=== PATIENT | female | born 1955 | race Caucasian/White ===

== ENCOUNTER → 2019-03-16 | Outpatient (CLI) | payer BC, MEDICARE ==
[~2019-03-16] MED LIST: ACET1TAB12 PO; HYDR-4068 PO; LISI10TA7 PO; META800T72 PO; ZOLP10TA2 PO
== END | disposition home or self-care (01) ==
LOC: SHCH 11:33
PROVIDERS: ATTEND Internal Medicine Cardiovascular Disease
DX: I87.2 Venous insufficiency (chronic) (peripheral) (principal); R60.9 Edema, unspecified
CPT/HCPCS: 93970

== ENCOUNTER → 2019-08-24 | Outpatient (CLI) | payer BC, MEDICARE | END | disposition home or self-care (01) | LOC: SHCH 08:14 | PROVIDERS: ATTEND Internal Medicine Cardiovascular Disease | DX: I82.812 Embolism and thrombosis of superficial veins of left lower extremity (principal) | CPT/HCPCS: 93971 ==

== ENCOUNTER → 2019-10-12 | Outpatient (CLI) | payer MEDICARE | END | disposition home or self-care (01) | LOC: SHCH 14:18 | PROVIDERS: ATTEND Internal Medicine Cardiovascular Disease | DX: Z09 Encounter for follow-up examination after completed treatment for conditions other than malignant neoplasm (principal); Z86.73 Personal history of transient ischemic attack (TIA), and cerebral infarction without residual deficits; Z95.1 Presence of aortocoronary bypass graft | CPT/HCPCS: 93971 ==

== ENCOUNTER → 2020-02-19 | Outpatient (CLI) | payer MEDICARE | END | disposition home or self-care (01) | LOC: SHCH 10:14 | PROVIDERS: ATTEND Internal Medicine Cardiovascular Disease | DX: I87.2 Venous insufficiency (chronic) (peripheral) (principal) | CPT/HCPCS: 93970 ==

== ENCOUNTER → 2021-01-26 | Outpatient (CLI) | payer MEDICARE ==
[~2021-01-26] MED LIST changes: +LISI10TA24 PO; -LISI10TA7 PO
== END | disposition home or self-care (01) ==
LOC: SHCH 08:52
PROVIDERS: ATTEND Internal Medicine Cardiovascular Disease
DX: I82.813 Embolism and thrombosis of superficial veins of lower extremities, bilateral (principal); I87.2 Venous insufficiency (chronic) (peripheral)
CPT/HCPCS: 93970

== ENCOUNTER → 2021-02-13 | Outpatient (CLI) | payer MEDICARE | END | disposition home or self-care (01) | LOC: SHCH 14:25 | PROVIDERS: ATTEND Internal Medicine Cardiovascular Disease | DX: I87.2 Venous insufficiency (chronic) (peripheral) (principal); Z09 Encounter for follow-up examination after completed treatment for conditions other than malignant neoplasm | CPT/HCPCS: 93971 ==

== ENCOUNTER → 2024-02-06 | Outpatient (CLI) | payer OTHER | END | disposition home or self-care (01) | LOC: LAB 12:42 | PROVIDERS: ATTEND Internal Medicine Cardiovascular Disease | DX: I11.9 Hypertensive heart disease without heart failure (principal); I73.9 Peripheral vascular disease, unspecified; R06.09 Other forms of dyspnea; R07.9 Chest pain, unspecified; I87.1 Compression of vein; I87.2 Venous insufficiency (chronic) (peripheral) | CPT/HCPCS: 93306; 93925; 93970 ==

== ENCOUNTER 2025-06-12 23:05 | Inpatient (IN) | payer OTHER ==
[~2025-06-12] VITALS: Ht 157.5 cm; Wt 99.3 kg
[~2025-06-12 23:05] MED LIST changes: +ZOLP-685 PO; -ZOLP10TA2 PO
[2025-06-12 23:40] LABS: IMMATURE GRANULOCYTE ABSOLUTE 0.11 K/uL (0-1); NUCLEATED RED BLOOD CELLS 0.1 % (0.0-0.19); PLATELET COUNT (AUTO) 161 K/uL (130-400); RED BLOOD CELL COUNT(AUTO) 4.52 MIL/uL (4.00-5.50); RED CELL DISTRIBUTION WIDTH 15.2 % (11.0-15.5); WHITE BLOOD COUNT (AUTO) 15.1 K/uL (4.8-10.8)
--- NOTE | 2025-06-12 23:51 | ERN ---
ED Note History of Present Illness Stated Complaint: GBW, FEVER, NVD Chief Complaint: Multiple Complaints Time Seen by MD: 23:17 Dictation: This is a 70-year-old female who presented to the emergency room via EMS with complaints of fever starting yesterday generalized body weakness nausea vomitings and diarrhea. She was diagnosed with COVID-19 infection 2 weeks ago. She stated that she was so weak she fell in the shower on her buttocks no loss of consciousness no bony deformities no abrasions Temperature 103.5 pulse 122 respirations 20 blood pressure 164/95 with a pulse oximetry of 100% on room air Chronic respiratory failure on home oxygen, pulmonary fibrosis, chronic back pain, history of mitral valve prolapse, COVID-19 infection Allergies: Coded Allergies: metoprolol (Unverified Allergy, Intermediate, 09/24/15) Home Meds Active Scripts Acetaminophen with Codeine (Tylenol with Codeine #3 Tablet) 1 Each Tablet, 1-2 TAB PO Q6H PRN for PAIN, #20 TAB Prov:GIOVANNI CARBAJAL MD 09/28/15 Reported Medications Metaxalone (Skelaxin) 800 Mg Tablet, 800 MG PO TID PRN for MUSCLE SPASMS, TAB 09/25/15 Hydrocodone/Acetaminophen (Hydrocodon-Acetaminophn 10-325) 1 Each Tablet, 1 TAB PO QID PRN for PAIN, TAB 09/25/15 Zolpidem Tartrate (Ambien) 10 Mg Tablet, 10 MG PO HS PRN for INSOMNIA, TAB 09/25/15 Lisinopril (Lisinopril) 10 Mg Tablet, 10 MG PO DAILY, TAB 09/25/15 Past Medical History Past Medical History: COPD, Hypertension, Lung Disease Additional Past Medical Hx: PULMONARY FIBROSIS Surgical History: Cholecystectomy Surgical History Other: MULTIPLE BACK SX Family History: Negative Social History: Drugs (Patient takes cannabis gummies for chronic back pain), ETOH (Social ingestion of alcohol) History: Not Applicable RN Note Reviewed/Agreed w/PFSH: Yes Review of System Dictation Constitutional: Positive for fever,chills, Eyes: Negative for injury, pain,redness, and discharge ENT: Negative for injury,pain or swelling Cardiovascular: Negative for chest pain, palpitations, and edema Respiratory: Negative for shortness of breath, cough, and wheezing, Abdomen/GI: Negative for abdominal pain, positive for nausea, vomiting, diarrhea , Back: Negative for injury and pain : Negative for injury, bleeding and discharge MS/Extremity: Negative for injury and deformity Skin: Negative for rash, and discoloration Neuro: Negative for headache, weakness, numbness, tingling, and seizure Psych: Negative for suicide ideation, homicidal ideation, and hallucinations Initial Vital Sign VS Vital Signs Date Time Temp Pulse Resp B/P (MAP) Pulse Ox O2 Delivery O2 Flow Rate FiO2 06/12/25 23:08 103.5 122 20 164/95 100 Nonrebreathing Mask 06/13/25 00:01 3 32 Physical Exam Dictation General: awake, alert, NAD extremely obese Head/Face: Normocephalic, atraumatic Eyes: PERRL, EOMI, vision at baseline ENT: oral cavity clear, TMs clear, no signs of infection Neck: Trachea midline, supple, no nuchal rigidity Cardiovascular: RRR, normal S1/S2, No MRGs, no JVD Respiratory: CTAB, no respiratory distress, No rales or wheezes Abdomen: Soft, non-tender, non-distended, normal bowel sounds, no guarding or rebound. Skin: Warm, dry, normal turgor, no rash MS/Extremity: Pulses equal, no cyanosis, neurovascular intact, FROM Neuro: COAx4, GCS 15, strength 5/5, CN 2-12 intact, normal cerebellar exam, normal gait, Psych: Normal behavior, mood, and affect normal Extremities-trace edema without any palpable cords, Homans sign is negative Results (Laboratory/Radiology) Laboratory/Radiology Laboratory Tests Test 06/12/25 23:37 White Blood Count 15.1 K/uL (4.8-10.8) H Red Blood Count 4.52 MIL/uL (4.00-5.50) Hemoglobin 11.9 g/dL (12.0-16.0) L Hematocrit 38.2 % (36-48) Mean Corpuscular Volume 84.5 fL (79-99) Mean Corpuscular Hemoglobin 26.3 pg (27.0-33.0) L Mean Corpuscular Hemoglobin Concent 31.2 g/dL (32.0-36.0) L Red Cell Distribution Width 15.2 % (11.0-15.5) Platelet Count 161 K/uL (130-400) Mean Platelet Volume 9.4 fL (7.5-10.5) Immature Granulocyte % (Auto) 0.7 % (0-1) Neutrophils (%) (Auto) 93.5 % (40.0-77.0) H Lymphocytes (%) (Auto) 3.4 % (21.0-51.0) L Monocytes (%) (Auto) 2.1 % (3.0-13.0) L Eosinophils (%) (Auto) 0.1 % (0.0-8.0) Basophils (%) (Auto) 0.2 % (0.0-5.0) Neutrophils # (Auto) 14.1 K/uL (1.8-7.7) H Lymphocytes # (Auto) 0.5 K/uL (1.0-4.8) L Monocytes # (Auto) 0.3 K/uL (0.1-1.0) Eosinophils # (Auto) 0.01 K/uL (0.00-0.70) Basophils # (Auto) 0.03 K/uL (0.00-0.20) Absolute Immature Granulocyte (auto 0.11 K/uL (0-1) Nucleated Red Blood Cells 0.1 % (0.0-0.19) White Cell Morphology Comment See comments Sodium Level 142 mmol/L (136-145) Potassium Level 2.1 mmol/L (3.5-5.1) *L Chloride Level 103 mmol/L (101-111) Carbon Dioxide Level 22 mmol/L (21-32) Blood Urea Nitrogen 8 mg/dL (7-18) Creatinine 1.1 mg/dL (0.5-1.0) H Glomerular Filtration Rate Calc 54 mL/min (>90) Random Glucose 177 mg/dL (70-105) H Lactic Acid Level 4.8 mmol/L (0.8-2.5) H Total Calcium 8.7 mg/dL (8.5-10.1) Total Creatine Kinase 78 U/L (21-232) Troponin I High Sensitivity 442 ng/L (4-50) *H Labs Reviewed?: Yes EKG Comment: Twelve lead EKG done on 06/12/2025 at 11:32 p.m. showed a heart rate of 110, WA interval 144, QRS 89, QT/QTC 293/396 Impression normal sinus rhythm with no acute ST elevations noted. Nonspecific STT wave changes are seen EKG rhythm strip shows normal sinus rhythm with nonspecific STT wave changes Interpreted by ER MD Dr. Shanks ED Course ED Course Orders Procedure Category Date Status Time Cbc With Differential LAB 06/12/25 Complete 23:17 Blood Cult CHIDI 06/12/25 In Process 23:17 Urinalysis Profile LAB 06/12/25 Logged 23:17 Creatine Kinase, Total LAB 06/12/25 Complete 23:17 Troponin I High LAB 06/12/25 Complete Sensitivity 23:17 Lactic Acid LAB 06/12/25 Complete 23:17 Basic Metabolic Panel LAB 06/12/25 Complete 23:17 Chest 1vw RAD 06/12/25 Resulted 23:17 0.9%Nacl 1000ml (Ns PHA 06/12/25 In Process 1000ml) 23:30 Acetaminophen 500mg PHA 06/12/25 Complete Tab (Tylenol 500mg T 23:30 12 Lead Ekg Tracing- EKG 06/13/25 Logged Technical 00:28 Potassium Chloride PHA 06/13/25 Complete 20meq/10ml (Kcl 20meq 00:30 Potassium Bicarb/Cit PHA 06/13/25 Complete Ac 25meq (K-Lyte Ta 00:30 Potassium Chloride PHA 06/13/25 In Process 10meq/100ml ([place] 01:00 Azithromycin 500mg+Ns PHA 06/13/25 Logged 250ml (Azithromyci 01:00 Ceftriaxone 2gm Vial PHA 06/13/25 Logged (Rocephin 2gm Inj) 01:00 Ipratropium/Albuterol PHA 06/13/25 Logged Neb (Duoneb) 01:00 Edm Admit Bridge Order ADM 06/13/25 Verified 00:50 Current Medications Medications (Trade) Dose Ordered Sig/Abby Route PRN Reason Start Time Stop Time Status Last Admin Dose Admin Acetaminophen (TYLenol 500MG TAB) 1,000 mg ONCE ONCE PO 06/12/25 23:30 06/12/25 23:32 DC 06/13/25 00:09 Albuterol (DUOneb) 1 UDVIAL ONCE ONCE IH 06/13/25 01:00 06/13/25 01:01 UNV Azithromycin 250 ml @ 250 mls/hr Q24H IVPB 06/13/25 01:00 06/23/25 00:59 UNV Ceftriaxone Sodium (Rocephin 2gm Inj) 2 gm ONCE ONCE IVPB 06/13/25 01:00 06/13/25 01:01 UNV Potassium Bicarbonate (K-Lyte Tablet Eff 25 Meq Tablet.eff) 50 meq ONCE ONCE PO 06/13/25 00:30 06/13/25 00:31 DC Potassium Chloride 10 meq/ Sodium Chloride 50 ml @ 50 mls/hr PROTOCOL IV 06/13/25 00:30 06/13/25 00:32 DC Potassium Chloride 100 ml @ 100 mls/hr ONCE ONCE IV 06/13/25 01:00 06/13/25 01:59 Sodium Chloride 2,250 ml @ 750 mls/hr ONCE ONCE IV 06/12/25 23:30 06/13/25 02:29 06/13/25 00:09 Vital Signs Date Time Temp Pulse Resp B/P (MAP) Pulse Ox O2 Delivery O2 Flow Rate FiO2 06/13/25 00:09 103.3 06/13/25 00:01 103.3 105 25 126/63 98 Nasal Cannula* 3 32 06/12/25 23:08 103.5 122 20 164/95 100 Nonrebreathing Mask We will perform diagnostic labs, advanced imaging and administer medications according to the patient's complaint. Once the results are available, will review and personally interpreted the labs to rule out any acute life- threatening emergency the trach require immediate intervention and treatment. I will then re-evaluate the patient after treatment and diagnostic exams have return to determine whether the patient requires any further testing, can safely be discharged home or need further admission to hospital for additional treatment and evaluation. Labs reviewed CBC showed a white count of 15.1 hemoglobin 11.9 platelets 161. Lactic acid was 4.8 BNP 7 and rest of the labs are pending at this time 12:30 a.m. BNP 7 showed a sodium of 142 potassium 2.1 BUN and creatinine are 8 and 1.1. Chest x-ray shows bilateral interstitial lung disease underlying pneumonia can not be ruled out I recommended admission to the hospital for severe sepsis with likely sources of pneumonitis or UTI or perhaps gastroenteritis and patient and spouse are agreeable 12:50 a.m. patient accepted by [facility] provider for hospitalist group for admission and further management Medical Decision Making MDM MDM: Differential diagnosis: Severe sepsis, pneumonia, UTI, lactic acidosis, cholecystitis, diverticulitis Rationale: Tests considered and ordered secondary to shared decision making include: labs, ECG and radiology Previous outside records reviewed: Old ER visits. Risk of complication and/or morbidity or mortality of patient management: None Medications-Per medication reconciliation Need for hospitalization: Patient does meet criteria for hospitalization. Need for emergency major/minor surgery: No There are no social concerns with this patient. Prescription drug management Prescriptions will include symptomatic care Patient's prior external medical records from other ER visits were reviewed by me as indicated. Prior testing and results from previous visits were reviewed. Prior tests were taken into account with medical decision making and resource utilization, independent historian/historians were used to obtain complete medical history. I independently interpreted the test that were performed, results were reviewed by me and considered findings on radiology if ordered. Medical management and examination interpretation discussions were had by me with other qualified healthcare professionals as indicated for the patient's care. Problem List Problem List: (1) Severe sepsis (2) Lactic acidosis (3) Leukocytosis (4) Hypokalemia (5) Pneumonitis (6) Interstitial lung disease (7) Acute and chronic respiratory failure (8) Gastroenteritis (9) COVID-19 virus infection DX & DISP Disposition: Inpatient Decision to Admit Time: 23:50 Departure Impression: Primary Impression: Severe sepsis Additional Impressions: Lactic acidosis, Leukocytosis Condition: Stable Additional Instructions: Patient was informed of all the diagnostic labs and procedures conducted in the emergency room today and demonstrated understanding of the results. I personally reviewed and interpreted all the diagnostic exams performed in the ER today. The patient will be admitted to the hospital for further treatment and evaluation. Disposition-admit to facility Condition-stable/guarded Course-uncertain at this time Pain status-decreased Assessment-exam unchanged Admission Certification- I certify that the patients status is appropriate and is based on my best clinical judgment and the patient's condition as documented in the medical records Referrals: SU BERNAL MD (PCP) TEOFILO SHANKS MD Jun 12, 2025 23:51
[2025-06-13] VITALS (14 sets, daily range): BP systolic 137–147; BP diastolic 64–78; PULSE 76–86; RESP 18–22; TEMP 97.8–103.3; O2SAT 93–96
[2025-06-13] MEDS: [UNRECOGNIZED DRUG - OTHER] IV ONE (00:09)
[2025-06-13 00:15] LABS: CREATINE KINASE, TOTAL 78.0 U/L (21-232); CREATININE 1.1 mg/dL (0.5-1.0); GLOMERULAR FILTR. RATE CALC 54.0 mL/min (>90); GLUCOSE,RANDOM 177.0 mg/dL (70-105); SODIUM SERUM 142.0 mmol/L (136-145); UREA NITROGEN, BLOOD 8.0 mg/dL (7-18)
--- NOTE | 2025-06-13 00:20 | HMCIMG ---
EXAM: CR Chest, 1 view CLINICAL HISTORY: Sepsis. COMPARISON: None provided. FINDINGS: Mild bibasilar airspace disease, likely atelectasis or infiltrates. Mild COPD. No large pleural effusion or pneumothorax. The cardiomediastinal silhouette is within normal limits. No acute osseous abnormality. IMPRESSION: Mild bibasilar airspace disease, likely atelectasis or infiltrates. Mild COPD. /[place]
[2025-06-13] MEDS: AZITHROMYCIN 500MG+NS 250ML 250 ML IVPB SCH (02:06)
[2025-06-13 02:11] LABS: APPEARANCE,URINE CLOUDY (CLEAR); GLUCOSE, URINE (UA) 30 mg/dL (NEGATIVE); LEUKOCYTE ESTERASE ,URINE 500 Leu/uL (NEGATIVE); NITRATE,URINE NEGATIVE (NEGATIVE); OCCULT BLOOD,URINE MODERATE (NEGATIVE)
--- NOTE | 2025-06-13 02:17 | HP ---
[facility] HISTORY AND PHYSICAL Date of Service: Jun 13, 2025 Time of Service: 02:17 PCP: Damian Alves HISTORY OF PRESENT ILLNESS: This is a 70-year-old female with past medical history of chronic back pain, mitral valve prolapse hypertension, Chronic obstructive pulmonary disease and pulmonary fibrosis who was brought by EMS to the ED for complaints of generalized body weakness, nausea, vomiting ,diarrhea and fall .As per ER report patient was found by her at the restroom ,following a fall and she landed on her buttocks and patient denies hitting her head nor passing out and called the ambulance.As per patient 's report she fainted and did not know what happened when she woke up the ambulance was already taking her out of the house she said.Patient reports she passed out and when she woke up she recognized her butdid not remember what happened .Patient initially complained of headache as per primary nurse.Patient states she had covid 2 weeks ago and she uses oxygen at home 3L/NC. Vital signs upon ER arrival temperature 103.5, heart rate 122, blood pressure 164/95, saturation 98% on 3 L nasal cannula.Patient reports she has a small lesion in her head that has been there due to psoriasis she said. Seen and examined patient in the ER awake , alert, coherent , follows commands and moves all extremities. Patient denies chest pain, palpitation, shortness of breaths and dizziness. Latest vital signs temperature a 100.2, heart rate 86, respiration 23, blood pressure 115/54, saturation 95% on 3 L. patient also reports she is taking THC gummies for her chronic back pain. Labs: WBC 15 with negative left shift of neutrophils 93, hemoglobin 11, hematocrit 38, platelet count 161. Potassium 2.1, creatinine 1.1, GFR 54 glucose 177, lactic acid 4.8, troponin 442. Urinalysis consistent with urinary tract infection. ECG result revealed sinus tachycardia heart rate 110 with probable left ventricular hypertrophy with secondary repolarization abnormalities. Chest x-ray result revealed mild bibasilar airspace disease, likely atelectasis or infiltrates. Mild Chronic obstructive pulmonary disease. While in the ER patient received IV fluid resuscitation of NS 30 mL/kilogram over 3 hours, Tylenol 1000 mg p.o., potassium replacement, albuterol neb treatment, Rocephin 2 g IV and azithromycin IV. We will admit patient for further medical management. REVIEW OF SYSTEMS CONSTITUTIONAL: Fever chills Denies night sweats. No unintentional weight loss reported. NEUROLOGICAL: Complain of generalized body weakness Denies headache, amaurosis fugax, sensory deficit, vertigo/spinning sensation, gait abnormalities, or tremors. ENT: No hearing loss, otalgia, otorrhea, rhinitis, rhinorrhea, hoarseness, or sore throat. CARDIOVASCULAR: Denies any exertional angina, dyspnea on exertion, orthopnea, paroxysmal nocturnal dyspnea, palpitations, life-threatening arrhythmias, claudication. PULMONARY: Denies any shortness of breath, cough, phlegm/sputum, hemoptysis, pleuritic chest pain. SLEEP: Denies morning headaches, daytime somnolence or napping. Denies difficulty falling asleep, staying asleep, waking from sleep. Denies knowledge of snoring. GASTROINTESTINAL: Nausea vomiting and diarrhea Denies any type of dysphagia to either liquids or solids. Denies pyrosis, early satiety, abdominal pain, constipation, or changes in stool consistency or caliber. Denies coffee-ground emesis, hematemesis, hematochezia, or melanotic stools. GENITOURINARY: Denies frequency, urgency, nocturia, hematuria or incontinence (Storage/Irritative symptoms.) Low urinary stream, straining to void, urinary intermittency or hesitancy, splitting of the voiding stream, terminal dribbling. ENDOCRINOLOGIC: Denies polyuria, polydipsia, polyphagia or heat/cold intolerances. HEMATOLOGIC: Denies thrombophilia/previous clots, or coagulopathy/bleeding disorders. ONCOLOGIC: Denies personal history of malignancy. DERMATOLOGIC: Denies rashes or pruritus. PSYCHIATRIC: Denies any suicidal or homicidal ideation. Denies hallucinations. PAST MEDICAL HISTORY: [ chronic back pain, mitral valve prolapse hypertension, Chronic obstructive pulmonary disease and pulmonary fibrosis ] PAST SURGICAL HISTORY: [Back surgery x8, left hip surgery x4 and hysterectomy ] PAST SOCIAL HISTORY: [ Patient lives . Patient admits taking HC gummy is for chronic back pain Patient denies alcohol tobacco and cocaine use] FAMILY HISTORY: [Asthma, Alzheimer's and cancer ] Coded Allergies: metoprolol (Unverified Allergy, Intermediate, 09/24/15) PHYSICAL EXAM GENERAL APPEARANCE: The patient is awake, alert, and oriented, in no acute cardiopulmonary distress. NEUROLOGICAL: Cranial nerves II-XII grossly intact. Motor is 5/5 in bilateral upper and lower extremities proximal to distal. No sensory deficits. HEENT: Face is symmetric. Pupils are equal and reactive. Extraocular movements are intact. NECK: Supple. No JVD. No thyromegaly. No submental, submandibular, pre- /postauricular, occipital or supraclavicular lymphadenopathy. CHEST: Normal chest expansion. No Telemetry. LUNGS: Absence of any rales, rhonchi or any wheezing. CARDIOVASCULAR: Regular. S1 and S2 normal. No appreciable rubs, murmurs or gallops. ABDOMEN: Soft, nontender, and nondistended. There is no rebound, voluntary guarding, or rigidity. : Deferred. No [place]. EXTREMITIES: Non-edematous and not cyanotic. No clubbing. Good capillary refill. SKIN: No skin breakdown. Vital Sign (Last 24 Hours) 06/13/25 06/13/25 06/13/25 00:01 00:09 01:06 Temp 103.3 Pulse 82 Resp 22 B/P (MAP) 126/63 Pulse Ox 98 O2 Delivery Nasal Cannula O2 Flow Rate 3.0 FiO2 32 LABS: Laboratory: Test 06/12/25 23:37 Range/Units White Blood Count 15.1 H 4.8-10.8 K/uL Red Blood Count 4.52 4.00-5.50 MIL/uL Hemoglobin 11.9 L 12.0-16.0 g/dL Hematocrit 38.2 36-48 % Mean Corpuscular Volume 84.5 79-99 fL Mean Corpuscular Hemoglobin 26.3 L 27.0-33.0 pg Mean Corpuscular Hemoglobin Concent 31.2 L 32.0-36.0 g/dL Red Cell Distribution Width 15.2 11.0-15.5 % Platelet Count 161 130-400 K/uL Mean Platelet Volume 9.4 7.5-10.5 fL Immature Granulocyte % (Auto) 0.7 0-1 % Neutrophils (%) (Auto) 93.5 H 40.0-77.0 % Lymphocytes (%) (Auto) 3.4 L 21.0-51.0 % Monocytes (%) (Auto) 2.1 L 3.0-13.0 % Eosinophils (%) (Auto) 0.1 0.0-8.0 % Basophils (%) (Auto) 0.2 0.0-5.0 % Neutrophils # (Auto) 14.1 H 1.8-7.7 K/uL Lymphocytes # (Auto) 0.5 L 1.0-4.8 K/uL Monocytes # (Auto) 0.3 0.1-1.0 K/uL Eosinophils # (Auto) 0.01 0.00-0.70 K/uL Basophils # (Auto) 0.03 0.00-0.20 K/uL Absolute Immature Granulocyte (auto 0.11 0-1 K/uL Nucleated Red Blood Cells 0.1 0.0-0.19 % White Cell Morphology Comment See comments Sodium Level 142 136-145 mmol/L Potassium Level 2.1 *L 3.5-5.1 mmol/L Chloride Level 103 101-111 mmol/L Carbon Dioxide Level 22 21-32 mmol/L Blood Urea Nitrogen 8 7-18 mg/dL Creatinine 1.1 H 0.5-1.0 mg/dL Glomerular Filtration Rate Calc 54 >90 mL/min Random Glucose 177 H 70-105 mg/dL Lactic Acid Level 4.8 H 0.8-2.5 mmol/L Total Calcium 8.7 8.5-10.1 mg/dL Total Creatine Kinase 78 21-232 U/L Troponin I High Sensitivity 442 *H 4-50 ng/L Current Medications Medications (Trade) Dose Ordered Sig/Abby Route PRN Reason Start Time Stop Time Status Last Admin Dose Admin Azithromycin 250 ml @ 250 mls/hr Q24H IVPB 06/13/25 01:00 06/23/25 00:59 06/13/25 02:06 250 MLS/HR Potassium Chloride 10 meq/ Sodium Chloride 50 ml @ 50 mls/hr PROTOCOL IV 06/13/25 00:30 06/13/25 00:32 DC DIAGNOSTICS / RADIOLOGY: [ ] ASSESSMENT: Severe sepsis POA Acute urinary tract infection POA Acute gastroenteritis POA Status post fall at home POA Syncope POA Hypokalemia POA Acute kidney injury POA Elevated troponin in the setting of sepsis POA Chronic back pain POA Chronic anemia POA Headache POA Hypertension POA Hyperglycemia POA Mild Chronic obstructive pulmonary disease POA Recent COVID infection POA Pulmonary fibrosis POA Acute on chronic hypoxemic respiratory failure on home O2 POA PLAN: We will admit patient in PCCU We will keep nothing by mouth Bedside swallow eval and if able to swallow with no problem advanced diet as tolerated to heart healthy diet We will start on Rocephin 1 g IV q.12 and Flagyl IV Q 8 hours We will start NS @ 100 ml / hr while on NPO status We will start on Protonix 40 mg IV daily for GI prophylaxis We will replace electrolytes as needed per protocol We will add prn medication for fever,pain,cough , nausea and vomiting We will reconcile home meds once medlist available We will check fecal occult blood x1, stool GI panel ova and parasite We will seek Infectious Disease consultation We will seek Cardiology consultation We will request case management service Neuro check q.4 hours per nursing Fall precautions We will request labs in am Further orders to follow depending on above results Case discussed with attending physician and came up with above treatment and plan of care. ADVANCED CARE PLANNING 1. Which of the following were discussed? Hospice Care - No Therapeutic options - Yes Advance Directives - No Other discussions - 2. Discussed with who? Patient 3. Voluntary nature of this service was explained to the patient? Yes 4. Amount of time spent - _25 5. Reviewed by Physician? (if this service was performed by NPP) Yes Patient seen and examined by me. Agree with note by FRONT END DEVELOPER SEE ADDITIONAL ORDERS PER CHART DISCUSSED WITH NURSING STAFF KEVIN ARTP Jun 13, 2025 02:17
--- NOTE | 2025-06-13 02:27 | NUR ---
DON DON AT BEDSIDE AT THIS TIME
[2025-06-13 02:29] LABS: ADD UA MICROSCOPIC YES
[2025-06-13 02:30] LABS: NON-SQUAMOUS EPITHELIAL CELL 1 /HPF (0-2); SQUAMOUS EPITHELIAL CELL,UR MANY /HPF (0-2); UNCLASSIFIED CRYSTAL 8 /HPF (None Seen)
[2025-06-13] MEDS ORDERED: NITROGLYCERIN 0.4 MG SL TAB SL PRN (03:00)
[2025-06-13] MEDS: 0.9%NACL 1000ML 1,000 ML IV SCH (04:03)
[2025-06-13 05:41] LABS: IMMATURE GRANULOCYTE ABSOLUTE 0.16 K/uL (0-1); NUCLEATED RED BLOOD CELLS 0.0 % (0.0-0.19); PLATELET COUNT (AUTO) 115 K/uL (130-400); RED BLOOD CELL COUNT(AUTO) 3.97 MIL/uL (4.00-5.50); RED CELL DISTRIBUTION WIDTH 15.3 % (11.0-15.5); WHITE BLOOD COUNT (AUTO) 15.7 K/uL (4.8-10.8)
--- NOTE | 2025-06-13 06:46 | NUR ---
SPOKE TO BRANDON AT THIS ABOUT TROPONIN LEVEL. NO ORDERS GIVEN AT THIS TIME.
[2025-06-13 06:50] LABS: ASPARTATE AMINOTRANSFERASE 216.0 U/L (10-37); CREATININE 1.0 mg/dL (0.5-1.0); GLOMERULAR FILTR. RATE CALC 60.0 mL/min (>90); GLUCOSE,RANDOM 99.0 mg/dL (70-105); LDL DIRECT 106.0 mg/dL (0-99); SODIUM SERUM 144.0 mmol/L (136-145); TOTAL PROTEIN, SERUM 5.8 g/dL (6.0-8.3); UREA NITROGEN, BLOOD 7.0 mg/dL (7-18)
--- NOTE | 2025-06-13 07:12 | NUR ---
REPORT GIVEN TO HANY NAGEL AT THIS TIME
[2025-06-13] MEDS ORDERED: MAGNESIUM 2GM PREMIX 50ML 50 ML IV PRN (09:00)
[2025-06-13 09:39] LABS: INR 1.28 (0.85-1.15)
--- NOTE | 2025-06-13 09:53 | NUR ---
Called Mrs. Wilda NAGEL for report. Notify her about pending consults. She verbalized understanding. SBAR in chart.
[2025-06-13] MEDS: ZOSYN 3.375GM +NS 50ML IV SCH (10:05)
[2025-06-13] MEDS: MAGNESIUM 2GM PREMIX 50ML 50 ML IV PRN (10:08)
--- NOTE | 2025-06-13 10:23 | NUR ---
MAGNESIUM COVERED PER IV PROTOCOL
[2025-06-13] MEDS ORDERED: IOHEXOL-350 75 ML VIAL IV ONE (14:08)
[2025-06-13] MEDS ORDERED: DOXYCYCLINE 100MG+NS 250ML 250 ML IV SCH (14:30)
--- NOTE | 2025-06-13 14:47 | EKG ---
[facility] Test Date: 2025-06-12 Test Time: 23:32:25 Pat Name: SHILPI SNELL Department[facility] Room: 226 1 Gender: F Integrity Director: [id number] : 1955 Requested By: TEOFILO SHANKS Order Number: [id number] Reading MD: Yazmin Lambert Measurements Intervals [place] Rate: 110 P: 24 SC: 144 QRS: -12 QRSD: 89 T: 151 QT: 293 QTc: 396 Interpretive Statements Sinus tachycardia Probable LVH with secondary repol abnrm Compared to ECG 09/25/2015 14:20:49 Sinus bradycardia no longer present Electronically Signed On 06-14-2025 15:28:37 CDT by Yazmin Lambert Please click the below link to view image of tracing.
--- NOTE | 2025-06-13 15:17 | PN ---
[facility] PROGRESS NOTE Date of Service: Jun 13, 2025 Time of Service: 14:28 SUBJECTIVE: This is a 70-year-old female with past medical history of chronic back pain, mitral valve prolapse, hypertension, Chronic obstructive pulmonary disease ,pulmonary fibrosis , h/o chronic cholecystitis with cholelithiasis, status post ERCP with removal of common bile duct stones (2014) who was brought by EMS to the ED with complaints of generalized body weakness, nausea, vomiting ,diarrhea and fall . The patient was found by her on the restroom floor following a fall, accordingly landing on her buttocks. She initially denied hitting her head or losing consciousness however upon further questioning she acknowledged having fainted but was unsure of exact sequence of events. She recalls regaining awareness while enroute to hospital in the ambulance. she complained of headache which resolved. Of note, she had a recent COVID-19 infection approximately 2 weeks back. Patient also uses supplemental oxygen at home via nasal cannula at 3 liter/minute. Vital signs upon ER arrival temperature 103.5, heart rate 122, blood pressure 164/95, saturation 98% on 3 L nasal cannula.Patient reports she has a small lesion in her head that has been there due to psoriasis she said. At the time of presentation she was alert, coherent , follows commands and moving all extremities. Patient denies chest pain, palpitation, shortness of breaths and dizziness. Latest vital signs temperature a 100.2, heart rate 86, respiration 23, blood pressure 115/54, saturation 95% on 3 L. patient also reports she is taking THC gummies for her chronic back pain. Labs: WBC 15 with negative left shift of neutrophils 93, hemoglobin 11, hematocrit 38, platelet count 161. Potassium 2.1, creatinine 1.1, GFR 54 gl ucose 177, lactic acid 4.8, troponin 442. Urinalysis consistent with urinary tract infection. ECG result revealed sinus tachycardia heart rate 110 with probable left ventricular hypertrophy with secondary repolarization abnormalities. Chest x-ray result revealed mild bibasilar airspace disease, likely atelectasis or infiltrates. Mild Chronic obstructive pulmonary disease. While in the ER patient received IV fluid resuscitation of NS 30 mL/kilogram over 3 hours, Tylenol 1000 mg p.o., potassium replacement, albuterol neb treatment, Rocephin 2 g IV and azithromycin IV. We will admit patient for further medical management. 06/13/2025: Patient is seen and evaluated at the bedside. She has severe sepsis secondary to urinary tract infection. Labs show improving lactic acid, improving WBCs, low magnesium, low platelets, abnormal liver function test, elevated troponin peaked at 680 . Her bilirubin is elevated at 7.3 And she report that she has been experiencing coffee colored watery stools for past2 days. She is also found to have a systolic murmur. ID, gastroenterology, pulmonology, Cardiology consults requested. As per the patient she has hand tremors now and complaints of back pain. We resumed her home Sho and Ambien. She is started on IV Zosyn and IV doxycycline. We will also request stool culture, C diff, echo, CT abdomen and pelvis. She is in no acute distress. REVIEW OF SYSTEMS CONSTITUTIONAL: Fever chills Denies night sweats. No unintentional weight loss reported. NEUROLOGICAL: Complain of generalized body weakness Denies headache, amaurosis fugax, sensory deficit, vertigo/spinning sensation, gait abnormalities, or tremors. ENT: No hearing loss, otalgia, otorrhea, rhinitis, rhinorrhea, hoarseness, or sore throat. CARDIOVASCULAR: Denies any exertional angina, dyspnea on exertion, orthopnea, paroxysmal nocturnal dyspnea, palpitations, life-threatening arrhythmias, claudication. PULMONARY: Denies any shortness of breath, cough, phlegm/sputum, hemoptysis, pleuritic chest pain. SLEEP: Denies morning headaches, daytime somnolence or napping. Denies difficulty falling asleep, staying asleep, waking from sleep. Denies knowledge of snoring. GASTROINTESTINAL: Nausea vomiting and diarrhea Denies any type of dysphagia to either liquids or solids. Denies pyrosis, early satiety, abdominal pain, constipation, or changes in stool consistency or caliber. Denies coffee-ground emesis, hematemesis, hematochezia, or melanotic stools. GENITOURINARY: Denies frequency, urgency, nocturia, hematuria or incontinence (Storage/Irritative symptoms.) Low urinary stream, straining to void, urinary intermittency or hesitancy, splitting of the voiding stream, terminal dribbling. ENDOCRINOLOGIC: Denies polyuria, polydipsia, polyphagia or heat/cold intolerances. Back pain + PHYSICAL EXAM GENERAL APPEARANCE: Morbidly obese female The patient is awake, alert, and oriented, mild distress NEUROLOGICAL: Cranial nerves II-XII grossly intact. Motor is 5/5 in bilateral upper and lower extremities proximal to distal. No sensory deficits. HEENT: Face is symmetric. Pupils are equal and reactive. Extraocular movements are intact. NECK: Supple. No JVD. No thyromegaly. No submental, submandibular, pre- /postauricular, occipital or supraclavicular lymphadenopathy. CHEST: Normal chest expansion. No Telemetry. LUNGS: Absence of any rales, rhonchi or any wheezing. CARDIOVASCULAR: Regular. S1 and S2 normal. Systolic murmur appreciable ABDOMEN: Soft, nontender, and nondistended. There is no rebound, voluntary guarding, or rigidity. : Deferred. No [place]. EXTREMITIES: Non-edematous and not cyanotic. No clubbing. Good capillary refill. SKIN: Ecchymotic patches seen Vital Signs (last 8hr) Date Time Temp Pulse Resp B/P (MAP) Pulse Ox O2 Delivery O2 Flow Rate FiO2 06/13/25 11:53 98.4 76 18 139/64 93 Nasal Cannula 2.0 06/13/25 10:48 99.0 82 18 141/70 95 Nasal Cannula 2.0 06/13/25 09:46 76 18 06/13/25 09:46 76 18 N/Cannula Low lpm 3.0 32 06/13/25 07:15 98.4 70 19 120/60 98 Room Air* 0 21 06/13/25 06:54 82 18 06/13/25 06:53 82 18 N/Cannula Low lpm 3.0 32 LABS: Laboratory: Test 06/13/25 12:41 06/13/25 09:12 06/13/25 06:11 06/13/25 05:12 Range/Units Lactic Acid Level 3.0 H 0.8-2.5 mmol/L Procalcitonin 162.23 H 0.05-0.5 ng/mL Free Thyroxine (T4) Direct 1.15 0.76-1.46 ng/dL Free Triiodothyronine (T3) pg/mL 1.34 L 2.18-3.98 pg/mL Prothrombin Time 13.2 H 9.6-11.6 SEC Prothromb Time International Ratio 1.28 H 0.85-1.15 Activated Partial Thromboplast Time 32.2 26.3-35.5 SEC Troponin I High Sensitivity 474 *H 4-50 ng/L SARS-CoV-2 Antigen (Rapid) PRESUMPTIVE NEGATIVE NEGATIVE White Blood Count 15.7 H 4.8-10.8 K/uL Red Blood Count 3.97 L 4.00-5.50 MIL/uL Hemoglobin 10.5 L 12.0-16.0 g/dL Hematocrit 33.8 L 36-48 % Mean Corpuscular Volume 85.1 79-99 fL Mean Corpuscular Hemoglobin 26.4 L 27.0-33.0 pg Mean Corpuscular Hemoglobin Concent 31.1 L 32.0-36.0 g/dL Red Cell Distribution Width 15.3 11.0-15.5 % Platelet Count 115 #L 130-400 K/uL Mean Platelet Volume 10.5 7.5-10.5 fL Immature Granulocyte % (Auto) 1.0 0-1 % Neutrophils (%) (Auto) 88.5 H 40.0-77.0 % Lymphocytes (%) (Auto) 4.0 L 21.0-51.0 % Monocytes (%) (Auto) 6.4 3.0-13.0 % Eosinophils (%) (Auto) 0.0 0.0-8.0 % Basophils (%) (Auto) 0.1 0.0-5.0 % Neutrophils # (Auto) 13.9 H 1.8-7.7 K/uL Lymphocytes # (Auto) 0.6 L 1.0-4.8 K/uL Monocytes # (Auto) 1.0 0.1-1.0 K/uL Eosinophils # (Auto) 0.00 0.00-0.70 K/uL Basophils # (Auto) 0.02 0.00-0.20 K/uL Absolute Immature Granulocyte (auto 0.16 0-1 K/uL Nucleated Red Blood Cells 0.0 0.0-0.19 % Sodium Level 144 136-145 mmol/L Potassium Level 3.7 3.5-5.1 mmol/L Chloride Level 109 101-111 mmol/L Carbon Dioxide Level 25 21-32 mmol/L Blood Urea Nitrogen 7 7-18 mg/dL Creatinine 1.0 0.5-1.0 mg/dL Glomerular Filtration Rate Calc 60 >90 mL/min Random Glucose 99 70-105 mg/dL Hemoglobin A1c 5.5 4.0-6.0 % Estimated Average Glucose (eAG) 111 70-126 mg/dL Total Calcium 8.1 L 8.5-10.1 mg/dL Magnesium Level 1.60 L 1.80-2.40 mg/dL Total Bilirubin 7.3 H 0.2-1.0 mg/dL Aspartate Amino Transf (AST/SGOT) 216 H 10-37 U/L Alanine Aminotransferase (ALT/SGPT) 196 H 12-78 U/L Alkaline Phosphatase 342 H 50-136 U/L B-Type Natriuretic Peptide 580 H 0-100 pg/mL Total Protein 5.8 L 6.0-8.3 g/dL Albumin 2.5 L 3.5-5.0 g/dL Triglycerides Level 82 30-200 mg/dL Cholesterol Level 162 <200 mg/dL LDL Cholesterol 106 H 0-99 mg/dL HDL Cholesterol 50 35-85 mg/dL Thyroid Stimulating Hormone (TSH) 0.33 L 0.36-3.74 uIU/mL Test 06/13/25 01:51 06/12/25 23:37 Range/Units Urine Color YELLOW YELLOW Urine Appearance CLOUDY H CLEAR Urine pH 6.0 5.0-8.0 Urine Specific [place] 1.008 1.001-1.031 Urine Protein 30 H NEGATIVE mg/dL Urine Glucose (UA) 30 H NEGATIVE mg/dL Urine Ketones NEGATIVE NEGATIVE mg/dL Urine Occult Blood MODERATE H NEGATIVE Urine Nitrate NEGATIVE NEGATIVE Urine Bilirubin NEGATIVE NEGATIVE mg/dL Urine Urobilinogen 0.2 0.2-1.0 mg/dL Urine Leukocyte Esterase 500 H NEGATIVE Amadou/uL Urine RBC 2-5 H 0-1 /HPF Urine WBC 26-50 H 0-1 /HPF Urine Squamous Epithelial Cells MANY 0-2 /HPF Urine Non-Squamous Epithelial Cells 1 0-2 /HPF Urine Other Crystals (Auto) 8 None Seen /HPF Urine Bacteria MOD None Seen /HPF White Cell Morphology Comment See comments Total Creatine Kinase 78 21-232 U/L Current Medications Medications (Trade) Dose Ordered Sig/Abby Route PRN Reason Start Time Stop Time Status Last Admin Dose Admin Acetaminophen (TYLenol 325MG TAB) 650 mg Q4H PRN PO MILD PAIN (1-3) 06/13/25 03:00 07/13/25 02:59 Acetaminophen (TYLenol 325MG TAB) 650 mg Q6H PRN PO TEMPERATURE GREATER THAN 101.5 06/13/25 03:00 07/13/25 02:59 06/13/25 11:37 650 MG Acetaminophen/ Hydrocodone Bitart (NORco 10) 1 tab Q4H PRN PO MODERATE PAIN (4-6) 06/13/25 14:30 06/13/25 14:24 DC Acetaminophen/ Hydrocodone Bitart (NORco 10) 1 tab Q6H PRN PO MODERATE PAIN (4-6) 06/13/25 14:30 06/20/25 14:29 Albuterol (DUOneb) 1 udvial [id number] IH 06/13/25 06:00 07/13/25 05:59 06/13/25 09:46 1 UDVIAL Amlodipine Besylate (NorvASC 5MG TAB) 5 mg DAILY PO 06/13/25 14:30 07/13/25 14:29 Azithromycin 250 ml @ 250 mls/hr Q24H IVPB 06/13/25 01:00 06/13/25 08:41 DC 06/13/25 02:06 250 MLS/HR Ceftriaxone Sodium (ROCEphine 1G INJ) 1 gm Q12H IV 06/14/25 01:00 06/13/25 08:41 DC Doxycycline Hyclate 250 ml @ 125 mls/hr Q12H IV 06/13/25 14:30 06/23/25 14:29 Magnesium Sulfate 50 ml @ 0 mls/hr PROTOCOL PRN IV OTHER [SEE ORDER COMMENTS] 06/13/25 03:00 07/13/25 02:59 06/13/25 10:08 25 MLS/HR Magnesium Sulfate 50 ml @ 0 mls/hr PROTOCOL PRN IV hypomagnesemia 06/13/25 09:00 06/13/25 08:45 DC Metronidazole/ Sodium Chloride 100 ml @ 100 mls/hr Q8H IV 06/13/25 03:00 06/13/25 08:41 DC 06/13/25 04:01 100 MLS/HR Nitroglycerin (Nitrostat) 0.4 mg PROTOCOL PRN SL CHEST PAIN 06/13/25 03:00 07/13/25 02:59 Ondansetron HCl (zoFRAN 4MG INJ) 4 mg Q6H PRN IV NAUSEA/VOMITING 06/13/25 03:00 07/13/25 02:59 Pantoprazole Sodium (PROTonix 40MG INJ) 40 mg DAILY IVP 06/13/25 09:00 07/13/25 08:59 06/13/25 10:05 40 MG Piperacillin Sod/ Tazobactam Sod (Zosyn 3.375gm+NS 50ml) 3.375 gm Q8H IV 06/13/25 09:00 06/23/25 08:59 06/13/25 10:05 3.375 GM Potassium Chloride 10 meq/ Sodium Chloride 50 ml @ 50 mls/hr PROTOCOL IV 06/13/25 00:30 06/13/25 00:32 DC Potassium Chloride 100 ml @ 100 mls/hr AD PRN IV POTASSIUM PROTOCOL 06/13/25 03:00 07/13/25 02:59 Potassium Chloride (K-Dur/Klor-Con 20meq) 20 meq AD PRN PO POTASSIUM PROTOCOL 06/13/25 03:00 07/13/25 02:59 Potassium Chloride (KCl 10% Elixir 20meq/15ml) 20 meq AD PRN PO POTASSIUM PROTOCOL 06/13/25 03:00 07/13/25 02:59 Sodium Chloride 1,000 ml @ 100 mls/hr Q10H IV 06/13/25 03:00 07/13/25 02:59 06/13/25 04:03 100 MLS/HR Zolpidem Tartrate (AmbIEN) 10 mg HS PRN PO INSOMNIA 06/13/25 14:30 07/13/25 14:29 DIAGNOSTICS / RADIOLOGY: [ ] ASSESSMENT: Severe sepsis POA Acute urinary tract infection POA Acute gastroenteritis POA Syncope POA ? in the setting of severe sepsis Status post fall at home POA Hyperbilirubinemia, Thrombocytopenia ,lactic acidosis , elevated transaminases - sepsis related liver dysfunction Hypokalemia POA Acute kidney injury POA Elevated troponin in the setting of sepsis POA Euthyroid sick syndrome in the setting of sepsis Pulmonary fibrosis POA Acute on chronic hypoxemic respiratory failure on home O2 POA Chronic back pain POA Chronic anemia POA Headache POA Hypertension POA Hyperglycemia POA Chronic obstructive pulmonary disease POA Recent COVID infection POA PLAN: patient admitted in [facility] Severe sepsis POA: source : Acute urinary tract infection POA Syncope POA ? in the setting of severe sepsis Status post fall at home POA Hyperbilirubinemia, lactic acidosis , elevated transaminases - sepsis related liver dysfunction Blood culture growing gram negative rods - pending final report Repeat blood culture requested started on IV Zosyn and IV Doxycycline Procalcitonin elevated at 162.[address] Abdomen , GI , cardiology and pulmonary consults Acute gastroenteritis POA Pending stool culture, c diff, stool occult blood test pending GI consult Hypokalemia POA continue replacing potassium Euthyroid sick syndrome in the setting of sepsis TSH 0.33, T3 1.34, T4 1.15 repeat thyroid levels in a month as outpatient Pulmonary fibrosis POA Acute on chronic hypoxemic respiratory failure on home O2 POA Patient on NC oxygen supplementation We will start on Protonix 40 mg IV daily for GI prophylaxis We will replace electrolytes as needed per protocol We will add prn medication for fever,pain,cough , nausea and vomiting We will reconcile home meds once medlist available We will check fecal occult blood x1, stool GI panel ova and parasite We will request case management service Neuro check q.4 hours per nursing Fall precautions ATTESTATION BY PHYSICIAN I have seen and examined the patient. I reviewed the documentation, medical decision making, and treatment plan as noted by the resident provider above. I a gree with the findings and plan of care. MARTHA CANCINO MD, MD Jun 13, 2025 15:17
[2025-06-13] MEDS: amLODIPine 5 MG TAB PO SCH (17:51)
[2025-06-13 19:35] LABS: AMPHET/METH SCREEN,URINE NEGATIVE (NEGATIVE); BARBITURATE SCREEN, URINE NEGATIVE (NEGATIVE); CANNABINOID SCREEN,URINE POSITIVE (NEGATIVE); COCAINE SCREEN,URINE NEGATIVE (NEGATIVE)
[2025-06-13] MEDS: DOXYCYCLINE 100MG+NS 250ML 250 ML IV SCH (21:26)
[2025-06-14] VITALS (17 sets, daily range): BP systolic 103–138; BP diastolic 51–73; PULSE 62–86; RESP 18–20; TEMP 97.8–98.3; O2SAT 91–98
[2025-06-14 03:57] LABS: IMMATURE GRANULOCYTE ABSOLUTE 0.25 K/uL (0-1); NUCLEATED RED BLOOD CELLS 0.0 % (0.0-0.19); PLATELET COUNT (AUTO) 104 K/uL (130-400); RED BLOOD CELL COUNT(AUTO) 3.55 MIL/uL (4.00-5.50); RED CELL DISTRIBUTION WIDTH 15.9 % (11.0-15.5); WHITE BLOOD COUNT (AUTO) 15.4 K/uL (4.8-10.8)
--- NOTE | 2025-06-14 03:58 | CONS ---
INFECTIOUS DISEASE CONSULTATION DATE OF SERVICE: 06/13/2025 REQUESTING PHYSICIAN: Felisa Orosco NP REASON FOR CONSULTATION: Gram-negative bacteremia and sepsis. HISTORY OF PRESENT ILLNESS: A 70-year-old female with obesity, hypertension, COPD, presented to the hospital with generalized body weakness and fall. The patient also has some nausea, vomiting and diarrhea. The patient has UTI and was found to have sepsis and subsequently admitted. T-max was 103.5, the patient's pulse was 122 and WBC of 15,000. Urinalysis positive. Blood culture growing Gram-negative hilda. The patient has been started on Zosyn. PAST MEDICAL HISTORY: * Chronic back pain. * Hypertension. * COPD. * Mitral valve prolapse. * Pulmonary fibrosis. * Obesity. PAST SURGICAL HISTORY: * Multiple back surgeries. * Left hip surgery. * Hysterectomy. ALLERGIES: No known drug allergies. CURRENT MEDICATIONS: Reviewed. SOCIAL HISTORY: No alcohol. No tobacco or illicit drug use. Lives with . FAMILY HISTORY: Noncontributory. REVIEW OF SYSTEMS: CONSTITUTIONAL: Positive for fever and chills. No weight loss or night sweats. EYES: No eye pain. No photophobia or diplopia. HENT: No sore throat. No rhinorrhea or earache. NECK: No neck pain or neck swelling. RESPIRATORY: No cough. No hemoptysis or pleuritic pain. CARDIOVASCULAR: No chest pain. No palpitation or orthopnea. GASTROINTESTINAL: Positive for nausea, vomiting, abdominal pain, diarrhea. GENITOURINARY: No dysuria, urgency, or urinary frequency. CENTRAL NERVOUS SYSTEM: No headache, dizziness, or slurred speech. PSYCHIATRY: No depression, no suicidal ideation. MUSCULOSKELETAL: Denies joint pain or joint swelling. PHYSICAL EXAMINATION: GENERAL: Elderly female, awake. VITAL SIGNS: Temperature 99.0, pulse 82, respiration 18, BP 141/70. EYES: No icterus. Pupils equal and reactive. HENT: No oral thrush seen. Moist oral mucosa. NECK: Supple. No JVD or thyromegaly. LUNGS: Good air entry. No rales, no rhonchi. CARDIOVASCULAR: S1 and S2 regular. No murmur heard. ABDOMEN: Obese, soft, nontender. Bowel sound is present. CENTRAL NERVOUS SYSTEM: Awake, alert, oriented x 3. No focal deficits. SKIN: No rashes, no itchiness. LYMPHATICS: No peripheral lymphadenopathy. BACK: No deformity, no pressure ulcer. LABORATORY DATA: Troponin 474. Sodium 144, potassium 3.7, BUN 7, creatinine 1.0. WBC 15.7, hemoglobin 10.5, platelet 116. Urinalysis, wbc is 15, leukocyte esterase 500. Blood culture growing Gram-negative hilda. Urine culture is pending. ASSESSMENT: A 70-year-old female with positive fever, chills, weakness. Current problems include: * Gram-negative sepsis. * Urinary tract infection. * Hypertension. * Obesity. * Anemia. * Leukocytosis. PLAN: * Continue Zosyn. * Follow up culture. * Continue pain management. * Continue antiemetic. * Monitor electrolytes and correct as needed. * Continue DVT prophylaxis. * . Thank you for allowing me to participate in the care of this patient. TID: [id number] RECEIPT: [id number] [facility]
[2025-06-14 04:25] LABS: % IRON SATURATION 7.3 % (22-44); IRON, SERUM 16.0 mcg/dL (50-170)
[2025-06-14 04:46] LABS: ASPARTATE AMINOTRANSFERASE 99.0 U/L (10-37); CREATININE 0.8 mg/dL (0.5-1.0); GLOMERULAR FILTR. RATE CALC 79.0 mL/min (>90); GLUCOSE,RANDOM 84.0 mg/dL (70-105); SODIUM SERUM 141.0 mmol/L (136-145); TOTAL PROTEIN, SERUM 5.3 g/dL (6.0-8.3); UREA NITROGEN, BLOOD 9.0 mg/dL (7-18)
[2025-06-14] MEDS: PoTASSium chl 10% ELIXIR 20MEQ 20 MEQ/15 ML UDCUP PO PRN (05:22)
--- NOTE | 2025-06-14 06:29 | HMCIMG ---
EXAMINATION: ULTRASOUND OF THE ABDOMEN (LIMITED) WITH COLOR DOPPLER. CLINICAL HISTORY: Coffee colored watery stools. COMPARISON: CT abdomen and pelvis with contrast from the same day. TECHNIQUE: Real-time grayscale ultrasound images of the abdomen. In addition, color Doppler is medically necessary to perform in order to evaluate vascularity and blood flow. FINDINGS: Liver: Bulky in caliber, the right hepatic lobe measures 19.0 cm in the craniocaudal dimension. There is increased echogenicity of the hepatic parenchyma. There is no focal hepatic abnormality. There is normal spectral Doppler of the main portal vein. The left intrahepatic biliary radicals are dilated and measures 0.5 cm. Gallbladder: Post cholecystectomy status. Common bile duct is dilated measuring 1.0 cm. Spleen is normal in caliber and measures 11.9 x 3.9 x 4.2 cm in craniocaudal, AP and transverse dimensions respectively. No focal lesions. Pancreas: Head and body appear normal in caliber and echotexture. No calcification or dilated pancreatic duct. Tail is obscured by overlying bowel gas. The left kidney is smaller in caliber and the right kidney is normal in caliber, the right kidney measures 9.7 x 4.1 x 3.6 cm and the left kidney measures 8.8 x 3.5 x 2.4 cm in craniocaudal, AP, and transverse dimensions respectively. There is normal renal cortical thickness, and cortical echogenicity. There is no renal calculus or hydronephrosis. The aorta and inferior vena cava is obscured by overlying bowel gas. IMPRESSION: Hepatomegaly with hepatic steatosis. Dilated left intrahepatic biliary radicals. Post cholecystectomy status. Dilated common bile duct. Recommend MRCP. Relatively small left kidney. Bilateral renal cysts in the CT study from the same day are not visualized. /Shanel
--- NOTE | 2025-06-14 07:03 | CONS ---
GASTROENTEROLOGY CONSULTATION NOTE Date of Consultation: Jun 14, 2025 Time of Consultation: 07:03 History of Present Illness: [ THIS IS A 70-YEAR-OLD female with past medical history of mitral valve prolapse hypertension, chronic obstructive pulmonary disease, pulmonary fibrosis, and chronic back pain who presented to the ER via EMS with complaints of generalized body weakness, nausea, vomiting, diarrhea, and a fall. Per ER report patient has some recollection of the events but then she reports that she does not remember what happened and remembers waking up when EMS was there on admission patient was found to have temperature of 103.5, WBC 15.1 HGB, 11.9,HCT 38.2, and platelets of 161. LFTs show elevated bilirubin of 7.3 on admission , AST of 216, ALT of 196, with albumin of 2.5. PT and INR are elevated. Abdominal ultrasound reveals a common bile duct of 1.0 cm postcholecystectomy status, hepatomegaly with hepatic steatosis, dilated left intrahepatic biliary radicles. We were consulted for melena, hyperbilirubinemia, and sepsis. ] Review of Systems: CONSTITUTIONAL: No malaise or change in sensation of wellbeing. ENMT: No rhinorrhea, otorrhea, sinus pain, ear ache. CARDIOVASCULAR: No angina, palpitations, orthopnea or paroxysmal dyspnea. RESPIRATORY: No SOB. GASTROINTESTINAL: No abdominal pain, nausea, vomiting, diarrhea, hematemesis, melena or change in the patient's habitual bowel movements consistency/number. GENITOURINARY: No dysuria, hematuria or change in bladder continence. MUSCULOSKELETAL: No new muscle pain or decrease in muscular strength. No new joint swelling, redness or tenderness. SKIN: No new rash. Past Medical History: PAST MEDICAL HISTORY: [ chronic back pain, mitral valve prolapse hypertension, Chronic obstructive pulmonary disease and pulmonary fibrosi PAST SURGICAL HISTORY: [Back surgery x8, left hip surgery x4 and hysterectomy ] PAST SOCIAL HISTORY: [ Patient lives . Patient admits taking HC gummy is for chronic back pain Patient denies alcohol tobacco and cocaine use] FAMILY HISTORY: [Asthma, Alzheimer's and cancer ] Coded Allergies: metoprolol (Unverified Allergy, Intermediate, 09/24/15) Coded Allergies: metoprolol (Unverified Allergy, Intermediate, 09/24/15) Physical Exam: GEN: Awake, alert, oriented in person, time and place, and in no acute distress. HEENT: No sinus tenderness. Tympanic membranes were not examined. No rhinorrhea. Oral pharyngeal mucosa is pink, moist and within normal limits. Neck is supple with no cervical lymphadenopathy, thyromegaly or JVD. CHEST: Inspection, palpation and percussion of the chest were unremarkable. Lung auscultation revealed normal breath sounds bilaterally. CARDIAC: PMI is within normal limits. Heart sounds are regular. Normal S1, S2. No gallop or murmur. ABD: Soft, non-tender and not distended. No peritoneal signs on palpation. No organomegaly. Normal bowel sounds. EXT: No cyanosis or clubbing. No edema. SKIN: Intact. No rashes. JOINTS: No evidence of synovitis or acute arthritis. NEURO: Alert and oriented to name, place and person. Cranial nerve examination is unremarkable. No focal motor deficits. Normal speech. Gait is normal. Strength is normal. Vital Sign (Last 24 Hours) 06/13/25 06/14/25 06/14/25 06/14/25 23:17 04:00 04:06 06:48 Temp 98.2 Pulse 73 Resp 18 B/P (MAP) 128/59 Pulse Ox 91 O2 Delivery N/Cannula Low lpm O2 Flow Rate 3.0 FiO2 32 Intake & Output (last 24hrs) 06/13/25 06/13/25 06/14/25 15:00 23:00 07:00 Intake Total 175 ml Output Total 1200 ml Balance -1025 ml Laboratory: [ ] Laboratory: Test 06/14/25 03:15 06/13/25 14:50 06/13/25 12:41 06/13/25 09:12 Range/Units White Blood Count 15.4 H 4.8-10.8 K/uL Red Blood Count 3.55 L 4.00-5.50 MIL/uL Hemoglobin 9.5 L 12.0-16.0 g/dL Hematocrit 30.0 L 36-48 % Mean Corpuscular Volume 84.5 79-99 fL Mean Corpuscular Hemoglobin 26.8 L 27.0-33.0 pg Mean Corpuscular Hemoglobin Concent 31.7 L 32.0-36.0 g/dL Red Cell Distribution Width 15.9 H 11.0-15.5 % Platelet Count 104 L 130-400 K/uL Mean Platelet Volume 10.6 H 7.5-10.5 fL Immature Granulocyte % (Auto) 1.6 H 0-1 % Neutrophils (%) (Auto) 84.2 H 40.0-77.0 % Lymphocytes (%) (Auto) 8.3 L 21.0-51.0 % Monocytes (%) (Auto) 5.4 3.0-13.0 % Eosinophils (%) (Auto) 0.2 0.0-8.0 % Basophils (%) (Auto) 0.3 0.0-5.0 % Neutrophils # (Auto) 13.0 H 1.8-7.7 K/uL Lymphocytes # (Auto) 1.3 1.0-4.8 K/uL Monocytes # (Auto) 0.8 0.1-1.0 K/uL Eosinophils # (Auto) 0.03 0.00-0.70 K/uL Basophils # (Auto) 0.04 0.00-0.20 K/uL Absolute Immature Granulocyte (auto 0.25 0-1 K/uL Nucleated Red Blood Cells 0.0 0.0-0.19 % Reticulocyte Count (auto) 1.65970 0.42-2.23 % Immature Reticulocyte Fraction 16.10 H 0.18-0.48 % Sodium Level 141 136-145 mmol/L Potassium Level 2.8 *L 3.5-5.1 mmol/L Chloride Level 107 101-111 mmol/L Carbon Dioxide Level 29 21-32 mmol/L Blood Urea Nitrogen 9 7-18 mg/dL Creatinine 0.8 0.5-1.0 mg/dL Glomerular Filtration Rate Calc 79 >90 mL/min Random Glucose 84 70-105 mg/dL Lactic Acid Level 1.3 0.8-2.5 mmol/L Total Calcium 7.7 L 8.5-10.1 mg/dL Magnesium Level 2.30 1.80-2.40 mg/dL Iron Level 16 L 50-170 mcg/dL Total Iron Binding Capacity 217 L 250-450 mcg/dL Percent Iron Saturation 7.3 L 22-44 % Ferritin 180 H 15-150 ng/mL Total Bilirubin 4.0 #H 0.2-1.0 mg/dL Aspartate Amino Transf (AST/SGOT) 99 H 10-37 U/L Alanine Aminotransferase (ALT/SGPT) 135 #H 12-78 U/L Alkaline Phosphatase 273 H 50-136 U/L Total Protein 5.3 L 6.0-8.3 g/dL Albumin 2.3 L 3.5-5.0 g/dL Vitamin B12 Level 345 193-986 pg/mL Ammonia < 10 L 11-32 umol/L Troponin I High Sensitivity 320 *H 4-50 ng/L Procalcitonin 162.23 H 0.05-0.5 ng/mL Free Thyroxine (T4) Direct 1.15 0.76-1.46 ng/dL Free Triiodothyronine (T3) pg/mL 1.34 L 2.18-3.98 pg/mL Prothrombin Time 13.2 H 9.6-11.6 SEC Prothromb Time International Ratio 1.28 H 0.85-1.15 Activated Partial Thromboplast Time 32.2 26.3-35.5 SEC Test 06/13/25 06:11 06/13/25 05:12 06/13/25 01:51 06/12/25 23:37 Range/Units SARS-CoV-2 Antigen (Rapid) PRESUMPTIVE NEGATIVE NEGATIVE Hemoglobin A1c 5.5 4.0-6.0 % Estimated Average Glucose (eAG) 111 70-126 mg/dL B-Type Natriuretic Peptide 580 H 0-100 pg/mL Triglycerides Level 82 30-200 mg/dL Cholesterol Level 162 <200 mg/dL LDL Cholesterol 106 H 0-99 mg/dL HDL Cholesterol 50 35-85 mg/dL Thyroid Stimulating Hormone (TSH) 0.33 L 0.36-3.74 uIU/mL Urine Color YELLOW YELLOW Urine Appearance CLOUDY H CLEAR Urine pH 6.0 5.0-8.0 Urine Specific [place] 1.008 1.001-1.031 Urine Protein 30 H NEGATIVE mg/dL Urine Glucose (UA) 30 H NEGATIVE mg/dL Urine Ketones NEGATIVE NEGATIVE mg/dL Urine Occult Blood MODERATE H NEGATIVE Urine Nitrate NEGATIVE NEGATIVE Urine Bilirubin NEGATIVE NEGATIVE mg/dL Urine Urobilinogen 0.2 0.2-1.0 mg/dL Urine Leukocyte Esterase 500 H NEGATIVE Amadou/uL Urine RBC 2-5 H 0-1 /HPF Urine WBC 26-50 H 0-1 /HPF Urine Squamous Epithelial Cells MANY 0-2 /HPF Urine Non-Squamous Epithelial Cells 1 0-2 /HPF Urine Other Crystals (Auto) 8 None Seen /HPF Urine Bacteria MOD None Seen /HPF Urine Opiates Screen POSITIVE H NEGATIVE Urine Barbiturates Screen NEGATIVE NEGATIVE Urine Phencyclidine Screen NEGATIVE NEGATIVE Urine Amphetamines Screen NEGATIVE NEGATIVE Urine Benzodiazepines Screen NEGATIVE NEGATIVE Urine Cocaine Screen NEGATIVE NEGATIVE Urine Marijuana (THC) Screen POSITIVE H NEGATIVE White Cell Morphology Comment See comments Total Creatine Kinase 78 21-232 U/L Current Medications Medications (Trade) Dose Ordered Sig/Abby Route PRN Reason Start Time Stop Time Status Last Admin Dose Admin Acetaminophen (TYLenol 325MG TAB) 650 mg Q4H PRN PO MILD PAIN (1-3) 06/13/25 03:00 07/13/25 02:59 Acetaminophen (TYLenol 325MG TAB) 650 mg Q6H PRN PO TEMPERATURE GREATER THAN 101.5 06/13/25 03:00 07/13/25 02:59 06/13/25 11:37 650 MG Acetaminophen/ Hydrocodone Bitart (NORco 10) 1 tab Q4H PRN PO MODERATE PAIN (4-6) 06/13/25 14:30 06/13/25 14:24 DC Acetaminophen/ Hydrocodone Bitart (NORco 10) 1 tab Q6H PRN PO MODERATE PAIN (4-6) 06/13/25 14:30 06/20/25 14:29 06/14/25 03:46 1 TAB Albuterol (DUOneb) 1 udvial [id number] IH 06/13/25 06:00 07/13/25 05:59 06/14/25 06:44 1 UDVIAL Amlodipine Besylate (NorvASC 5MG TAB) 5 mg DAILY PO 06/13/25 14:30 07/13/25 14:29 06/13/25 17:51 5 MG Azithromycin 250 ml @ 250 mls/hr Q24H IVPB 06/13/25 01:00 06/13/25 08:41 DC 06/13/25 02:06 250 MLS/HR Ceftriaxone Sodium (ROCEphine 1G INJ) 1 gm Q12H IV 06/14/25 01:00 06/13/25 08:41 DC Doxycycline Hyclate 250 ml @ 125 mls/hr Q12H IV 06/13/25 14:30 06/13/25 17:49 DC Doxycycline Hyclate 250 ml @ 125 mls/hr Q12H IV 06/13/25 20:00 06/23/25 19:59 06/13/25 21:26 125 MLS/HR Magnesium Sulfate 50 ml @ 0 mls/hr PROTOCOL PRN IV OTHER [SEE ORDER COMMENTS] 06/13/25 03:00 07/13/25 02:59 06/13/25 10:08 25 MLS/HR Magnesium Sulfate 50 ml @ 0 mls/hr PROTOCOL PRN IV hypomagnesemia 06/13/25 09:00 06/13/25 08:45 DC Metronidazole/ Sodium Chloride 100 ml @ 100 mls/hr Q8H IV 06/13/25 03:00 06/13/25 08:41 DC 06/13/25 04:01 100 MLS/HR Nitroglycerin (Nitrostat) 0.4 mg PROTOCOL PRN SL CHEST PAIN 06/13/25 03:00 07/13/25 02:59 Ondansetron HCl (zoFRAN 4MG INJ) 4 mg Q6H PRN IV NAUSEA/VOMITING 06/13/25 03:00 07/13/25 02:59 Pantoprazole Sodium (PROTonix 40MG INJ) 40 mg DAILY IVP 06/13/25 09:00 07/13/25 08:59 06/13/25 10:05 40 MG Piperacillin Sod/ Tazobactam Sod (Zosyn 3.375gm+NS 50ml) 3.375 gm Q8H IV 06/13/25 09:00 06/23/25 08:59 06/14/25 00:37 3.375 GM Potassium Chloride 10 meq/ Sodium Chloride 50 ml @ 50 mls/hr PROTOCOL IV 06/13/25 00:30 06/13/25 00:32 DC Potassium Chloride 100 ml @ 100 mls/hr AD PRN IV POTASSIUM PROTOCOL 06/13/25 03:00 07/13/25 02:59 Potassium Chloride (K-Dur/Klor-Con 20meq) 20 meq AD PRN PO POTASSIUM PROTOCOL 06/13/25 03:00 07/13/25 02:59 Potassium Chloride (KCl 10% Elixir 20meq/15ml) 20 meq AD PRN PO POTASSIUM PROTOCOL 06/13/25 03:00 07/13/25 02:59 06/14/25 05:23 20 MEQ Sodium Chloride 1,000 ml @ 100 mls/hr Q10H IV 06/13/25 03:00 07/13/25 02:59 06/14/25 00:38 100 MLS/HR Zolpidem Tartrate (AmbIEN) 10 mg HS PRN PO INSOMNIA 06/13/25 14:30 07/13/25 14:29 06/13/25 21:40 10 MG Diagnostics / Radiology: [COPY/PASTE HERE IF NO REPORTS PLEASE DELETE SECTION] Assessment: [Hyperbilirubinema Anemia Melena Elevated Transaminase CBD dilation Hypertension COPD ] Plan: Case Discussed with Dr. Garcia [1. Recommend MRI abdomen and MRCP recommended w/wo contrast. 2. Plan for EGD with EUS in am 3. Keep NPO 4. Trend HGB 5. Trend LFTs 6. Please call with questions, concerns, and change in clinical status Thank you for allowing us to be part of this patient's care.] JEMAL [employer] Jun 14, 2025 07:03
--- NOTE | 2025-06-14 07:17 | HMCIMG ---
EXAM: Non-contrast CT examination of the chest CLINICAL HISTORY: Bilateral lower lobe infiltrates. Sepsis. TECHNIQUE: Thin collimated axial CT images of the chest were obtained with sagittal and coronal reformatted images also submitted. CT scan is done according to ALARA (As Low as Reasonably Achievable). CONTRAST USED: None. COMPARISON: Chest radiograph dated 06/12/2025. FINDINGS: Symmetrical dependent atelectasis in the bilateral posterior basal lungs. No focal consolidation or pneumonia is evident. No pleural effusion or pneumothorax. No pericardial effusion. Mild to moderate cardiomegaly. Calcific atherosclerotic disease in the thoracic aorta and coronary arteries. Aortic root to ascending thoracic aortic aneurysm measures up to 4.5 x 4.3 cm in diameter. The pulmonary artery tract measures up to 3.5 cm in diameter. No mediastinal, axillary, or supraclavicular lymphadenopathy. Questionable diffuse atrophy of the thyroid gland. Mild left diaphragmatic eventration. There is a 3.1 cm cortical cyst at the right renal upper pole. Status postcholecystectomy. Small hiatus hernia. 2.1 cm hypodense cyst in the left hepatic lobe. Mildly enlarged spleen measures up to 12.8 cm in the long axis. No acute or suspicious osseous abnormality. S-shaped scoliosis. Degenerative osseous changes. IMPRESSION: Symmetrical dependent atelectasis in the bilateral posterior basal lungs. No focal consolidation, pneumonia, pleural effusion, pneumothorax. Aortic root to ascending thoracic aortic aneurysm measures up to 4.5 cm in maximum diameter. Incidental upper abdominal findings as described above. No gross changes within the limits of cross-modality comparison. /Shanel
--- NOTE | 2025-06-14 08:09 | HMCIMG ---
EXAM: CT Abdomen and Pelvis with IV contrast CLINICAL HISTORY: Acute gastroenteritis. TECHNIQUE: Thin collimated axial CT images of the abdomen and pelvis were obtained, with sagittal and coronal reformatted images also submitted. A CT scan is done according to ALARA (As Low As Reasonably Achievable). COMPARISON: None. FINDINGS: Unremarkable visualized lung parenchyma. There is no focal abnormality appreciated within the pancreas, spleen, or adrenals. Status post cholecystectomy. Dilated common bile duct measuring 1.2 cm. Mild central and peripheral dilatation of the biliary radicles. Mild hepatosplenomegaly. 2 cm nonenhancing cyst in the left lobe of the liver. There is a 3 cm cortical exophytic cyst in the upper pole of the right kidney. There is no obvious bowel wall thickening. Bowel loops are normal in caliber without evidence of obstruction or ileus. Small hiatus hernia. Small umbilical hernia containing a loop of small bowel. There is no abnormality within the urinary bladder. Status post hysterectomy. No lymphadenopathy. No free fluid. No pneumoperitoneum. There is patchy atherosclerotic calcification of the aorta and its major branches. There is a stent in the left common iliac vein. There is no acute osseous abnormality. Thoracolumbar spondylosis. Total left hip joint replacement. Intact fixation hardware in the lower lumbar spine. IMPRESSIONS: 1. No acute process in the abdomen and pelvis. 2. Status post cholecystectomy. Dilated common bile duct measuring 1.2 cm. Mild central and peripheral dilatation of the biliary radicles. 3. Mild hepatosplenomegaly. Simple hepatic cyst. 4. Bosniak classification 1 right renal cyst. 5. Small hiatus hernia. 6. Small umbilical hernia containing a loop of small bowel. /Marne
--- NOTE | 2025-06-14 10:09 | NUR ---
ATTEMPTED TO BRING THE PATIENT DOWN FOR MRCP W/WO CON. PT EXAM IS CURRENTLY ON HOLD DUE UNKNOWN PAIN PUMP AND PT NOT NPO.
[2025-06-14] MEDS ORDERED: GUMMY PO ×2 (10:13)
[2025-06-14] MEDS ORDERED: THC PO ×2 (10:13)
--- NOTE | 2025-06-14 10:16 | CONS ---
[facility] CARDIOLOGY CONSULTATION REPORT Cardiology consultation note dictated for Yazmin Lambert MD Date Patient Seen: Jun 14, 2025 Requesting Physician: MAGGY Flores Reason for Consultation: Elevated troponin History of Present Illness: This is a 70-year-old female with a past medical history of hypertension, self- reported mitral valve prolapse, 2D echo on 02/05/2025 with an EF of 65-70%, normal LV segmental wall motion, moderate to severe left atrial lodgement, venous insufficiency with Clarivein procedure of the left leg in 08/2019 and right leg in 10/2019, venous stent to the left common iliac into the left external iliac in 05/2021, 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 Manuel Gambino, on immunosuppressant CellCept, occipital neuralgia, migraines, fibromyalgia, chronic pain syndrome, COPD, pulmonary fibrosis, ARDS on chronic home O2 at 2-3 L via nasal cannula secondary to COVID, history of left lower extremity DVT in 2021 secondary to COVID, chronic back pain, history of skin cancer with resection, and THC gummies who presented to the ED with complaints of fever, generalized body weakness, nausea, vomiting, and diarrhea of 1 day in duration and is status post fall. Temperature on arrival 103.5 F, WBCs elevated at 15.1, and lactic acid in increased at 4.8. Urinalysis was positive with culture pending. Blood cultures drawn on 06/12/2025 demonstrated 2/2 sets with gram-negative rods. Potassium of 2.[address] of the chest on 06/14/2025 demonstrated an ascending thoracic aortic aneurysm measuring 4.5 cm. Abdominal ultrasound on 06/14/2025 demonstrated hepatomegaly with hepatic steatosis and a dilated common bile duct. CT of the abdomen on 06/13/2025 demonstrating no acute process but mild hepatosplenomegaly, simple hepatic cyst, right renal cysts, small hiatal hernia, and small umbilical hernia containing a small loop of small bowel. MRCP is pending. Stool studies are pending. Cardiology has been consulted for elevated troponin. The patient states she b theresa to have nausea, vomiting, and diarrhea since Saturday 06/09. The patient recalls having explosive diarrhea on 06/12 and waking up on the floor with EMS standing over her. She states she had loss of consciousness and her thinks she hit her head on the shower door. We will obtain a CT of the head to evaluate for bleeding. Troponin of 442, 680, 474, and 320. The patient currently denies chest pain, chest pressure, palpitations, dizziness, or shortness of breath. She denies a history of angina or ME. EKG demonstrated sinus tachycardia with a heart rate of 110bpm with ST depressions in V2-6. Past Medical History: As per HPI and summarized below Past Surgical History: Cholecystectomy Hip surgery Back surgery x7 Foot surgery Hysterectomy Family History: The patient's daughter in 2019 of the long QT syndrome at 41 years of age. Social History: The patient lives with her . Habits: The patient denies alcohol or tobacco use but does admit to using THC gummies f or pain control. Home Meds: THC 15mg gummy daily Tylenol No. 3 1-2 tabs every 6 hours p.r.n. pain Acetaminophen with hydrocodone 10-325 mg,1 tab q.i.d. p.r.n. pain Lisinopril 10 mg daily Skelaxin 800 mg t.i.d. p.r.n. Ambien 10 mg q.h.s. CellCept 500 mg tabs Current Meds: Medications Dose Ordered Sig/Abby Start Time Stop Time Status Last Admin Acetaminophen 650 mg Q6H PRN 06/13/25 03:00 07/13/25 02:59 06/13/25 11:37 Acetaminophen 650 mg Q4H PRN 06/13/25 03:00 07/13/25 02:59 Ondansetron HCl 4 mg Q6H PRN 06/13/25 03:00 07/13/25 02:59 Nitroglycerin 0.4 mg PROTOCOL PRN 06/13/25 03:00 07/13/25 02:59 Albuterol 1 udvial [id number] 06/13/25 06:00 07/13/25 05:59 06/14/25 06:44 Sodium Chloride 1,000 ml @ 100 mls/hr Q10H 06/13/25 03:00 07/13/25 02:59 06/14/25 00:38 Pantoprazole Sodium 40 mg DAILY 06/13/25 09:00 07/13/25 08:59 06/14/25 09:43 Magnesium Sulfate 50 ml @ 0 mls/hr PROTOCOL PRN 06/13/25 03:00 07/13/25 02:59 06/13/25 10:08 Potassium Chloride 100 ml @ 100 mls/hr AD PRN 06/13/25 03:00 07/13/25 02:59 Potassium Chloride 20 meq AD PRN 06/13/25 03:00 07/13/25 02:59 06/14/25 05:23 Potassium Chloride 20 meq AD PRN 06/13/25 03:00 07/13/25 02:59 Piperacillin Sod/ Tazobactam Sod 3.375 gm Q8H 06/13/25 09:00 06/23/25 08:59 06/14/25 00:37 Zolpidem Tartrate 10 mg HS PRN 06/13/25 14:30 07/13/25 14:29 06/13/25 21:40 Acetaminophen/ Hydrocodone Bitart 1 tab Q6H PRN 06/13/25 14:30 06/20/25 14:29 06/14/25 03:46 Amlodipine Besylate 5 mg DAILY 06/13/25 14:30 07/13/25 14:29 06/14/25 09:43 Doxycycline Hyclate 250 ml @ 125 mls/hr Q12H 06/13/25 20:00 06/23/25 19:59 06/14/25 09:44 Review of Systems: CONST: No fever, fatigue, or weight changes. EYES: No recent vision problems. ENT: No congestion, ear pain, or sore throat. C/V: No chest pain, palpitations, or edema. RESP: No cough, congestion, wheezing or shortness of breath. GI: No abdominal pain, nausea, vomiting, constipation, or diarrhea. : No incontinence or dysuria. SKIN: No rash. NEURO: No headache, focal numbness or weakness, dizziness, or seizures. PSYCH: No depression or anxiety. HEME: No abnormal bruising or bleeding. LYMPH: No swollen glands. Physical Examination: GENERAL: No acute distress. HEAD: Normal with no signs of head trauma. EYES: PERRLA, EOMI, conjunctiva and sclera normal. ENT: Hearing grossly intact, normal oropharynx. NECK: Supple without JVD. There is no tenderness, lymphadenopathy, or masses. No thyromegaly. Normal carotid upstrokes without bruits. LUNGS: Clear breath sounds bilaterally. No wheezes, or rhonchi. HEART: Normal rate and rhythm. Normal S1 and S2 without murmurs, gallop or rub. VASC: Peripheral pulses +2 bilaterally. ABD: Bowel sounds normal, soft, nontender, no masses, no organomegaly. No audible bruits. : Not examined LYMPH: No lymphadenopathy noted. EXT: No clubbing, cyanosis or edema. SKIN: No rashes or lesions noted. NEURO: Awake, alert, and oriented x3. No focal sensory or strength deficits noted. Vital Signs (last 8hr) Date Time Temp Pulse Resp B/P (MAP) Pulse Ox O2 Delivery O2 Flow Rate FiO2 06/14/25 08:33 97.9 75 18 106/51 93 Room Air 06/14/25 06:48 73 18 N/Cannula Low lpm 3.0 06/14/25 06:47 73 18 06/14/25 04:06 86 18 128/59 91 Nasal Cannula 2.0 06/14/25 04:03 80 18 104/59 92 Nasal Cannula 2.0 06/14/25 04:00 98.2 76 18 107/55 93 Room Air Laboratory: Hematology Labs: Test 06/14/25 03:15 06/12/25 23:37 Range/Units White Blood Count 15.4 H 4.8-10.8 K/uL Red Blood Count 3.55 L 4.00-5.50 MIL/uL Hemoglobin 9.5 L 12.0-16.0 g/dL Hematocrit 30.0 L 36-48 % Mean Corpuscular Volume 84.5 79-99 fL Mean Corpuscular Hemoglobin 26.8 L 27.0-33.0 pg Mean Corpuscular Hemoglobin Concent 31.7 L 32.0-36.0 g/dL Red Cell Distribution Width 15.9 H 11.0-15.5 % Platelet Count 104 L 130-400 K/uL Mean Platelet Volume 10.6 H 7.5-10.5 fL Immature Granulocyte % (Auto) 1.6 H 0-1 % Neutrophils (%) (Auto) 84.2 H 40.0-77.0 % Lymphocytes (%) (Auto) 8.3 L 21.0-51.0 % Monocytes (%) (Auto) 5.4 3.0-13.0 % Eosinophils (%) (Auto) 0.2 0.0-8.0 % Basophils (%) (Auto) 0.3 0.0-5.0 % Neutrophils # (Auto) 13.0 H 1.8-7.7 K/uL Lymphocytes # (Auto) 1.3 1.0-4.8 K/uL Monocytes # (Auto) 0.8 0.1-1.0 K/uL Eosinophils # (Auto) 0.03 0.00-0.70 K/uL Basophils # (Auto) 0.04 0.00-0.20 K/uL Absolute Immature Granulocyte (auto 0.25 0-1 K/uL Nucleated Red Blood Cells 0.0 0.0-0.19 % Reticulocyte Count (auto) 1.42903 0.42-2.23 % Immature Reticulocyte Fraction 16.10 H 0.18-0.48 % White Cell Morphology Comment See comments Chemistry Labs: Test 06/14/25 03:15 06/13/25 14:50 06/13/25 12:41 06/13/25 05:12 Range/Units Sodium Level 141 136-145 mmol/L Potassium Level 2.8 *L 3.5-5.1 mmol/L Chloride Level 107 101-111 mmol/L Carbon Dioxide Level 29 21-32 mmol/L Blood Urea Nitrogen 9 7-18 mg/dL Creatinine 0.8 0.5-1.0 mg/dL Glomerular Filtration Rate Calc 79 >90 mL/min Random Glucose 84 70-105 mg/dL Lactic Acid Level 1.3 0.8-2.5 mmol/L Total Calcium 7.7 L 8.5-10.1 mg/dL Magnesium Level 2.30 1.80-2.40 mg/dL Iron Level 16 L 50-170 mcg/dL Total Iron Binding Capacity 217 L 250-450 mcg/dL Percent Iron Saturation 7.3 L 22-44 % Ferritin 180 H 15-150 ng/mL Total Bilirubin 4.0 #H 0.2-1.0 mg/dL Aspartate Amino Transf (AST/SGOT) 99 H 10-37 U/L Alanine Aminotransferase (ALT/SGPT) 135 #H 12-78 U/L Alkaline Phosphatase 273 H 50-136 U/L Total Protein 5.3 L 6.0-8.3 g/dL Albumin 2.3 L 3.5-5.0 g/dL Vitamin B12 Level 345 193-986 pg/mL Ammonia < 10 L 11-32 umol/L Troponin I High Sensitivity 320 *H 4-50 ng/L Procalcitonin 162.23 H 0.05-0.5 ng/mL Free Thyroxine (T4) Direct 1.15 0.76-1.46 ng/dL Free Triiodothyronine (T3) pg/mL 1.34 L 2.18-3.98 pg/mL Hemoglobin A1c 5.5 4.0-6.0 % Estimated Average Glucose (eAG) 111 70-126 mg/dL B-Type Natriuretic Peptide 580 H 0-100 pg/mL Triglycerides Level 82 30-200 mg/dL Cholesterol Level 162 <200 mg/dL LDL Cholesterol 106 H 0-99 mg/dL HDL Cholesterol 50 35-85 mg/dL Thyroid Stimulating Hormone (TSH) 0.33 L 0.36-3.74 uIU/mL Test 06/12/25 23:37 Range/Units Total Creatine Kinase 78 21-232 U/L Coagulation Labs: Test 06/13/25 09:12 Range/Units Prothrombin Time 13.2 H 9.6-11.6 SEC Prothromb Time International Ratio 1.28 H 0.85-1.15 Activated Partial Thromboplast Time 32.2 26.3-35.5 SEC Diagnostics / Radiology: Impression and Plan: N/V/D/Fever Hypokalemia Blood cultures drawn on 06/12/2025 demonstrated 2/2 sets with gram-negative rods UTI Syncope NSTEMI, Type II ME CT of the chest on 06/14/2025 demonstrated an ascending thoracic aortic aneurysm measuring 4.5 cm. 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 Manuel Gambino, on immunosuppressant CellCept Occipital neuralgia, migraines, fibromyalgia, chronic back pain, chronic pain syndrome COPD, pulmonary fibrosis, ARDS on chronic home O2 at 2-3 L via nasal cannula secondary to COVID History of left lower extremity DVT in 2021 secondary to COVID History of skin cancer with resection Use of THC gummies Allergy to Metoprolol NSTEMI, Type II ME Troponin of 442, 680, 474, and 320 EKG demonstrated sinus tachycardia with a heart rate of 110bpm with ST depressions in V2-6. -Start Aspirin 81mg daily. -Hold off on Statin due to elevated LFTs -Plan for Lexiscan stress test in 72 hours -Further recommendations pending echocardiogram results Syncope -Obtained to CT of the head to evaluate for bleed Ascending thoracic aortic aneurysm CT of the chest on 06/14/2025 demonstrated an ascending thoracic aortic aneurysm measuring 4.5 cm. -Recommend strict blood pressure control to <140/80mmHg. -Allergy to Metoprolol (rash) therefore hold on beta blockers -Repeat CTA chest in [address] [facility] Jun 14, 2025 10:16 YAZMIN LAMBERT DO Jun 14, 2025 15:57
--- NOTE | 2025-06-14 11:12 | PN ---
[facility] PROGRESS NOTE Date of Service: Jun 14, 2025 Time of Service: 11:11 SUBJECTIVE: This is a 70-year-old female with past medical history of chronic back pain, mitral valve prolapse, hypertension, Chronic obstructive pulmonary disease ,pulmonary fibrosis , h/o chronic cholecystitis with cholelithiasis, status post ERCP with removal of common bile duct stones (2014) who was brought by EMS to the ED with complaints of generalized body weakness, nausea, vomiting ,diarrhea and fall . The patient was found by her on the restroom floor following a fall, accordingly landing on her buttocks. She initially denied hitting her head or losing consciousness however upon further questioning she acknowledged having fainted but was unsure of exact sequence of events. She recalls regaining awareness while enroute to hospital in the ambulance. she complained of headache which resolved. Of note, she had a recent COVID-19 infection approximately 2 weeks back. Patient also uses supplemental oxygen at home via nasal cannula at 3 liter/minute. Vital signs upon ER arrival temperature 103.5, heart rate 122, blood pressure 164/95, saturation 98% on 3 L nasal cannula.Patient reports she has a small lesion in her head that has been there due to psoriasis she said. At the time of presentation she was alert, coherent , follows commands and moving all extremities. Patient denies chest pain, palpitation, shortness of breaths and dizziness. Latest vital signs temperature a 100.2, heart rate 86, respiration 23, blood pressure 115/54, saturation 95% on 3 L. patient also reports she is taking THC gummies for her chronic back pain. Labs: WBC 15 with negative left shift of neutrophils 93, hemoglobin 11, hematocrit 38, platelet count 161. Potassium 2.1, creatinine 1.1, GFR 54 gl ucose 177, lactic acid 4.8, troponin 442. Urinalysis consistent with urinary tract infection. ECG result revealed sinus tachycardia heart rate 110 with probable left ventricular hypertrophy with secondary repolarization abnormalities. Chest x-ray result revealed mild bibasilar airspace disease, likely atelectasis or infiltrates. Mild Chronic obstructive pulmonary disease. While in the ER patient received IV fluid resuscitation of NS 30 mL/kilogram over 3 hours, Tylenol 1000 mg p.o., potassium replacement, albuterol neb treatment, Rocephin 2 g IV and azithromycin IV. We will admit patient for further medical management. 06/13/2025: Patient is seen and evaluated at the bedside. She has severe sepsis secondary to urinary tract infection. Labs show improving lactic acid, improving WBCs, low magnesium, low platelets, abnormal liver function test, elevated troponin peaked at 680 . Her bilirubin is elevated at 7.3 And she report that she has been experiencing coffee colored watery stools for past2 days. She is also found to have a systolic murmur. ID, gastroenterology, pulmonology, Cardiology consults requested. As per the patient she has hand tremors now and complaints of back pain. We resumed her home [place] and Ambien. She is started on IV Zosyn and IV doxycycline. We will also request stool culture, C diff, echo, CT abdomen and pelvis. She is in no acute distress. 06/14/2025: Patient is seen and evaluated at the bedside. She has severe sepsis secondary to urinary tract infection. Labs show improving lactic acid, WBC, abnormal liver functions, low platelets, low potassium, normal magnesium, iron - 16, TIBC- 217, %sat-7.3, ferritin-180. So we replaced potassium and started iron sucrose. She also has a history of autoimmune disease for which she is My cophenolate Mofetil. ID saw the patient and they recommended to continue zosyn, pain management, antiemetic, monitor electrolytes and correct as needed, Continue DVT prophylaxis. Surgery saw the patient and they recommend MRI abdomen and MRCP recommended w/wo contrast, EGD with EUS in am. MRCP not feasible for this patient because of pain pump and prothesis. Urine culture showed gram negative rods. She is in no acute distress. As there is a history of fall, we ordered a CT scan of head. CT Abdomen and pelvis showed status post cholecystectomy, Dilated common bile duct measuring 1.2 cm. Mild central and peripheral dilatation of the biliary radicles,Mild hepatosplenomegaly. Simple hepatic cyst,Bosniak classification 1 right renal cyst,Small hiatus hernia, Small umbilical hernia containing a loop of small bowel. As there is history of MVP we ordered a echocardiogram and it showed LVEF is 55-60%, The left ventricular diastolic function is normal,The right ventricle is mildly dilated, The left atrium is severely dilated. REVIEW OF SYSTEMS CONSTITUTIONAL: No fever. Denies night sweats. No unintentional weight loss reported. NEUROLOGICAL: Denies headache, amaurosis fugax, sensory deficit, vertigo/spinning sensation, gait abnormalities, or tremors. ENT: No hearing loss, otalgia, otorrhea, rhinitis, rhinorrhea, hoarseness, or sore throat. CARDIOVASCULAR: Denies any exertional angina, dyspnea on exertion, orthopnea, paroxysmal nocturnal dyspnea, palpitations, life-threatening arrhythmias, claudication. PULMONARY: Denies any shortness of breath, cough, phlegm/sputum, hemoptysis, pleuritic chest pain. SLEEP: Denies morning headaches, daytime somnolence or napping. Denies difficulty falling asleep, staying asleep, waking from sleep. Denies knowledge of snoring. GASTROINTESTINAL: No nausea, vomiting, abdominal pain. Denies any type of dysphagia to either liquids or solids. Denies pyrosis, early satiety, abdominal pain, constipation, or changes in stool consistency or caliber. Denies coffee-ground emesis, hematemesis, hematochezia, or melanotic stools. GENITOURINARY: Denies frequency, urgency, nocturia, hematuria or incontinence (Storage/Irritative symptoms.) Low urinary stream, straining to void, urinary intermittency or hesitancy, splitting of the voiding stream, terminal dribbling. ENDOCRINOLOGIC: Denies polyuria, polydipsia, polyphagia or heat/cold intolerances. Back pain + PHYSICAL EXAM GENERAL APPEARANCE: Morbidly obese female The patient is awake, alert, and oriented, mild distress NEUROLOGICAL: Cranial nerves II-XII grossly intact. Motor is 5/5 in bilateral upper and lower extremities proximal to distal. No sensory deficits. HEENT: Face is symmetric. Pupils are equal and reactive. Extraocular movements are intact. NECK: Supple. No JVD. No thyromegaly. No submental, submandibular, pre- /postauricular, occipital or supraclavicular lymphadenopathy. CHEST: Normal chest expansion. No Telemetry. LUNGS: Absence of any rales, rhonchi or any wheezing. CARDIOVASCULAR: Regular. S1 and S2 normal. Systolic murmur appreciable ABDOMEN: Soft, nontender, and nondistended. There is no rebound, voluntary guarding, or rigidity. : Deferred. No [place]. EXTREMITIES: Non-edematous and not cyanotic. No clubbing. Good capillary refill. SKIN: Ecchymotic patches seen Vital Signs (last 8hr) Date Time Temp Pulse Resp B/P (MAP) Pulse Ox O2 Delivery O2 Flow Rate FiO2 06/14/25 11:01 79 18 06/14/25 08:33 97.9 75 18 106/51 93 Room Air 06/14/25 06:48 73 18 N/Cannula Low lpm 3.0 06/14/25 06:47 73 18 06/14/25 04:06 86 18 128/59 91 Nasal Cannula 2.0 06/14/25 04:03 80 18 104/59 92 Nasal Cannula 2.0 06/14/25 04:00 98.2 76 18 107/55 93 Room Air LABS: Laboratory: Test 06/14/25 03:15 06/13/25 14:50 06/13/25 12:41 06/13/25 09:12 Range/Units White Blood Count 15.4 H 4.8-10.8 K/uL Red Blood Count 3.55 L 4.00-5.50 MIL/uL Hemoglobin 9.5 L 12.0-16.0 g/dL Hematocrit 30.0 L 36-48 % Mean Corpuscular Volume 84.5 79-99 fL Mean Corpuscular Hemoglobin 26.8 L 27.0-33.0 pg Mean Corpuscular Hemoglobin Concent 31.7 L 32.0-36.0 g/dL Red Cell Distribution Width 15.9 H 11.0-15.5 % Platelet Count 104 L 130-400 K/uL Mean Platelet Volume 10.6 H 7.5-10.5 fL Immature Granulocyte % (Auto) 1.6 H 0-1 % Neutrophils (%) (Auto) 84.2 H 40.0-77.0 % Lymphocytes (%) (Auto) 8.3 L 21.0-51.0 % Monocytes (%) (Auto) 5.4 3.0-13.0 % Eosinophils (%) (Auto) 0.2 0.0-8.0 % Basophils (%) (Auto) 0.3 0.0-5.0 % Neutrophils # (Auto) 13.0 H 1.8-7.7 K/uL Lymphocytes # (Auto) 1.3 1.0-4.8 K/uL Monocytes # (Auto) 0.8 0.1-1.0 K/uL Eosinophils # (Auto) 0.03 0.00-0.70 K/uL Basophils # (Auto) 0.04 0.00-0.20 K/uL Absolute Immature Granulocyte (auto 0.25 0-1 K/uL Nucleated Red Blood Cells 0.0 0.0-0.19 % Reticulocyte Count (auto) 1.89202 0.42-2.23 % Immature Reticulocyte Fraction 16.10 H 0.18-0.48 % Sodium Level 141 136-145 mmol/L Potassium Level 2.8 *L 3.5-5.1 mmol/L Chloride Level 107 101-111 mmol/L Carbon Dioxide Level 29 21-32 mmol/L Blood Urea Nitrogen 9 7-18 mg/dL Creatinine 0.8 0.5-1.0 mg/dL Glomerular Filtration Rate Calc 79 >90 mL/min Random Glucose 84 70-105 mg/dL Lactic Acid Level 1.3 0.8-2.5 mmol/L Total Calcium 7.7 L 8.5-10.1 mg/dL Magnesium Level 2.30 1.80-2.40 mg/dL Iron Level 16 L 50-170 mcg/dL Total Iron Binding Capacity 217 L 250-450 mcg/dL Percent Iron Saturation 7.3 L 22-44 % Ferritin 180 H 15-150 ng/mL Total Bilirubin 4.0 #H 0.2-1.0 mg/dL Aspartate Amino Transf (AST/SGOT) 99 H 10-37 U/L Alanine Aminotransferase (ALT/SGPT) 135 #H 12-78 U/L Alkaline Phosphatase 273 H 50-136 U/L Total Protein 5.3 L 6.0-8.3 g/dL Albumin 2.3 L 3.5-5.0 g/dL Vitamin B12 Level 345 193-986 pg/mL Ammonia < 10 L 11-32 umol/L Troponin I High Sensitivity 320 *H 4-50 ng/L Procalcitonin 162.23 H 0.05-0.5 ng/mL Free Thyroxine (T4) Direct 1.15 0.76-1.46 ng/dL Free Triiodothyronine (T3) pg/mL 1.34 L 2.18-3.98 pg/mL Prothrombin Time 13.2 H 9.6-11.6 SEC Prothromb Time International Ratio 1.28 H 0.85-1.15 Activated Partial Thromboplast Time 32.2 26.3-35.5 SEC Test 06/13/25 06:11 06/13/25 05:12 06/13/25 01:51 06/12/25 23:37 Range/Units SARS-CoV-2 Antigen (Rapid) PRESUMPTIVE NEGATIVE NEGATIVE Hemoglobin A1c 5.5 4.0-6.0 % Estimated Average Glucose (eAG) 111 70-126 mg/dL B-Type Natriuretic Peptide 580 H 0-100 pg/mL Triglycerides Level 82 30-200 mg/dL Cholesterol Level 162 <200 mg/dL LDL Cholesterol 106 H 0-99 mg/dL HDL Cholesterol 50 35-85 mg/dL Thyroid Stimulating Hormone (TSH) 0.33 L 0.36-3.74 uIU/mL Urine Color YELLOW YELLOW Urine Appearance CLOUDY H CLEAR Urine pH 6.0 5.0-8.0 Urine Specific [place] 1.008 1.001-1.031 Urine Protein 30 H NEGATIVE mg/dL Urine Glucose (UA) 30 H NEGATIVE mg/dL Urine Ketones NEGATIVE NEGATIVE mg/dL Urine Occult Blood MODERATE H NEGATIVE Urine Nitrate NEGATIVE NEGATIVE Urine Bilirubin NEGATIVE NEGATIVE mg/dL Urine Urobilinogen 0.2 0.2-1.0 mg/dL Urine Leukocyte Esterase 500 H NEGATIVE Amadou/uL Urine RBC 2-5 H 0-1 /HPF Urine WBC 26-50 H 0-1 /HPF Urine Squamous Epithelial Cells MANY 0-2 /HPF Urine Non-Squamous Epithelial Cells 1 0-2 /HPF Urine Other Crystals (Auto) 8 None Seen /HPF Urine Bacteria MOD None Seen /HPF Urine Opiates Screen POSITIVE H NEGATIVE Urine Barbiturates Screen NEGATIVE NEGATIVE Urine Phencyclidine Screen NEGATIVE NEGATIVE Urine Amphetamines Screen NEGATIVE NEGATIVE Urine Benzodiazepines Screen NEGATIVE NEGATIVE Urine Cocaine Screen NEGATIVE NEGATIVE Urine Marijuana (THC) Screen POSITIVE H NEGATIVE White Cell Morphology Comment See comments Total Creatine Kinase 78 21-232 U/L Current Medications Medications (Trade) Dose Ordered Sig/Abby Route PRN Reason Start Time Stop Time Status Last Admin Dose Admin Acetaminophen (TYLenol 325MG TAB) 650 mg Q4H PRN PO MILD PAIN (1-3) 06/13/25 03:00 07/13/25 02:59 Acetaminophen (TYLenol 325MG TAB) 650 mg Q6H PRN PO TEMPERATURE GREATER THAN 101.5 06/13/25 03:00 07/13/25 02:59 06/13/25 11:37 650 MG Acetaminophen/ Hydrocodone Bitart (NORco 10) 1 tab Q4H PRN PO MODERATE PAIN (4-6) 06/13/25 14:30 06/13/25 14:24 DC Acetaminophen/ Hydrocodone Bitart (NORco 10) 1 tab Q6H PRN PO MODERATE PAIN (4-6) 06/13/25 14:30 06/20/25 14:29 06/14/25 03:46 1 TAB Albuterol (DUOneb) 1 udvial [id number] IH 06/13/25 06:00 07/13/25 05:59 06/14/25 10:59 1 UDVIAL Amlodipine Besylate (NorvASC 5MG TAB) 5 mg DAILY PO 06/13/25 14:30 07/13/25 14:29 06/14/25 09:43 5 MG Azithromycin 250 ml @ 250 mls/hr Q24H IVPB 06/13/25 01:00 06/13/25 08:41 DC 06/13/25 02:06 250 MLS/HR Ceftriaxone Sodium (ROCEphine 1G INJ) 1 gm Q12H IV 06/14/25 01:00 06/13/25 08:41 DC Doxycycline Hyclate 250 ml @ 125 mls/hr Q12H IV 06/13/25 14:30 06/13/25 17:49 DC Doxycycline Hyclate 250 ml @ 125 mls/hr Q12H IV 06/13/25 20:00 06/23/25 19:59 06/14/25 09:44 125 MLS/HR Home Med (Home Medication) 10 each DAILY14 PO 06/14/25 14:00 06/14/25 10:33 DC Home Med (Home Medication) Thc 30MG Gummy: DOSE= 15 MG DAILY PO 06/15/25 09:00 07/15/25 08:59 Home Med (Home Medication) Thc Gummy 10MG DAILY14 PO 06/14/25 14:00 07/14/25 13:59 Magnesium Sulfate 50 ml @ 0 mls/hr PROTOCOL PRN IV OTHER [SEE ORDER COMMENTS] 06/13/25 03:00 07/13/25 02:59 06/13/25 10:08 25 MLS/HR Magnesium Sulfate 50 ml @ 0 mls/hr PROTOCOL PRN IV hypomagnesemia 06/13/25 09:00 06/13/25 08:45 DC Metronidazole/ Sodium Chloride 100 ml @ 100 mls/hr Q8H IV 06/13/25 03:00 06/13/25 08:41 DC 06/13/25 04:01 100 MLS/HR Nitroglycerin (Nitrostat) 0.4 mg PROTOCOL PRN SL CHEST PAIN 06/13/25 03:00 07/13/25 02:59 Ondansetron HCl (zoFRAN 4MG INJ) 4 mg Q6H PRN IV NAUSEA/VOMITING 06/13/25 03:00 07/13/25 02:59 Pantoprazole Sodium (PROTonix 40MG INJ) 40 mg DAILY IVP 06/13/25 09:00 07/13/25 08:59 06/14/25 09:43 40 MG Piperacillin Sod/ Tazobactam Sod (Zosyn 3.375gm+NS 50ml) 3.375 gm Q8H IV 06/13/25 09:00 06/23/25 08:59 06/14/25 10:43 3.375 GM Potassium Chloride 10 meq/ Sodium Chloride 50 ml @ 50 mls/hr PROTOCOL IV 06/13/25 00:30 06/13/25 00:32 DC Potassium Chloride 100 ml @ 100 mls/hr AD PRN IV POTASSIUM PROTOCOL 06/13/25 03:00 07/13/25 02:59 Potassium Chloride (K-Dur/Klor-Con 20meq) 20 meq AD PRN PO POTASSIUM PROTOCOL 06/13/25 03:00 07/13/25 02:59 Potassium Chloride (KCl 10% Elixir 20meq/15ml) 20 meq AD PRN PO POTASSIUM PROTOCOL 06/13/25 03:00 07/13/25 02:59 06/14/25 05:23 20 MEQ Sodium Chloride 1,000 ml @ 100 mls/hr Q10H IV 06/13/25 03:00 07/13/25 02:59 06/14/25 00:38 100 MLS/HR Zolpidem Tartrate (AmbIEN) 10 mg HS PRN PO INSOMNIA 06/13/25 14:30 07/13/25 14:29 06/13/25 21:40 10 MG DIAGNOSTICS / RADIOLOGY: [ ] ASSESSMENT: Severe sepsis POA Acute urinary tract infection POA Acute gastroenteritis POA Syncope POA ? in the setting of severe sepsis Status post fall at home POA Thrombocytopenia ,lactic acidosis - sepsis related liver dysfunction Biliary duct obstruction, POA Hypokalemia POA Acute kidney injury POA Elevated troponin, type 2 TN in the setting of sepsis POA Euthyroid sick syndrome in the setting of sepsis Pulmonary fibrosis POA Acute on chronic hypoxemic respiratory failure on home O2 POA Iron deficiency anemia Thoracic Ascending Aortic aneurysm,POA Chronic back pain POA Chronic anemia POA Headache POA Hypertension POA Hyperglycemia POA Chronic obstructive pulmonary disease POA Recent COVID infection POA PLAN: patient admitted in [facility] Severe sepsis POA: source : Acute urinary tract infection POA Syncope POA ? in the setting of severe sepsis Status post fall at home POA lactic acidosis , - sepsis related liver dysfunction Blood culture growing gram negative rods - pending final report Repeat blood culture requested started on IV Zosyn day 2 and IV Doxycycline day 2. Procalcitonin elevated at 162.[address] Abdomen , GI , cardiology and pulmonary consults Biliary obstruction, POA Gastroenterology saw the patient and advised EGD Acute gastroenteritis POA Pending stool culture, c diff, stool occult blood test GI saw the patient and they recommended MRCP but she is not NPO for MRCP they put it on hold. Also GI recommended EGD with EUS in am. Hypokalemia POA continue replacing potassium Euthyroid sick syndrome in the setting of sepsis TSH 0.33, T3 1.34, T4 1.15 repeat thyroid levels in a month as outpatient Pulmonary fibrosis POA Acute on chronic hypoxemic respiratory failure on home O2 POA Patient on NC oxygen supplementation Iron deficiency anemia Started on IV iron sucrose because her iron is 16, transferrin saturation is 7.3. Continue clear liquid diet. We will start on Protonix 40 mg IV daily for GI prophylaxis We will replace electrolytes as needed per protocol We will add prn medication for fever,pain,cough , nausea and vomiting We will check fecal occult blood x1, stool GI panel ova and parasite We will request case management service Neuro check q.4 hours per nursing Fall precautions DVT prophylaxis with SCD. ATTESTATION BY PHYSICIAN I have seen and examined the patient. I reviewed the documentation, medical decision making, and treatment plan as noted by the resident provider above. I agree with the findings and plan of care. Arslan Bah MD, AKSHAY MD Jun 14, 2025 11:12
[2025-06-14] MEDS ORDERED: MYCO500T PO (11:20)
--- NOTE | 2025-06-14 12:42 | CONS ---
[facility] CONSULTATION NOTE Date Patient Seen: Jun 14, 2025 Time of Visit: 12:36 Supervising Physician: [Dr Jean-Paul Paula ] Reason for Consultation: [ Pulmonary consultation ] Primary Care Physician: [ ] Outpatient Specialists: [ ] Inpatient Consults: [ ] ASSESSMENT: Severe sepsis POA Acute urinary tract infection POA Acute gastroenteritis POA Status post fall at home POA Syncope POA Hypokalemia POA Acute kidney injury POA Elevated troponin in the setting of sepsis POA Chronic back pain POA Chronic anemia POA Headache POA Hypertension POA Hyperglycemia POA Mild Chronic obstructive pulmonary disease POA Recent COVID infection POA Pulmonary fibrosis POA Acute on chronic hypoxemic respiratory failure on home O2 POA HPI: 70-year-old female with past medical history of chronic back pain, mitral valve prolapse hypertension, Chronic obstructive pulmonary disease and pulmonary fibrosis who was brought by EMS to the ED for complaints of generalized body weakness, nausea, vomiting ,diarrhea and fall .As per ER report patient was found by her at the restroom ,following a fall and she landed on her buttocks and patient denies hitting her head nor passing out and called the ambulance.As per patient 's report she fainted and did not know what happened when she woke up the ambulance was already taking her out of the house she said.Patient reports she passed out and when she woke up she recognized her butdid not remember what happened .Patient initially complained of headache as per primary nurse. Patient states she had covid 2 weeks ago and she uses oxygen at home 3L/NC. Vital signs upon ER arrival temperature 103.5, heart rate 122, blood pressure 164/95, saturation 98% on 3 L nasal cannula. patient also reports she is taking THC gummies for her chronic back pain. Labs: WBC 15 Potassium 2.1, lactic acid 4.8, troponin 442. Urinalysis consistent with urinary tract infection. ECG result revealed sinus tachycardia heart rate 110. Chest x-ray result revealed mild bibasilar airspace disease, likely atelectasis or infiltrates. Mild Chronic obstructive pulmonary disease. PLAN: CT head pending Cards consult - pending ECHO Tele Abx, follow cultures, Doxy, Zosyn FOllow GI recs, MRCP held due to pain stimulator for back Follow Hgb, no bleeding and Hgb stable Electrolyte replacement PAST MEDICAL HX: see above PAST SURGICAL HX: noncontributory SOCIAL HISTORY: No tobacco, ETOH, or illicit drug use Coded Allergies: metoprolol (Unverified Allergy, Intermediate, 09/24/15) REVIEW OF SYSTEMS: 12 point ROS reviewed with patient. Pertinent positives mentioned above. Otherwise negative. PHYSICAL EXAM: GENERAL: alert, weak, awake oriented x 3 HEENT: EOMI, Sclera non icteric, moist mucosa NECK: Supple, no JVD, trachea midline LUNGS: Clear breath sounds bilaterally. No wheezes HEART: Regular rate and rhythm. Normal S1 and S2, without murmurs ABD: Abdomen soft, nontender. Bowel sounds present EXT: No clubbing cyanosis or edema NEURO: Alert and oriented to person, follows commands Vital Signs (last 8hr) Date Time Temp Pulse Resp B/P (MAP) Pulse Ox O2 Delivery O2 Flow Rate FiO2 06/14/25 12:27 98.2 75 18 135/73 93 Room Air 06/14/25 11:01 79 18 06/14/25 08:33 97.9 75 18 106/51 93 Room Air 06/14/25 06:48 73 18 N/Cannula Low lpm 3.0 06/14/25 06:47 73 18 LABS: Hematology Labs: Test 06/14/25 03:15 06/12/25 23:37 Range/Units White Blood Count 15.4 H 4.8-10.8 K/uL Red Blood Count 3.55 L 4.00-5.50 MIL/uL Hemoglobin 9.5 L 12.0-16.0 g/dL Hematocrit 30.0 L 36-48 % Mean Corpuscular Volume 84.5 79-99 fL Mean Corpuscular Hemoglobin 26.8 L 27.0-33.0 pg Mean Corpuscular Hemoglobin Concent 31.7 L 32.0-36.0 g/dL Red Cell Distribution Width 15.9 H 11.0-15.5 % Platelet Count 104 L 130-400 K/uL Mean Platelet Volume 10.6 H 7.5-10.5 fL Immature Granulocyte % (Auto) 1.6 H 0-1 % Neutrophils (%) (Auto) 84.2 H 40.0-77.0 % Lymphocytes (%) (Auto) 8.3 L 21.0-51.0 % Monocytes (%) (Auto) 5.4 3.0-13.0 % Eosinophils (%) (Auto) 0.2 0.0-8.0 % Basophils (%) (Auto) 0.3 0.0-5.0 % Neutrophils # (Auto) 13.0 H 1.8-7.7 K/uL Lymphocytes # (Auto) 1.3 1.0-4.8 K/uL Monocytes # (Auto) 0.8 0.1-1.0 K/uL Eosinophils # (Auto) 0.03 0.00-0.70 K/uL Basophils # (Auto) 0.04 0.00-0.20 K/uL Absolute Immature Granulocyte (auto 0.25 0-1 K/uL Nucleated Red Blood Cells 0.0 0.0-0.19 % Reticulocyte Count (auto) 1.63300 0.42-2.23 % Immature Reticulocyte Fraction 16.10 H 0.18-0.48 % White Cell Morphology Comment See comments Chemistry Labs: Test 06/14/25 03:15 06/13/25 14:50 06/13/25 12:41 06/13/25 05:12 Range/Units Sodium Level 141 136-145 mmol/L Potassium Level 2.8 *L 3.5-5.1 mmol/L Chloride Level 107 101-111 mmol/L Carbon Dioxide Level 29 21-32 mmol/L Blood Urea Nitrogen 9 7-18 mg/dL Creatinine 0.8 0.5-1.0 mg/dL Glomerular Filtration Rate Calc 79 >90 mL/min Random Glucose 84 70-105 mg/dL Lactic Acid Level 1.3 0.8-2.5 mmol/L Total Calcium 7.7 L 8.5-10.1 mg/dL Magnesium Level 2.30 1.80-2.40 mg/dL Iron Level 16 L 50-170 mcg/dL Total Iron Binding Capacity 217 L 250-450 mcg/dL Percent Iron Saturation 7.3 L 22-44 % Ferritin 180 H 15-150 ng/mL Total Bilirubin 4.0 #H 0.2-1.0 mg/dL Aspartate Amino Transf (AST/SGOT) 99 H 10-37 U/L Alanine Aminotransferase (ALT/SGPT) 135 #H 12-78 U/L Alkaline Phosphatase 273 H 50-136 U/L Total Protein 5.3 L 6.0-8.3 g/dL Albumin 2.3 L 3.5-5.0 g/dL Vitamin B12 Level 345 193-986 pg/mL Ammonia < 10 L 11-32 umol/L Troponin I High Sensitivity 320 *H 4-50 ng/L Procalcitonin 162.23 H 0.05-0.5 ng/mL Free Thyroxine (T4) Direct 1.15 0.76-1.46 ng/dL Free Triiodothyronine (T3) pg/mL 1.34 L 2.18-3.98 pg/mL Hemoglobin A1c 5.5 4.0-6.0 % Estimated Average Glucose (eAG) 111 70-126 mg/dL B-Type Natriuretic Peptide 580 H 0-100 pg/mL Triglycerides Level 82 30-200 mg/dL Cholesterol Level 162 <200 mg/dL LDL Cholesterol 106 H 0-99 mg/dL HDL Cholesterol 50 35-85 mg/dL Thyroid Stimulating Hormone (TSH) 0.33 L 0.36-3.74 uIU/mL Test 06/12/25 23:37 Range/Units Total Creatine Kinase 78 21-232 U/L Coagulation Labs: Test 06/13/25 09:12 Range/Units Prothrombin Time 13.2 H 9.6-11.6 SEC Prothromb Time International Ratio 1.28 H 0.85-1.15 Activated Partial Thromboplast Time 32.2 26.3-35.5 SEC DIAGNOSTICS / RADIOLOGY RESULTS: [ ] PLAN NEURO: Minimize central acting medications as possible. Maintain fall precautions, adequate lighting during the day PULMONARY: Supplemental 02 as needed. Maintain aspiration precautions at all times CARDIOVASCULAR: Follow hemodynamics. Vital signs per facility protocol GI & NUTRITION: Continue with nutritional support. Continue stool softeners and laxatives as needed. KIDNEYS & ELECTROLYTES: Strict monitoring of intake, output and overall fluid balance. Avoid nephrotoxic medications to the extent possible. Medications to be dosed according to renal function. Monitor electrolytes and replace as needed ENDOCRINE: Maintain blood glucose between 100-180 at all times. Hypoglycemia protocol in place INFECTIOUS DISEASE: Trend temperature, WBC and procalcitonin level Follow cultures, deescalate antibiotics as soon as possible. Panculture if new onset fever ONCOLOGY/HEMATOLOGY/COAGULATION: Monitor for s/s of bleeding Monitor hemoglobin, coagulation studies as needed SKIN: Pressure ulcer prevention per facility protocol Specialty mattress ORTHO/REHAB: Continue PT/OT Prophylaxis: Continue GI and DVT prophylaxis Code Status: Full Resuscitation Disposition: TBD Other: Total patient care time exceeds 35 minutes excluding all procedures. CARMEN LEWIS Jun 14, 2025 12:42
[2025-06-14] MEDS: THC GUMMY PO SCH (13:40)
[2025-06-14] MEDS ORDERED: HOME MEDICATION 1 EACH PO SCH (14:00)
--- NOTE | 2025-06-14 14:17 | CONS ---
GASTROENTEROLOGY CONSULTATION NOTE Date of Consultation: Jun 14, 2025 Time of Consultation: 14:16 History of Present Illness: THIS IS A 70-YEAR-OLD female with past medical history of mitral valve prolapse hypertension, chronic obstructive pulmonary disease, pulmonary fibrosis, and chronic back pain who presented to the ER via EMS with complaints of generalized body weakness, nausea, vomiting, diarrhea, and a fall. Per ER report patient has some recollection of the events but then she reports that she does not remember what happened and remembers waking up when EMS was there on admission patient was found to have temperature of 103.5, WBC 15.1 HGB, 11.9,HCT 38.2, an d platelets of 161. LFTs show elevated bilirubin of 7.3 on admission , AST of 216, ALT of 196, with albumin of 2.5. PT and INR are elevated. Abdominal ultrasound reveals a common bile duct of 1.0 cm postcholecystectomy status, hepatomegaly with hepatic steatosis, dilated left intrahepatic biliary radicles. We were consulted for melena, hyperbilirubinemia, and sepsis. Review of Systems: CONSTITUTIONAL: No malaise or change in sensation of wellbeing. ENMT: No rhinorrhea, otorrhea, sinus pain, ear ache. CARDIOVASCULAR: No angina, palpitations, orthopnea or paroxysmal dyspnea. RESPIRATORY: No SOB. GASTROINTESTINAL: No abdominal pain, nausea, vomiting, diarrhea, hematemesis, melena or change in the patient's habitual bowel movements consistency/number. GENITOURINARY: No dysuria, hematuria or change in bladder continence. MUSCULOSKELETAL: No new muscle pain or decrease in muscular strength. No new joint swelling, redness or tenderness. SKIN: No new rash. Past Medical History: [ ] Past Surgical History: [ ] Past Social History: [ ] Family History: [ ] Coded Allergies: metoprolol (Unverified Allergy, Intermediate, 09/24/15) Physical Exam: GEN: Awake, alert, oriented in person, time and place, and in no acute distress. HEENT: No sinus tenderness. Tympanic membranes were not examined. No rhinorrhea. Oral pharyngeal mucosa is pink, moist and within normal limits. Neck is supple with no cervical lymphadenopathy, thyromegaly or JVD. CHEST: Inspection, palpation and percussion of the chest were unremarkable. Lung auscultation revealed normal breath sounds bilaterally. CARDIAC: PMI is within normal limits. Heart sounds are regular. Normal S1, S2. No gallop or murmur. ABD: Soft, non-tender and not distended. No peritoneal signs on palpation. No organomegaly. Normal bowel sounds. EXT: No cyanosis or clubbing. No edema. SKIN: Intact. No rashes. JOINTS: No evidence of synovitis or acute arthritis. NEURO: Alert and oriented to name, place and person. Cranial nerve examination is unremarkable. No focal motor deficits. Normal speech. Gait is normal. Strength is normal. Vital Sign (Last 24 Hours) 06/14/25 06/14/25 08:00 12:27 Temp 98.2 Pulse 75 Resp 18 B/P (MAP) 135/73 Pulse Ox 93 O2 Delivery Room Air O2 Flow Rate 3 FiO2 32 Intake & Output (last 24hrs) 06/13/25 06/13/25 06/14/25 15:00 23:00 07:00 Intake Total 175 ml 1800.0 ml Output Total 1200 ml Balance -1025 ml 1800.0 ml Laboratory: [ ] Laboratory: Test 06/14/25 03:15 06/13/25 14:50 06/13/25 12:41 06/13/25 09:12 Range/Units White Blood Count 15.4 H 4.8-10.8 K/uL Red Blood Count 3.55 L 4.00-5.50 MIL/uL Hemoglobin 9.5 L 12.0-16.0 g/dL Hematocrit 30.0 L 36-48 % Mean Corpuscular Volume 84.5 79-99 fL Mean Corpuscular Hemoglobin 26.8 L 27.0-33.0 pg Mean Corpuscular Hemoglobin Concent 31.7 L 32.0-36.0 g/dL Red Cell Distribution Width 15.9 H 11.0-15.5 % Platelet Count 104 L 130-400 K/uL Mean Platelet Volume 10.6 H 7.5-10.5 fL Immature Granulocyte % (Auto) 1.6 H 0-1 % Neutrophils (%) (Auto) 84.2 H 40.0-77.0 % Lymphocytes (%) (Auto) 8.3 L 21.0-51.0 % Monocytes (%) (Auto) 5.4 3.0-13.0 % Eosinophils (%) (Auto) 0.2 0.0-8.0 % Basophils (%) (Auto) 0.3 0.0-5.0 % Neutrophils # (Auto) 13.0 H 1.8-7.7 K/uL Lymphocytes # (Auto) 1.3 1.0-4.8 K/uL Monocytes # (Auto) 0.8 0.1-1.0 K/uL Eosinophils # (Auto) 0.03 0.00-0.70 K/uL Basophils # (Auto) 0.04 0.00-0.20 K/uL Absolute Immature Granulocyte (auto 0.25 0-1 K/uL Nucleated Red Blood Cells 0.0 0.0-0.19 % Reticulocyte Count (auto) 1.26031 0.42-2.23 % Immature Reticulocyte Fraction 16.10 H 0.18-0.48 % Sodium Level 141 136-145 mmol/L Potassium Level 2.8 *L 3.5-5.1 mmol/L Chloride Level 107 101-111 mmol/L Carbon Dioxide Level 29 21-32 mmol/L Blood Urea Nitrogen 9 7-18 mg/dL Creatinine 0.8 0.5-1.0 mg/dL Glomerular Filtration Rate Calc 79 >90 mL/min Random Glucose 84 70-105 mg/dL Lactic Acid Level 1.3 0.8-2.5 mmol/L Total Calcium 7.7 L 8.5-10.1 mg/dL Magnesium Level 2.30 1.80-2.40 mg/dL Iron Level 16 L 50-170 mcg/dL Total Iron Binding Capacity 217 L 250-450 mcg/dL Percent Iron Saturation 7.3 L 22-44 % Ferritin 180 H 15-150 ng/mL Total Bilirubin 4.0 #H 0.2-1.0 mg/dL Aspartate Amino Transf (AST/SGOT) 99 H 10-37 U/L Alanine Aminotransferase (ALT/SGPT) 135 #H 12-78 U/L Alkaline Phosphatase 273 H 50-136 U/L Total Protein 5.3 L 6.0-8.3 g/dL Albumin 2.3 L 3.5-5.0 g/dL Vitamin B12 Level 345 193-986 pg/mL Ammonia < 10 L 11-32 umol/L Troponin I High Sensitivity 320 *H 4-50 ng/L Procalcitonin 162.23 H 0.05-0.5 ng/mL Free Thyroxine (T4) Direct 1.15 0.76-1.46 ng/dL Free Triiodothyronine (T3) pg/mL 1.34 L 2.18-3.98 pg/mL Prothrombin Time 13.2 H 9.6-11.6 SEC Prothromb Time International Ratio 1.28 H 0.85-1.15 Activated Partial Thromboplast Time 32.2 26.3-35.5 SEC Test 06/13/25 06:11 06/13/25 05:12 06/13/25 01:51 06/12/25 23:37 Range/Units SARS-CoV-2 Antigen (Rapid) PRESUMPTIVE NEGATIVE NEGATIVE Hemoglobin A1c 5.5 4.0-6.0 % Estimated Average Glucose (eAG) 111 70-126 mg/dL B-Type Natriuretic Peptide 580 H 0-100 pg/mL Triglycerides Level 82 30-200 mg/dL Cholesterol Level 162 <200 mg/dL LDL Cholesterol 106 H 0-99 mg/dL HDL Cholesterol 50 35-85 mg/dL Thyroid Stimulating Hormone (TSH) 0.33 L 0.36-3.74 uIU/mL Urine Color YELLOW YELLOW Urine Appearance CLOUDY H CLEAR Urine pH 6.0 5.0-8.0 Urine Specific [place] 1.008 1.001-1.031 Urine Protein 30 H NEGATIVE mg/dL Urine Glucose (UA) 30 H NEGATIVE mg/dL Urine Ketones NEGATIVE NEGATIVE mg/dL Urine Occult Blood MODERATE H NEGATIVE Urine Nitrate NEGATIVE NEGATIVE Urine Bilirubin NEGATIVE NEGATIVE mg/dL Urine Urobilinogen 0.2 0.2-1.0 mg/dL Urine Leukocyte Esterase 500 H NEGATIVE Amadou/uL Urine RBC 2-5 H 0-1 /HPF Urine WBC 26-50 H 0-1 /HPF Urine Squamous Epithelial Cells MANY 0-2 /HPF Urine Non-Squamous Epithelial Cells 1 0-2 /HPF Urine Other Crystals (Auto) 8 None Seen /HPF Urine Bacteria MOD None Seen /HPF Urine Opiates Screen POSITIVE H NEGATIVE Urine Barbiturates Screen NEGATIVE NEGATIVE Urine Phencyclidine Screen NEGATIVE NEGATIVE Urine Amphetamines Screen NEGATIVE NEGATIVE Urine Benzodiazepines Screen NEGATIVE NEGATIVE Urine Cocaine Screen NEGATIVE NEGATIVE Urine Marijuana (THC) Screen POSITIVE H NEGATIVE White Cell Morphology Comment See comments Total Creatine Kinase 78 21-232 U/L Current Medications Medications (Trade) Dose Ordered Sig/Abby Route PRN Reason Start Time Stop Time Status Last Admin Dose Admin Acetaminophen (TYLenol 325MG TAB) 650 mg Q4H PRN PO MILD PAIN (1-3) 06/13/25 03:00 07/13/25 02:59 Acetaminophen (TYLenol 325MG TAB) 650 mg Q6H PRN PO TEMPERATURE GREATER THAN 101.5 06/13/25 03:00 07/13/25 02:59 06/13/25 11:37 650 MG Acetaminophen/ Hydrocodone Bitart (NORco 10) 1 tab Q4H PRN PO MODERATE PAIN (4-6) 06/13/25 14:30 06/13/25 14:24 DC Acetaminophen/ Hydrocodone Bitart (NORco 10) 1 tab Q6H PRN PO MODERATE PAIN (4-6) 06/13/25 14:30 06/20/25 14:29 06/14/25 12:19 1 TAB Albuterol (DUOneb) 1 udvial [id number] IH 06/13/25 06:00 07/13/25 05:59 06/14/25 10:59 1 UDVIAL Amlodipine Besylate (NorvASC 5MG TAB) 5 mg DAILY PO 06/13/25 14:30 07/13/25 14:29 06/14/25 09:43 5 MG Azithromycin 250 ml @ 250 mls/hr Q24H IVPB 06/13/25 01:00 06/13/25 08:41 DC 06/13/25 02:06 250 MLS/HR Ceftriaxone Sodium (ROCEphine 1G INJ) 1 gm Q12H IV 06/14/25 01:00 06/13/25 08:41 DC Doxycycline Hyclate 250 ml @ 125 mls/hr Q12H IV 06/13/25 14:30 06/13/25 17:49 DC Doxycycline Hyclate 250 ml @ 125 mls/hr Q12H IV 06/13/25 20:00 06/23/25 19:59 06/14/25 09:44 125 MLS/HR Home Med (Home Medication) 10 each DAILY14 PO 06/14/25 14:00 06/14/25 10:33 DC Home Med (Home Medication) Thc 30MG Gummy: DOSE= 15 MG DAILY PO 06/15/25 09:00 07/15/25 08:59 Home Med (Home Medication) Thc Gummy 10MG DAILY14 PO 06/14/25 14:00 07/14/25 13:59 06/14/25 13:40 1 EACH Magnesium Sulfate 50 ml @ 0 mls/hr PROTOCOL PRN IV OTHER [SEE ORDER COMMENTS] 06/13/25 03:00 07/13/25 02:59 06/13/25 10:08 25 MLS/HR Magnesium Sulfate 50 ml @ 0 mls/hr PROTOCOL PRN IV hypomagnesemia 06/13/25 09:00 06/13/25 08:45 DC Metronidazole/ Sodium Chloride 100 ml @ 100 mls/hr Q8H IV 06/13/25 03:00 06/13/25 08:41 DC 06/13/25 04:01 100 MLS/HR Nitroglycerin (Nitrostat) 0.4 mg PROTOCOL PRN SL CHEST PAIN 06/13/25 03:00 07/13/25 02:59 Ondansetron HCl (zoFRAN 4MG INJ) 4 mg Q6H PRN IV NAUSEA/VOMITING 06/13/25 03:00 07/13/25 02:59 Pantoprazole Sodium (PROTonix 40MG INJ) 40 mg DAILY IVP 06/13/25 09:00 07/13/25 08:59 06/14/25 09:43 40 MG Piperacillin Sod/ Tazobactam Sod (Zosyn 3.375gm+NS 50ml) 3.375 gm Q8H IV 06/13/25 09:00 06/23/25 08:59 06/14/25 10:43 3.375 GM Potassium Chloride 10 meq/ Sodium Chloride 50 ml @ 50 mls/hr PROTOCOL IV 06/13/25 00:30 06/13/25 00:32 DC Potassium Chloride 100 ml @ 100 mls/hr AD PRN IV POTASSIUM PROTOCOL 06/13/25 03:00 07/13/25 02:59 Potassium Chloride (K-Dur/Klor-Con 20meq) 20 meq AD PRN PO POTASSIUM PROTOCOL 06/13/25 03:00 07/13/25 02:59 Potassium Chloride (KCl 10% Elixir 20meq/15ml) 20 meq AD PRN PO POTASSIUM PROTOCOL 06/13/25 03:00 07/13/25 02:59 06/14/25 05:23 20 MEQ Sodium Chloride 1,000 ml @ 100 mls/hr Q10H IV 06/13/25 03:00 07/13/25 02:59 06/14/25 13:41 100 MLS/HR Zolpidem Tartrate (AmbIEN) 10 mg HS PRN PO INSOMNIA 06/13/25 14:30 07/13/25 14:29 06/13/25 21:40 10 MG Diagnostics / Radiology: [COPY/PASTE HERE IF NO REPORTS PLEASE DELETE SECTION] Assessment: [Hyperbilirubinema Anemia Melena Elevated Transaminase CBD dilation Hypertension COPD ] Plan: Case Discussed with Dr. Garcia EGD/EUS in am ANGELA CASTELAN [facility] Jun 14, 2025 14:17
--- NOTE | 2025-06-14 15:55 | NUR ---
[facility] Consult: Patient assessed by wound healing team. Patient with low jason score with no wounds noted, rash to abdominal fold/groin. Assessment and recommendations provided to primary nurse. Education provided. Addendum: 06/15/25 at 1531 by ZOHAIB BLUE RN RN/ Amended: Links added.
--- NOTE | 2025-06-14 16:00 | NUR ---
BEDSIDE SWALLOW EVAL COMPLETED. Recommend regular solids, thin liquids and pills whole with liquids as tolerated. -S/S of aspiration. Compensatory strategies: 1. sit upright during oral intake 2. small bites/sips 3. slow oral intake COACH WIRER reviewed results and recommendations with patient/family and nurse Keyonna. COACH WIRER educated patient on risks and consequences of aspiration. Speech therapy not warranted at this time. All questions answered. Addendum: 06/14/[address] CHUN GRUBER Amended: Links added.
--- NOTE | 2025-06-14 16:07 | PN ---
INFECTIOUS DISEASE PROGRESS NOTE Date of Service: Jun 14, 2025 SUBJECTIVE: This is a 70-year-old female patient who was seen at bedside in room 226. During visit today patient was getting a 2D echo done at bedside. The CT of the abdomen and pelvis showed a dilated common bile duct measuring 1.2 cm. We will obtain a MRCP as recommended. The preliminary blood cultures and the urine culture results is growing Gram-negative rods. We will continue on doxycycline and Zosyn and follow up on the final culture results. PHYSICAL EXAM EYES: Anicteric. Pupils equal and reactive. HENT: No oral thrush seen, moist Oral mucosa. NECK: Supple, no JVD or thyromegaly. LUNGS: Good air entry. No rales, no rhonchi. CARDIOVASCULAR: S1, S2 regular. No murmur heard. ABDOMEN: Soft, non tender, bowel sounds present, no organomegaly. CENTRAL NERVOUS SYSTEM: Awake, alert, oriented x 3. SKIN: No rashes, no swelling. LYMPHATICS: No peripheral lymphadenopathy. MUSCULOSKELETAL: No joint swelling, erythema or tenderness. EXTREMITIES: No cyanosis or clubbing. BACK: No deformity, no pressure ulcer. GENITOURINARY: No dysuria or hematuria. Vital Sign (Last 12 Hours) 06/14/25 06/14/25 06/14/25 06/14/25 04:00 04:03 04:06 06:47 Temp 98.2 Pulse 76 80 86 73 Resp 18 18 18 18 B/P (MAP) 107/55 104/59 128/59 Pulse Ox 93 92 91 O2 Delivery Room Air Nasal Cannula Nasal Cannula O2 Flow Rate 2.0 2.0 06/14/25 06/14/25 06/14/25 06/14/25 06:48 08:00 08:33 11:01 Temp 97.9 Pulse 73 75 79 Resp 18 18 18 B/P (MAP) 106/51 Pulse Ox 91 93 O2 Delivery N/Cannula Low lpm Nasal Cannula* Room Air O2 Flow Rate 3.0 3 FiO2 32 06/14/25 06/14/25 06/14/25 12:27 15:23 15:23 Temp 98.2 Pulse 75 71 71 Resp 18 18 18 B/P (MAP) 135/73 Pulse Ox 93 O2 Delivery Room Air N/Cannula Low lpm O2 Flow Rate 2.0 Intake & Output (last 24hrs) 06/13/25 06/13/25 06/14/25 15:00 23:00 07:00 Intake Total 175 ml 1800.0 ml Output Total 1200 ml Balance -1025 ml 1800.0 ml LABS: Laboratory: Test 06/14/25 03:15 06/13/25 14:50 06/13/25 12:41 06/13/25 09:12 Range/Units White Blood Count 15.4 H 4.8-10.8 K/uL Red Blood Count 3.55 L 4.00-5.50 MIL/uL Hemoglobin 9.5 L 12.0-16.0 g/dL Hematocrit 30.0 L 36-48 % Mean Corpuscular Volume 84.5 79-99 fL Mean Corpuscular Hemoglobin 26.8 L 27.0-33.0 pg Mean Corpuscular Hemoglobin Concent 31.7 L 32.0-36.0 g/dL Red Cell Distribution Width 15.9 H 11.0-15.5 % Platelet Count 104 L 130-400 K/uL Mean Platelet Volume 10.6 H 7.5-10.5 fL Immature Granulocyte % (Auto) 1.6 H 0-1 % Neutrophils (%) (Auto) 84.2 H 40.0-77.0 % Lymphocytes (%) (Auto) 8.3 L 21.0-51.0 % Monocytes (%) (Auto) 5.4 3.0-13.0 % Eosinophils (%) (Auto) 0.2 0.0-8.0 % Basophils (%) (Auto) 0.3 0.0-5.0 % Neutrophils # (Auto) 13.0 H 1.8-7.7 K/uL Lymphocytes # (Auto) 1.3 1.0-4.8 K/uL Monocytes # (Auto) 0.8 0.1-1.0 K/uL Eosinophils # (Auto) 0.03 0.00-0.70 K/uL Basophils # (Auto) 0.04 0.00-0.20 K/uL Absolute Immature Granulocyte (auto 0.25 0-1 K/uL Nucleated Red Blood Cells 0.0 0.0-0.19 % Reticulocyte Count (auto) 1.42790 0.42-2.23 % Immature Reticulocyte Fraction 16.10 H 0.18-0.48 % Sodium Level 141 136-145 mmol/L Potassium Level 2.8 *L 3.5-5.1 mmol/L Chloride Level 107 101-111 mmol/L Carbon Dioxide Level 29 21-32 mmol/L Blood Urea Nitrogen 9 7-18 mg/dL Creatinine 0.8 0.5-1.0 mg/dL Glomerular Filtration Rate Calc 79 >90 mL/min Random Glucose 84 70-105 mg/dL Lactic Acid Level 1.3 0.8-2.5 mmol/L Total Calcium 7.7 L 8.5-10.1 mg/dL Magnesium Level 2.30 1.80-2.40 mg/dL Iron Level 16 L 50-170 mcg/dL Total Iron Binding Capacity 217 L 250-450 mcg/dL Percent Iron Saturation 7.3 L 22-44 % Ferritin 180 H 15-150 ng/mL Total Bilirubin 4.0 #H 0.2-1.0 mg/dL Aspartate Amino Transf (AST/SGOT) 99 H 10-37 U/L Alanine Aminotransferase (ALT/SGPT) 135 #H 12-78 U/L Alkaline Phosphatase 273 H 50-136 U/L Total Protein 5.3 L 6.0-8.3 g/dL Albumin 2.3 L 3.5-5.0 g/dL Vitamin B12 Level 345 193-986 pg/mL Ammonia < 10 L 11-32 umol/L Troponin I High Sensitivity 320 *H 4-50 ng/L Procalcitonin 162.23 H 0.05-0.5 ng/mL Free Thyroxine (T4) Direct 1.15 0.76-1.46 ng/dL Free Triiodothyronine (T3) pg/mL 1.34 L 2.18-3.98 pg/mL Prothrombin Time 13.2 H 9.6-11.6 SEC Prothromb Time International Ratio 1.28 H 0.85-1.15 Activated Partial Thromboplast Time 32.2 26.3-35.5 SEC Test 06/13/25 06:11 06/13/25 05:12 06/13/25 01:51 06/12/25 23:37 Range/Units SARS-CoV-2 Antigen (Rapid) PRESUMPTIVE NEGATIVE NEGATIVE Hemoglobin A1c 5.5 4.0-6.0 % Estimated Average Glucose (eAG) 111 70-126 mg/dL B-Type Natriuretic Peptide 580 H 0-100 pg/mL Triglycerides Level 82 30-200 mg/dL Cholesterol Level 162 <200 mg/dL LDL Cholesterol 106 H 0-99 mg/dL HDL Cholesterol 50 35-85 mg/dL Thyroid Stimulating Hormone (TSH) 0.33 L 0.36-3.74 uIU/mL Urine Color YELLOW YELLOW Urine Appearance CLOUDY H CLEAR Urine pH 6.0 5.0-8.0 Urine Specific [place] 1.008 1.001-1.031 Urine Protein 30 H NEGATIVE mg/dL Urine Glucose (UA) 30 H NEGATIVE mg/dL Urine Ketones NEGATIVE NEGATIVE mg/dL Urine Occult Blood MODERATE H NEGATIVE Urine Nitrate NEGATIVE NEGATIVE Urine Bilirubin NEGATIVE NEGATIVE mg/dL Urine Urobilinogen 0.2 0.2-1.0 mg/dL Urine Leukocyte Esterase 500 H NEGATIVE Amadou/uL Urine RBC 2-5 H 0-1 /HPF Urine WBC 26-50 H 0-1 /HPF Urine Squamous Epithelial Cells MANY 0-2 /HPF Urine Non-Squamous Epithelial Cells 1 0-2 /HPF Urine Other Crystals (Auto) 8 None Seen /HPF Urine Bacteria MOD None Seen /HPF Urine Opiates Screen POSITIVE H NEGATIVE Urine Barbiturates Screen NEGATIVE NEGATIVE Urine Phencyclidine Screen NEGATIVE NEGATIVE Urine Amphetamines Screen NEGATIVE NEGATIVE Urine Benzodiazepines Screen NEGATIVE NEGATIVE Urine Cocaine Screen NEGATIVE NEGATIVE Urine Marijuana (THC) Screen POSITIVE H NEGATIVE White Cell Morphology Comment See comments Total Creatine Kinase 78 21-232 U/L DIAGNOSTICS / RADIOLOGY: PATIENT: SHILPI SNELL ACCT: [id number] LOC: [facility] U: [id number] AGE/SX: 70/F ROOM: [facility] RE06/13/[address] [facility] [address]: JUAN CARLOS GONZALEZ MD : 1955 BED: 1 DIS: STATUS: ADM IN TLOC: -- SPEC: [id number] SHAHLA: 06/12/25-8590 STATUS: RES REQ: [id number] RECD: 06/13/[address]: JUAN CARLOS GONZALEZ MD SOURCE: BLOOD ENTR: 06/13/25-[address]: TRINITY LIMA MD [facility]: BLOOD ENRIQUE SMITH MD,MELLY Randle MD SELF,REFERRAL ORDERED: AERO ID & SENS Procedure Result [place] Date-Time AEROBIC ID & SENSITIVITIES Preliminary 06/14/25-07 [facility] COLONY DESCRIPTION: DAY 1: GRAM NEGATIVE RODS IDENTIFICATION AND SENSITIVITY TO FOLLOW ANAEROBIC BOTTLE Test(s) performed by: [facility] [address] [place] [address] PATIENT: SHILPI SNELL ACCT: [id number] LOC: 2D U: [id number] AGE/SX: 70/F ROOM: 226 RE06/13/[address]: JUAN CARLOS GONZALEZ MD : 1955 BED: 1 DIS: STATUS: ADM IN TLOC: ------- ----- SPEC: [id number] SHAHLA: 06/13/25 STATUS: RES REQ: [id number] RECD: 06/13/[address] [facility] [address]: TEOFILO SHANKS MD SOURCE: [facility] ENTR: 06/13/25-[address]: MELLY [facility]WRIGHT [facility] SELF,REFERRAL ORDERED: AERO ID & SENS Procedure Result [place] Date-Time AEROBIC ID & SENSITIVITIES Preliminary 06/14/25-1047 [facility] COLONY DESCRIPTION: DAY 1: COLONY COUNT: >100,000 CFU/ML GRAM NEGATIVE RODS IDENTIFICATION AND SENSITIVITY TO FOLLOW Test(s) performed by: [facility] [address] [place] [address] ASSESSMENT: Gram-negative bacteremia. Urinary tract infection. Sepsis. Leukocytosis. Hypokalemia. Dilated common bile duct. Elevated liver enzymes. Obesity. Debility. PLAN: Continue doxycycline. Continue Zosyn IV. Continue GI prophylaxis. We will follow up on the final culture results. Continue pain management. Obtain MRCP. This case was reviewed and discussed with my supervising physician and the above assessment and plan was formulated and agreed upon. ATTESTATION BY PHYSICIAN I have seen and examined the patient. I reviewed the documentation, medical decision making, and treatment plan as noted by the mid-level provider above. I agree with the findings and plan of care. TRINITY LIMA MD, MIRTA L [facility] Jun 14, 2025 16:07
--- NOTE | 2025-06-14 16:24 | HMCSR ---
APPROVED REPORT EXAM: Two-dimensional and M-mode echocardiogram with Doppler and color Doppler. INDICATION ICD: h/o mvp, murmur+, severe sepsis 2D Dimensions RVDd4.6 cmLVEF(%)60.6 (>50%)LVED Vol(simp.)156.0 mL IVSd0.9 (0.7-1.1cm)FS(%)32 %LVES Vol(simp.)63.0 mL LVDd4.6 (3.8-5.6cm)LA (2D)4.0 (1.6-4.0cm)LVEF(%, simp.)59 % PWd1.2 (0.7-1.1cm)Ao Root(2D)3.2 (2.0-3.7cm)LA ESV INDEX (BP)66.31 mL/m2 LVDs3.1 (2.5-4.0cm)LVOT diam2.2 (1.8-2.4cm) IVC diam3.1 cm Deformation Strain Apical 4-22.1 % Apical 2-20.1 % Apical 3-20.1 % Global Strain-20.8 % M-Mode Dimensions EPSS0.8 cm LA (MM)4.5 (1.6-4.0cm) Ao Root(MM)3.5 (2.0-3.7cm) Aortic Valve AoV Vmax2.2 m/Judy Peak GR19.1 mmHgLVOT Vmax1.2 m/s AoV VTI0.5 mAo Mean GR10.1 mmHgLVOT VTI0.28 m MAGDALENA (VMAX)2.08 cm2AVA (VTI) 2.2 cm2 Mitral Valve MV E Vmax96.2 cm/sDECEL Abcq585 ms MV A Vmax86.9 cm/sP 1/2 T64 ms E/A ratio1.1MVA (PHT)3.4 cm2 TDI E/E' Ckntkl04.5E/E' Cmmhbgs55.5 Medial E' Peak V8.36 cm/sLateral E' Peak V7.68 cm/s Tricuspid Valve TR Vmax1.7 m/sRVSP10.9 mmHg TR Peak GR11.4 mmHg Left Ventricle The left ventricular size is normal. There is normal left ventricular wall thickness. LVEF is 55-60%. The left ventricular diastolic function is normal. Right Ventricle The right ventricle is mildly dilated. The right ventricular systolic function is normal. Atria The left atrium is severely dilated. The right atrium is severely dilated. Aortic Valve The aortic valve is normal in structure and function. No aortic regurgitation is present. There is no aortic valvular stenosis. Mitral Valve The mitral valve is normal in structure and function. There is no mitral valve regurgitation noted. T here is no mitral valve stenosis. Tricuspid Valve The tricuspid valve is normal in structure and function. There is trivial tricuspid valve regurgitati on noted. Pulmonic Valve The pulmonary valve is not well visualized. There is no pulmonic valvular regurgitation. Great Vessels The aortic root is normal in size. IVC is dilated and collapses >50% with inspiration. Pericardium No pericardial effusion. Other Information Quality : GoodRhythm : NSR Conclusion LVEF is 55-60%. The left ventricular diastolic function is normal. The right ventricle is mildly dilated. The left atrium is severely dilated.
[2025-06-14] MEDS: PoTASSium chloRIDE 20MEQ ER 20 MEQ ERTAB PO PRN (17:04)
[2025-06-15] VITALS (33 sets, daily range): BP systolic 138–169; BP diastolic 68–89; PULSE 65–88; RESP 15–20; TEMP 97.1–98.6; O2SAT 92–98
[2025-06-15] MEDS: 0.9%NACL 1000ML 1,000 ML IV SCH (00:02)
--- NOTE | 2025-06-15 02:31 | HMCIMG ---
EXAM: CT examination of the Brain without contrast. CLINICAL HISTORY: Trauma. TECHNIQUE: Thin collimated axial CT images of the brain were obtained with sagittal and coronal reformatted images also submitted. CT scan done according to ALARA (As Low as Reasonably Achievable). CONTRAST USED: None. COMPARISON: None provided. FINDINGS: Right temporo-occipital craniectomy. Mild generalized brain atrophy. No acute intracranial abnormality is present. Mild chronic small vessel ischemic disease. No acute cortical infarction, hemorrhage, mass or mass effect. No hydrocephalus or abnormal extra-axial fluid collections. The posterior fossa is unremarkable. The skull base and calvarium are intact. Hyperostosis frontalis interna. Bilateral post FESS status with mild bilateral ethmoid and maxillary sinusitis. Bilateral mastoid air cells are clear. IMPRESSION: 1. Right temporo-occipital craniectomy defect. 2. Mild generalized brain atrophy and mild chronic small vessel ischemic disease. 3. Mild bilateral ethmoid and maxillary sinusitis, post-FESS status. 4. No acute intracranial hemorrhage, mass, mass effect, or hydrocephalus. /[place]
[2025-06-15 03:58] LABS: IMMATURE GRANULOCYTE ABSOLUTE 0.13 K/uL (0-1); NUCLEATED RED BLOOD CELLS 0.0 % (0.0-0.19); PLATELET COUNT (AUTO) 106 K/uL (130-400); RED BLOOD CELL COUNT(AUTO) 3.40 MIL/uL (4.00-5.50); RED CELL DISTRIBUTION WIDTH 16.3 % (11.0-15.5); WHITE BLOOD COUNT (AUTO) 10.6 K/uL (4.8-10.8)
[2025-06-15 04:17] LABS: ASPARTATE AMINOTRANSFERASE 54.0 U/L (10-37); CREATININE 0.5 mg/dL (0.5-1.0); GLOMERULAR FILTR. RATE CALC 100.0 mL/min (>90); GLUCOSE,RANDOM 91.0 mg/dL (70-105); SODIUM SERUM 144.0 mmol/L (136-145); TOTAL PROTEIN, SERUM 5.5 g/dL (6.0-8.3); UREA NITROGEN, BLOOD 7.0 mg/dL (7-18)
--- NOTE | 2025-06-15 08:28 | NUR ---
DCP: HOME Sw met with pt's Steffen Tsang [phone] while p was done for test. reports prior to admission, pt was independent of self care, and ambulation. Pt has a walker and uses no in home care services, HH or HD. PCP is Vincent Alves and [facility]. will take pt home at me Addendum: 06/15/25 at 0831 by AGNIESZKA HERCULES Amended: Links added.
[2025-06-15] MEDS: [UNRECOGNIZED DRUG - OTHER] PO SCH (08:29)
--- NOTE | 2025-06-15 11:19 | NUR ---
ASKED PATIENT TO BRING HOME MEDICATIONS. SHE STATED SHE WILL LET HER KNOW TO BRING THEM.
[2025-06-15] MEDS ORDERED: LIDOCAINE PF 100MG/5ML (2%) SYRINGE 5ML ONE (12:13)
--- NOTE | 2025-06-15 17:02 | PN ---
[facility] PROGRESS NOTE Date Patient Seen: Jun 15, 2025 Time of Visit: 1241 Supervising Physician: Dr. Concepcion Inpatient Consults: BIS ASSESSMENT: Severe sepsis POA Acute urinary tract infection POA Acute gastroenteritis POA Status post fall at home POA Syncope POA Hypokalemia POA Acute kidney injury POA Elevated troponin in the setting of sepsis POA Chronic back pain POA Chronic anemia POA Headache POA Hypertension POA Hyperglycemia POA Mild Chronic obstructive pulmonary disease POA Recent COVID infection POA Pulmonary fibrosis POA Acute on chronic hypoxemic respiratory failure on home O2 POA INTERVAL HISTORY: 06/15 patient was seen and examined by bedside no family present. Patient at time of visit has no specific complaints. Patient is denies any chest pain or shortness of breadth. Currently on2 L nasal cannula appears to be tolerating well. Patient's hemoglobin has remained stable today 9.0. Patient is scheduled for EUS/EGD today we will continue to follow recommendations from GI. Patient to continue with current IV antibiotics. From a pulmonary standpoint patient has remained stable therefore pulmonology to sign off feel free to reconsult with any change in condition thank you for allowing us to participate in the care of this patient Plan summary Pulmonology to sign off feel free to reconsult with any change in condition thank you for allowing us to participate in the care of this patient Continue with current IV antibiotics Continue to follow recommendations from GI REVIEW OF SYSTEMS: 12 point ROS reviewed with patient. Pertinent positives mentioned above. Otherwise negative. PHYSICAL EXAM: GENERAL: alert, weak, awake oriented x 3 HEENT: EOMI, Sclera non icteric, moist mucosa NECK: Supple, no JVD, trachea midline LUNGS: Clear breath sounds bilaterally. No wheezes HEART: Regular rate and rhythm. Normal S1 and S2, without murmurs ABD: Abdomen soft, nontender. Bowel sounds present EXT: No clubbing cyanosis or edema NEURO: Alert and oriented to person, follows commands Vital Signs (last 8hr) Date Time Temp Pulse Resp B/P (MAP) Pulse Ox O2 Delivery O2 Flow Rate FiO2 06/15/25 14:56 67 18 06/15/25 14:55 66 18 N/Cannula Low lpm 3.0 32 06/15/25 13:15 97.2 76 17 154/76 92 Nasal Cannula 3.0 28 06/15/25 13:15 98.4 76 154/80 92 Nasal Cannula 3.0 06/15/25 13:10 97.2 75 18 160/74 92 Nasal Cannula 3.0 06/15/25 13:05 97.2 79 18 155/75 93 Nasal Cannula 3.0 06/15/25 13:00 97.2 75 18 157/76 94 Nasal Cannula 3.0 06/15/25 12:55 97.2 74 18 160/80 94 Nasal Cannula 3.0 06/15/25 12:50 97.2 75 18 157/73 93 Nasal Cannula 3.0 06/15/25 12:45 97.2 73 18 156/75 95 Nasal Cannula 3.0 06/15/25 12:40 97.2 75 15 146/72 95 Nasal Cannula 3.0 06/15/25 12:35 97.2 73 15 146/72 95 Nasal Cannula 3.0 06/15/25 12:30 97.2 73 15 148/69 95 Nasal Cannula 3.0 06/15/25 12:13 Mask 10.0 06/15/25 12:13 Mask 06/15/25 10:47 74 18 06/15/25 10:45 74 18 N/Cannula Low lpm 2.0 06/15/25 09:40 95 Nasal Cannula* 3 32 LABS: Hematology Labs: Test 06/15/25 03:47 06/14/25 03:15 Range/Units White Blood Count 10.6 4.8-10.8 K/uL Red Blood Count 3.40 L 4.00-5.50 MIL/uL Hemoglobin 9.0 L 12.0-16.0 g/dL Hematocrit 29.2 L 36-48 % Mean Corpuscular Volume 85.9 79-99 fL Mean Corpuscular Hemoglobin 26.5 L 27.0-33.0 pg Mean Corpuscular Hemoglobin Concent 30.8 L 32.0-36.0 g/dL Red Cell Distribution Width 16.3 H 11.0-15.5 % Platelet Count 106 L 130-400 K/uL Mean Platelet Volume 10.6 H 7.5-10.5 fL Immature Granulocyte % (Auto) 1.2 H 0-1 % Neutrophils (%) (Auto) 74.7 40.0-77.0 % Lymphocytes (%) (Auto) 17.6 L 21.0-51.0 % Monocytes (%) (Auto) 5.1 3.0-13.0 % Eosinophils (%) (Auto) 1.1 0.0-8.0 % Basophils (%) (Auto) 0.3 0.0-5.0 % Neutrophils # (Auto) 7.9 H 1.8-7.7 K/uL Lymphocytes # (Auto) 1.9 1.0-4.8 K/uL Monocytes # (Auto) 0.5 0.1-1.0 K/uL Eosinophils # (Auto) 0.12 0.00-0.70 K/uL Basophils # (Auto) 0.03 0.00-0.20 K/uL Absolute Immature Granulocyte (auto 0.13 0-1 K/uL Nucleated Red Blood Cells 0.0 0.0-0.19 % Red Blood Cell Morphology See comments Reticulocyte Count (auto) 1.22417 0.42-2.23 % Immature Reticulocyte Fraction 16.10 H 0.18-0.48 % Chemistry Labs: Test 06/15/25 03:47 06/14/25 03:15 Range/Units Sodium Level 144 136-145 mmol/L Potassium Level 3.3 L 3.5-5.1 mmol/L Chloride Level 108 101-111 mmol/L Carbon Dioxide Level 27 21-32 mmol/L Blood Urea Nitrogen 7 7-18 mg/dL Creatinine 0.5 0.5-1.0 mg/dL Glomerular Filtration Rate Calc 100 >90 mL/min Random Glucose 91 70-105 mg/dL Lactic Acid Level 0.8 0.8-2.5 mmol/L Total Calcium 7.5 L 8.5-10.1 mg/dL Total Bilirubin 2.1 H 0.2-1.0 mg/dL Aspartate Amino Transf (AST/SGOT) 54 H 10-37 U/L Alanine Aminotransferase (ALT/SGPT) 103 H 12-78 U/L Alkaline Phosphatase 250 H 50-136 U/L Total Protein 5.5 L 6.0-8.3 g/dL Albumin 2.4 L 3.5-5.0 g/dL Procalcitonin 64.76 H 0.05-0.5 ng/mL Magnesium Level 2.30 1.80-2.40 mg/dL Iron Level 16 L 50-170 mcg/dL Total Iron Binding Capacity 217 L 250-450 mcg/dL Percent Iron Saturation 7.3 L 22-44 % Ferritin 180 H 15-150 ng/mL Vitamin B12 Level 345 193-986 pg/mL DIAGNOSTICS / RADIOLOGY RESULTS: na PLAN NEURO: Minimize central acting medications as possible. Maintain fall precautions, adequate lighting during the day PULMONARY: Supplemental 02 as needed. Maintain aspiration precautions at all times CARDIOVASCULAR: Follow hemodynamics. Vital signs per facility protocol GI & NUTRITION: Continue with nutritional support. Continue stool softeners and laxatives as needed. KIDNEYS & ELECTROLYTES: Strict monitoring of intake, output and overall fluid balance. Avoid nephrotoxic medications to the extent possible. Medications to be dosed according to renal function. Monitor electrolytes and replace as needed ENDOCRINE: Maintain blood glucose between 100-180 at all times. Hypoglycemia protocol in place INFECTIOUS DISEASE: Trend temperature, WBC and procalcitonin level Follow cultures, deescalate antibiotics as soon as possible. Panculture if new onset fever ONCOLOGY/HEMATOLOGY/COAGULATION: Monitor for s/s of bleeding Monitor hemoglobin, coagulation studies as needed SKIN: Pressure ulcer prevention per facility protocol Specialty mattress ORTHO/REHAB: Continue PT/OT Prophylaxis: Continue GI and DVT prophylaxis Code Status: Full Resuscitation Disposition: Per primary team Other: Case discussed with supervising physician plan of care agreed upon CHINEDU TO [employer] E[employer]IC ATT[employer]ER Jun 15, 2025 17:02
--- NOTE | 2025-06-15 17:02 | PN ---
[facility] PROGRESS NOTE Date of Service: Jun 15, 2025 Time of Service: 16:34 SUBJECTIVE: This is a 70-year-old female with past medical history of chronic back pain, mitral valve prolapse, hypertension, Chronic obstructive pulmonary disease ,pulmonary fibrosis , h/o chronic cholecystitis with cholelithiasis, status post ERCP with removal of common bile duct stones (2014) who was brought by EMS to the ED with complaints of generalized body weakness, nausea, vomiting ,diarrhea and fall . The patient was found by her on the restroom floor following a fall, accordingly landing on her buttocks. She initially denied hitting her head or losing consciousness however upon further questioning she acknowledged having fainted but was unsure of exact sequence of events. She recalls regaining awareness while enroute to hospital in the ambulance. she complained of headache which resolved. Of note, she had a recent COVID-19 infection approximately 2 weeks back. Patient also uses supplemental oxygen at home via nasal cannula at 3 liter/minute. Vital signs upon ER arrival temperature 103.5, heart rate 122, blood pressure 164/95, saturation 98% on 3 L nasal cannula.Patient reports she has a small lesion in her head that has been there due to psoriasis she said. At the time of presentation she was alert, coherent , follows commands and moving all extremities. Patient denies chest pain, palpitation, shortness of breaths and dizziness. Latest vital signs temperature a 100.2, heart rate 86, respiration 23, blood pressure 115/54, saturation 95% on 3 L. patient also reports she is taking THC gummies for her chronic back pain. Labs: WBC 15 with negative left shift of neutrophils 93, hemoglobin 11, hematocrit 38, platelet count 161. Potassium 2.1, creatinine 1.1, GFR 54 gl ucose 177, lactic acid 4.8, troponin 442. Urinalysis consistent with urinary tract infection. ECG result revealed sinus tachycardia heart rate 110 with probable left ventricular hypertrophy with secondary repolarization abnormalities. Chest x-ray result revealed mild bibasilar airspace disease, likely atelectasis or infiltrates. Mild Chronic obstructive pulmonary disease. While in the ER patient received IV fluid resuscitation of NS 30 mL/kilogram over 3 hours, Tylenol 1000 mg p.o., potassium replacement, albuterol neb treatment, Rocephin 2 g IV and azithromycin IV. We will admit patient for further medical management. 06/13/2025: Patient is seen and evaluated at the bedside. She has severe sepsis secondary to urinary tract infection. Labs show improving lactic acid, improving WBCs, low magnesium, low platelets, abnormal liver function test, elevated troponin peaked at 680 . Her bilirubin is elevated at 7.3 And she report that she has been experiencing coffee colored watery stools for past2 days. She is also found to have a systolic murmur. ID, gastroenterology, pulmonology, Cardiology consults requested. As per the patient she has hand tremors now and complaints of back pain. We resumed her home [place] and Ambien. She is started on IV Zosyn and IV doxycycline. We will also request stool culture, C diff, echo, CT abdomen and pelvis. She is in no acute distress. 06/14/2025: Patient is seen and evaluated at the bedside. She has severe sepsis secondary to urinary tract infection. Labs show improving lactic acid, WBC, abnormal liver functions, low platelets, low potassium, normal magnesium, iron - 16, TIBC- 217, %sat-7.3, ferritin-180. So we replaced potassium and started iron sucrose. She also has a history of autoimmune disease for which she is My cophenolate Mofetil. ID saw the patient and they recommended to continue zosyn, pain management, antiemetic, monitor electrolytes and correct as needed, Continue DVT prophylaxis. Surgery saw the patient and they recommend MRI abdomen and MRCP recommended w/wo contrast, EGD with EUS in am. MRCP not feasible for this patient because of pain pump and prothesis. Urine culture showed gram negative rods. She is in no acute distress. As there is a history of fall, we ordered a CT scan of head. CT Abdomen and pelvis showed status post cholecystectomy, Dilated common bile duct measuring 1.2 cm. Mild central and peripheral dilatation of the biliary radicles,Mild hepatosplenomegaly. Simple hepatic cyst,Bosniak classification 1 right renal cyst,Small hiatus hernia, Small umbilical hernia containing a loop of small bowel. As there is history of MVP we ordered a echocardiogram and it showed LVEF is 55-60%, The left ventricular diastolic function is normal,The right ventricle is mildly dilated, The left atrium is severely dilated. 06/15/2025: Patient is seen and evaluated at the bedside. She has severe sepsis secondary to urinary tract infection. Labs show improving lactic acid, WBC, liver functions, potassium, low platelets, procalcitonin is 64.76, RBC is 3.4, Hb is 9, HCT is 29.2, plt is 106. Her neutrophil count is going down. EGD with EUS is done and there are stones in the common bile duct. ERCP is recommended and it will be done tomorrow. REVIEW OF SYSTEMS CONSTITUTIONAL: No fever. Denies night sweats. No unintentional weight loss r eported. NEUROLOGICAL: Denies headache, amaurosis fugax, sensory deficit, vertigo/spinning sensation, gait abnormalities, or tremors. ENT: No hearing loss, otalgia, otorrhea, rhinitis, rhinorrhea, hoarseness, or sore throat. CARDIOVASCULAR: Denies any exertional angina, dyspnea on exertion, orthopnea, paroxysmal nocturnal dyspnea, palpitations, life-threatening arrhythmias, claudication. PULMONARY: Denies any shortness of breath, cough, phlegm/sputum, hemoptysis, pleuritic chest pain. SLEEP: Denies morning headaches, daytime somnolence or napping. Denies difficulty falling asleep, staying asleep, waking from sleep. Denies knowledge of snoring. GASTROINTESTINAL: No nausea, vomiting, abdominal pain. Denies any type of dysphagia to either liquids or solids. Denies pyrosis, early satiety, abdominal pain, constipation, or changes in stool consistency or caliber. Denies coffee-ground emesis, hematemesis, hematochezia, or melanotic stools. GENITOURINARY: Denies frequency, urgency, nocturia, hematuria or incontinence (Storage/Irritative symptoms.) Low urinary stream, straining to void, urinary intermittency or hesitancy, splitting of the voiding stream, terminal dribbling. ENDOCRINOLOGIC: Denies polyuria, polydipsia, polyphagia or heat/cold intolerances. Back pain + PHYSICAL EXAM GENERAL APPEARANCE: Morbidly obese female The patient is awake, alert, and oriented, mild distress NEUROLOGICAL: Cranial nerves II-XII grossly intact. Motor is 5/5 in bilateral upper and lower extremities proximal to distal. No sensory deficits. HEENT: Face is symmetric. Pupils are equal and reactive. Extraocular movements are intact. NECK: Supple. No JVD. No thyromegaly. No submental, submandibular, pre- /postauricular, occipital or supraclavicular lymphadenopathy. CHEST: Normal chest expansion. No Telemetry. LUNGS: Absence of any rales, rhonchi or any wheezing. CARDIOVASCULAR: Regular. S1 and S2 normal. Systolic murmur appreciable ABDOMEN: Soft, nontender, and nondistended. There is no rebound, voluntary guarding, or rigidity. : Deferred. No Boateng. EXTREMITIES: Non-edematous and not cyanotic. No clubbing. Good capillary refill. SKIN: Ecchymotic patches seen Vital Signs (last 8hr) Date Time Temp Pulse Resp B/P (MAP) Pulse Ox O2 Delivery O2 Flow Rate FiO2 06/15/25 14:56 67 18 06/15/25 14:55 66 18 N/Cannula Low lpm 3.0 32 06/15/25 13:15 97.2 76 17 154/76 92 Nasal Cannula 3.0 06/15/25 13:15 98.4 76 154/80 92 Nasal Cannula 3.0 06/15/25 13:10 97.2 75 18 160/74 92 Nasal Cannula 3.0 06/15/25 13:05 97.2 79 18 155/75 93 Nasal Cannula 3.0 06/15/25 13:00 97.2 75 18 157/76 94 Nasal Cannula 3.0 06/15/25 12:55 97.2 74 18 160/80 94 Nasal Cannula 3.0 06/15/25 12:50 97.2 75 18 157/73 93 Nasal Cannula 3.0 06/15/25 12:45 97.2 73 18 156/75 95 Nasal Cannula 3.0 06/15/25 12:40 97.2 75 15 146/72 95 Nasal Cannula 3.0 06/15/25 12:35 97.2 73 15 146/72 95 Nasal Cannula 3.0 06/15/25 12:30 97.2 73 15 148/69 95 Nasal Cannula 3.0 06/15/25 12:13 Mask 10.0 06/15/25 12:13 Mask 06/15/25 10:47 74 18 06/15/25 10:45 74 18 N/Cannula Low lpm 2.0 06/15/25 09:40 95 Nasal Cannula* 3 32 LABS: Laboratory: Test 06/15/25 03:47 06/14/25 03:15 Range/Units White Blood Count 10.6 4.8-10.8 K/uL Red Blood Count 3.40 L 4.00-5.50 MIL/uL Hemoglobin 9.0 L 12.0-16.0 g/dL Hematocrit 29.2 L 36-48 % Mean Corpuscular Volume 85.9 79-99 fL Mean Corpuscular Hemoglobin 26.5 L 27.0-33.0 pg Mean Corpuscular Hemoglobin Concent 30.8 L 32.0-36.0 g/dL Red Cell Distribution Width 16.3 H 11.0-15.5 % Platelet Count 106 L 130-400 K/uL Mean Platelet Volume 10.6 H 7.5-10.5 fL Immature Granulocyte % (Auto) 1.2 H 0-1 % Neutrophils (%) (Auto) 74.7 40.0-77.0 % Lymphocytes (%) (Auto) 17.6 L 21.0-51.0 % Monocytes (%) (Auto) 5.1 3.0-13.0 % Eosinophils (%) (Auto) 1.1 0.0-8.0 % Basophils (%) (Auto) 0.3 0.0-5.0 % Neutrophils # (Auto) 7.9 H 1.8-7.7 K/uL Lymphocytes # (Auto) 1.9 1.0-4.8 K/uL Monocytes # (Auto) 0.5 0.1-1.0 K/uL Eosinophils # (Auto) 0.12 0.00-0.70 K/uL Basophils # (Auto) 0.03 0.00-0.20 K/uL Absolute Immature Granulocyte (auto 0.13 0-1 K/uL Nucleated Red Blood Cells 0.0 0.0-0.19 % Red Blood Cell Morphology See comments Sodium Level 144 136-145 mmol/L Potassium Level 3.3 L 3.5-5.1 mmol/L Chloride Level 108 101-111 mmol/L Carbon Dioxide Level 27 21-32 mmol/L Blood Urea Nitrogen 7 7-18 mg/dL Creatinine 0.5 0.5-1.0 mg/dL Glomerular Filtration Rate Calc 100 >90 mL/min Random Glucose 91 70-105 mg/dL Lactic Acid Level 0.8 0.8-2.5 mmol/L Total Calcium 7.5 L 8.5-10.1 mg/dL Total Bilirubin 2.1 H 0.2-1.0 mg/dL Aspartate Amino Transf (AST/SGOT) 54 H 10-37 U/L Alanine Aminotransferase (ALT/SGPT) 103 H 12-78 U/L Alkaline Phosphatase 250 H 50-136 U/L Total Protein 5.5 L 6.0-8.3 g/dL Albumin 2.4 L 3.5-5.0 g/dL Procalcitonin 64.76 H 0.05-0.5 ng/mL Reticulocyte Count (auto) 1.81639 0.42-2.23 % Immature Reticulocyte Fraction 16.10 H 0.18-0.48 % Magnesium Level 2.30 1.80-2.40 mg/dL Iron Level 16 L 50-170 mcg/dL Total Iron Binding Capacity 217 L 250-450 mcg/dL Percent Iron Saturation 7.3 L 22-44 % Ferritin 180 H 15-150 ng/mL Vitamin B12 Level 345 193-986 pg/mL Current Medications Medications (Trade) Dose Ordered Sig/Abby Route PRN Reason Start Time Stop Time Status Last Admin Dose Admin Acetaminophen (TYLenol 325MG TAB) 650 mg Q4H PRN PO MILD PAIN (1-3) 06/13/25 03:00 07/13/25 02:59 Acetaminophen (TYLenol 325MG TAB) 650 mg Q6H PRN PO TEMPERATURE GREATER THAN 101.5 06/13/25 03:00 07/13/25 02:59 06/13/25 11:37 650 MG Acetaminophen/ Hydrocodone Bitart (NORco 10) 1 tab Q4H PRN PO MODERATE PAIN (4-6) 06/13/25 14:30 06/13/25 14:24 DC Acetaminophen/ Hydrocodone Bitart (NORco 10) 1 tab Q6H PRN PO MODERATE PAIN (4-6) 06/13/25 14:30 06/20/25 14:29 06/15/25 03:44 1 TAB Albuterol (DUOneb) 1 udvial [id number] IH 06/13/25 06:00 07/13/25 05:59 06/15/25 14:56 1 UDVIAL Amlodipine Besylate (NorvASC 5MG TAB) 5 mg DAILY PO 06/13/25 14:30 07/13/25 14:29 06/15/25 08:28 5 MG Azithromycin 250 ml @ 250 mls/hr Q24H IVPB 06/13/25 01:00 06/13/25 08:41 DC 06/13/25 02:06 250 MLS/HR Ceftriaxone Sodium (ROCEphine 1G INJ) 1 gm Q12H IV 06/14/25 01:00 06/13/25 08:41 DC Doxycycline Hyclate 250 ml @ 125 mls/hr Q12H IV 06/13/25 14:30 06/13/25 17:49 DC Doxycycline Hyclate 250 ml @ 125 mls/hr Q12H IV 06/13/25 20:00 06/23/25 19:59 06/15/25 08:28 125 MLS/HR Home Med (Home Medication) 10 each DAILY14 PO 06/14/25 14:00 06/14/25 10:33 DC Home Med (Home Medication) Thc 30MG Gummy: DOSE= 15 MG DAILY PO 06/15/25 09:00 07/15/25 08:59 Home Med (Home Medication) Thc Gummy 10MG DAILY14 PO 06/14/25 14:00 07/14/25 13:59 06/14/25 13:40 1 EACH Magnesium Sulfate 50 ml @ 0 mls/hr PROTOCOL PRN IV OTHER [SEE ORDER COMMENTS] 06/13/25 03:00 07/13/25 02:59 06/13/25 10:08 25 MLS/HR Magnesium Sulfate 50 ml @ 0 mls/hr PROTOCOL PRN IV hypomagnesemia 06/13/25 09:00 06/13/25 08:45 DC Metronidazole/ Sodium Chloride 100 ml @ 100 mls/hr Q8H IV 06/13/25 03:00 06/13/25 08:41 DC 06/13/25 04:01 100 MLS/HR Nitroglycerin (Nitrostat) 0.4 mg PROTOCOL PRN SL CHEST PAIN 06/13/25 03:00 07/13/25 02:59 Nystatin (NystOP 15 GM POWDER) apply to abdominal fold ... TID TP 06/14/25 21:00 07/14/25 20:59 06/15/25 14:55 1 APPL Ondansetron HCl (zoFRAN 4MG INJ) 4 mg Q6H PRN IV NAUSEA/VOMITING 06/13/25 03:00 07/13/25 02:59 Pantoprazole Sodium (PROTonix 40MG INJ) 40 mg DAILY IVP 06/13/25 09:00 07/13/25 08:59 06/15/25 08:28 40 MG Piperacillin Sod/ Tazobactam Sod (Zosyn 3.375gm+NS 50ml) 3.375 gm Q8H IV 06/13/25 09:00 06/23/25 08:59 06/15/25 08:28 3.375 GM Potassium Chloride 10 meq/ Sodium Chloride 50 ml @ 50 mls/hr PROTOCOL IV 06/13/25 00:30 06/13/25 00:32 DC Potassium Chloride 100 ml @ 100 mls/hr AD PRN IV POTASSIUM PROTOCOL 06/13/25 03:00 07/13/25 02:59 Potassium Chloride (K-Dur/Klor-Con 20meq) 20 meq AD PRN PO POTASSIUM PROTOCOL 06/13/25 03:00 07/13/25 02:59 06/15/25 10:41 20 MEQ Potassium Chloride (KCl 10% Elixir 20meq/15ml) 20 meq AD PRN PO POTASSIUM PROTOCOL 06/13/25 03:00 07/13/25 02:59 06/14/25 05:23 20 MEQ Sodium Chloride 1,000 ml @ 100 mls/hr Q10H IV 06/13/25 03:00 06/14/25 23:42 DC 06/14/25 13:41 100 MLS/HR Sodium Chloride 1,000 ml @ 100 mls/hr Q10H IV 06/15/25 00:00 07/15/25 00:00 06/15/25 10:41 100 MLS/HR Zolpidem Tartrate (AmbIEN) 10 mg HS PRN PO INSOMNIA 06/13/25 14:30 07/13/25 14:29 06/14/25 23:05 10 MG DIAGNOSTICS / RADIOLOGY: [ ] ASSESSMENT: Severe sepsis POA Acute urinary tract infection POA Acute gastroenteritis POA Syncope POA ? in the setting of severe sepsis Status post fall at home POA Thrombocytopenia ,lactic acidosis - sepsis related liver dysfunction Biliary duct obstruction, POA Hypokalemia POA Acute kidney injury POA Elevated troponin, type 2 CO in the setting of sepsis POA Euthyroid sick syndrome in the setting of sepsis Pulmonary fibrosis POA Acute on chronic hypoxemic respiratory failure on home O2 POA Iron deficiency anemia Thoracic Ascending Aortic aneurysm,POA Chronic back pain POA Chronic anemia POA Headache POA Hypertension POA Hyperglycemia POA Chronic obstructive pulmonary disease POA Recent COVID infection POA PLAN: patient admitted in [facility] Severe sepsis POA: source : Acute urinary tract infection POA Syncope POA ? in the setting of severe sepsis Status post fall at home POA lactic acidosis , - sepsis related liver dysfunction Blood culture growing gram negative rods - pending final report Repeat blood culture requested started on IV Zosyn day 3 and IV Doxycycline day 3. Procalcitonin elevated at 162.[address] Abdomen , GI , cardiology and pulmonary consults Biliary obstruction, POA Gastroenterology saw the patient and advised EGD Acute gastroenteritis POA Pending stool culture, c diff, stool occult blood test GI saw the patient and they recommended MRCP but she is not NPO for MRCP they put it on hold. Also GI recommended EGD with EUS in am. EGD with EUS was done and it showed stones in the common bile duct. ERCP is to be done tomorrow. Hypokalemia POA continue replacing potassium Euthyroid sick syndrome in the setting of sepsis TSH 0.33, T3 1.34, T4 1.15 repeat thyroid levels in a month as outpatient Pulmonary fibrosis POA Acute on chronic hypoxemic respiratory failure on home O2 POA Patient on NC oxygen supplementation Iron deficiency anemia Started on IV iron sucrose because her iron is 16, transferrin saturation is 7.3. Continue clear liquid diet. We will start on Protonix 40 mg IV daily for GI prophylaxis We will replace electrolytes as needed per protocol We will add prn medication for fever,pain,cough , nausea and vomiting We will check fecal occult blood x1, stool GI panel ova and parasite We will request case management service Neuro check q.4 hours per nursing Fall precautions DVT prophylaxis with SCD. ATTESTATION BY PHYSICIAN I have seen and examined the patient. I reviewed the documentation, medical decision making, and treatment plan as noted by the resident provider above. I agree with the findings and plan of care. Arslan Bah MD, AKSHAY MD Jun 15, 2025 17:02
--- NOTE | 2025-06-15 19:03 | PN ---
[facility] CARDIOLOGY PROGRESS NOTE Date Patient Seen: Jun 15, 2025 Time of Visit: 18:50 Problem List: Severe sepsis UTI Elevated troponin, type II ME Interval History: s/p EGD, pending ERCP tomorrow No acute complaint No acute concerns per bedside RN Physical Examination: GENERAL: [No acute distress.] HEAD: [Normal with no signs of head trauma.] LUNGS: [Clear breath sounds bilaterally. on room air. no distress. .] HEART: [Normal rate and rhythm. .] VASC: [Peripheral pulses +2 bilaterally.] EXT: [No cyanosis or edema.] SKIN: [No rashes or lesions noted.] NEURO: [Awake, alert, and oriented x3. ] Laboratory: [ ] Hematology Labs: Test 06/15/25 03:47 06/14/25 03:15 Range/Units White Blood Count 10.6 4.8-10.8 K/uL Red Blood Count 3.40 L 4.00-5.50 MIL/uL Hemoglobin 9.0 L 12.0-16.0 g/dL Hematocrit 29.2 L 36-48 % Mean Corpuscular Volume 85.9 79-99 fL Mean Corpuscular Hemoglobin 26.5 L 27.0-33.0 pg Mean Corpuscular Hemoglobin Concent 30.8 L 32.0-36.0 g/dL Red Cell Distribution Width 16.3 H 11.0-15.5 % Platelet Count 106 L 130-400 K/uL Mean Platelet Volume 10.6 H 7.5-10.5 fL Immature Granulocyte % (Auto) 1.2 H 0-1 % Neutrophils (%) (Auto) 74.7 40.0-77.0 % Lymphocytes (%) (Auto) 17.6 L 21.0-51.0 % Monocytes (%) (Auto) 5.1 3.0-13.0 % Eosinophils (%) (Auto) 1.1 0.0-8.0 % Basophils (%) (Auto) 0.3 0.0-5.0 % Neutrophils # (Auto) 7.9 H 1.8-7.7 K/uL Lymphocytes # (Auto) 1.9 1.0-4.8 K/uL Monocytes # (Auto) 0.5 0.1-1.0 K/uL Eosinophils # (Auto) 0.12 0.00-0.70 K/uL Basophils # (Auto) 0.03 0.00-0.20 K/uL Absolute Immature Granulocyte (auto 0.13 0-1 K/uL Nucleated Red Blood Cells 0.0 0.0-0.19 % Red Blood Cell Morphology See comments Reticulocyte Count (auto) 1.12659 0.42-2.23 % Immature Reticulocyte Fraction 16.10 H 0.18-0.48 % Chemistry Labs: Test 06/15/25 03:47 06/14/25 03:15 Range/Units Sodium Level 144 136-145 mmol/L Potassium Level 3.3 L 3.5-5.1 mmol/L Chloride Level 108 101-111 mmol/L Carbon Dioxide Level 27 21-32 mmol/L Blood Urea Nitrogen 7 7-18 mg/dL Creatinine 0.5 0.5-1.0 mg/dL Glomerular Filtration Rate Calc 100 >90 mL/min Random Glucose 91 70-105 mg/dL Lactic Acid Level 0.8 0.8-2.5 mmol/L Total Calcium 7.5 L 8.5-10.1 mg/dL Total Bilirubin 2.1 H 0.2-1.0 mg/dL Aspartate Amino Transf (AST/SGOT) 54 H 10-37 U/L Alanine Aminotransferase (ALT/SGPT) 103 H 12-78 U/L Alkaline Phosphatase 250 H 50-136 U/L Total Protein 5.5 L 6.0-8.3 g/dL Albumin 2.4 L 3.5-5.0 g/dL Procalcitonin 64.76 H 0.05-0.5 ng/mL Magnesium Level 2.30 1.80-2.40 mg/dL Iron Level 16 L 50-170 mcg/dL Total Iron Binding Capacity 217 L 250-450 mcg/dL Percent Iron Saturation 7.3 L 22-44 % Ferritin 180 H 15-150 ng/mL Vitamin B12 Level 345 193-986 pg/mL Impression and Plan: Severe sepsis UTI Hypokalemia likely precipitated by N/V Blood cultures drawn on 06/12/2025 demonstrated 2/2 sets with gram-negative rods Syncope NSTEMI, Type II ME (Troponin peak 680) CT of the chest on 06/14/2025 with Asc TTA measuring 4.5 cm. 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 Manuel Gambino, on immunosuppressant CellCept Occipital neuralgia, migraines, fibromyalgia, chronic back pain, chronic pain syndrome COPD, pulmonary fibrosis, ARDS on chronic home O2 at 2-3 L via nasal cannula secondary to COVID History of left lower extremity DVT History of skin cancer with resection Use of THC Allergy to Metoprolol Echocardiogram Conclusion LVEF is 55-60%. The left ventricular diastolic function is normal. The right ventricle is mildly dilated. The left atrium is severely dilated. DICTATED BY: INNA WINKLER DO DATE: 06/14/251424 Pending ERCP, hold ASA No statin due to elevated transaminases No beta amparo due to history of metoprolol allergy Elevated troponin likely cash posting representative of type II ME. Can evaluate with non invasive pharmacologic stress testing inpatient vs outpatient setting Recommend repeat CTA chest in 6 months for reassessment of AscAo aneurysm Blood pressure not adequately controlled .Resume home [place]-i lisinopril INNA WINKLER DO Jun 15, 2025 19:03
[2025-06-15] MEDS: LISINOPRIL 5 MG TABLET PO SCH (20:05)
--- NOTE | 2025-06-15 21:25 | PN ---
INFECTIOUS DISEASE PROGRESS NOTE Date of Service: Jun 15, 2025 SUBJECTIVE: This is a 70-year-old female patient who was seen at bedside in room 226. The MRCP was unable to be done due to patient has an implanted pain pump. Patient had an EGD with EUS today and will be going for an ERCP tomorrow. The final blood cultures results and the final urine culture results came back positive Klebsiella aerogenes. Patient remains afebrile, temperature is 98.2 and the WBC has trended down to 10.6. Will continue on doxycycline and Zosyn. PHYSICAL EXAM EYES: Anicteric. Pupils equal and reactive. HENT: No oral thrush seen, moist Oral mucosa. NECK: Supple, no JVD or thyromegaly. LUNGS: Good air entry. No rales, no rhonchi. CARDIOVASCULAR: S1, S2 regular. No murmur heard. ABDOMEN: Soft, non tender, bowel sounds present, no organomegaly. CENTRAL NERVOUS SYSTEM: Awake, alert, oriented x 3. SKIN: No rashes, no swelling. LYMPHATICS: No peripheral lymphadenopathy. MUSCULOSKELETAL: No joint swelling, erythema or tenderness. EXTREMITIES: No cyanosis or clubbing. BACK: No deformity, no pressure ulcer. GENITOURINARY: No dysuria or hematuria. Vital Sign (Last 12 Hours) 06/15/25 06/15/25 06/15/25 06/15/25 09:40 10:45 10:47 12:13 Pulse 74 74 Resp 18 18 Pulse Ox 95 O2 Delivery Nasal Cannula* N/Cannula Low lpm Mask O2 Flow Rate 3 2.0 FiO2 32 28 06/15/25 06/15/25 06/15/25 06/15/25 12:13 12:30 12:35 12:40 Temp 97.2 97.2 97.2 Pulse 73 73 75 Resp B/P (MAP) 148/69 146/72 146/72 Pulse Ox 95 95 95 O2 Delivery Mask Nasal Cannula Nasal Cannula Nasal Cannula O2 Flow Rate 10.0 3.0 3.0 3.0 FiO2 28 28 28 06/15/25 06/15/25 06/15/25 06/15/25 12:45 12:50 12:55 13:00 Temp 97.2 97.2 97.2 97.2 Pulse 73 75 74 75 Resp 18 18 18 18 B/P (MAP) 156/75 157/73 160/80 157/76 Pulse Ox 95 93 94 94 O2 Delivery Nasal Cannula Nasal Cannula Nasal Cannula Nasal Cannula O2 Flow Rate 3.0 3.0 3.0 3.0 FiO2 28 28 28 28 06/15/25 06/15/25 06/15/25 06/15/25 13:05 13:10 13:15 13:15 Temp 97.2 97.2 98.4 97.2 Pulse 79 75 76 76 Resp 18 18 17 B/P (MAP) 155/75 160/74 154/80 154/76 Pulse Ox 93 92 92 92 O2 Delivery Nasal Cannula Nasal Cannula Nasal Cannula Nasal Cannula O2 Flow Rate 3.0 3.0 3.0 3.0 FiO2 28 28 06/15/25 06/15/25 06/15/25 06/15/25 13:30 13:45 14:00 14:15 Pulse 69 88 69 68 B/P (MAP) 153/86 145/80 155/83 151/81 Pulse Ox 93 91 91 91 O2 Delivery Nasal Cannula Nasal Cannula Nasal Cannula Nasal Cannula O2 Flow Rate 3.0 3.0 3.0 3.0 06/15/25 06/15/25 06/15/25 06/15/25 14:45 14:55 14:56 15:15 Pulse 71 66 67 78 Resp 18 18 B/P (MAP) 141/80 138/68 Pulse Ox 95 93 O2 Delivery Nasal Cannula N/Cannula Low lpm Nasal Cannula O2 Flow Rate 3.0 3.0 3.0 FiO2 32 06/15/25 06/15/25 06/15/25 06/15/25 16:15 17:15 18:56 18:56 Pulse 80 73 77 77 Resp 20 20 B/P (MAP) 153/88 169/89 Pulse Ox 94 94 O2 Delivery Nasal Cannula Nasal Cannula N/Cannula Low lpm O2 Flow Rate 3.0 3.0 3.0 FiO2 32 06/15/25 19:43 Temp 98.2 Pulse 74 Resp 18 B/P (MAP) 147/86 Pulse Ox 98 O2 Delivery Nasal Cannula Intake & Output (last 24hrs) 06/14/25 06/14/25 06/15/25 15:00 23:00 07:00 Intake Total 780.0 ml 2160.0 ml 849.9 ml Output Total 1600 ml Balance 780.0 ml 2160.0 ml -750.1 ml LABS: Laboratory: Test 06/15/25 03:47 06/14/25 03:15 Range/Units White Blood Count 10.6 4.8-10.8 K/uL Red Blood Count 3.40 L 4.00-5.50 MIL/uL Hemoglobin 9.0 L 12.0-16.0 g/dL Hematocrit 29.2 L 36-48 % Mean Corpuscular Volume 85.9 79-99 fL Mean Corpuscular Hemoglobin 26.5 L 27.0-33.0 pg Mean Corpuscular Hemoglobin Concent 30.8 L 32.0-36.0 g/dL Red Cell Distribution Width 16.3 H 11.0-15.5 % Platelet Count 106 L 130-400 K/uL Mean Platelet Volume 10.6 H 7.5-10.5 fL Immature Granulocyte % (Auto) 1.2 H 0-1 % Neutrophils (%) (Auto) 74.7 40.0-77.0 % Lymphocytes (%) (Auto) 17.6 L 21.0-51.0 % Monocytes (%) (Auto) 5.1 3.0-13.0 % Eosinophils (%) (Auto) 1.1 0.0-8.0 % Basophils (%) (Auto) 0.3 0.0-5.0 % Neutrophils # (Auto) 7.9 H 1.8-7.7 K/uL Lymphocytes # (Auto) 1.9 1.0-4.8 K/uL Monocytes # (Auto) 0.5 0.1-1.0 K/uL Eosinophils # (Auto) 0.12 0.00-0.70 K/uL Basophils # (Auto) 0.03 0.00-0.20 K/uL Absolute Immature Granulocyte (auto 0.13 0-1 K/uL Nucleated Red Blood Cells 0.0 0.0-0.19 % Red Blood Cell Morphology See comments Sodium Level 144 136-145 mmol/L Potassium Level 3.3 L 3.5-5.1 mmol/L Chloride Level 108 101-111 mmol/L Carbon Dioxide Level 27 21-32 mmol/L Blood Urea Nitrogen 7 7-18 mg/dL Creatinine 0.5 0.5-1.0 mg/dL Glomerular Filtration Rate Calc 100 >90 mL/min Random Glucose 91 70-105 mg/dL Lactic Acid Level 0.8 0.8-2.5 mmol/L Total Calcium 7.5 L 8.5-10.1 mg/dL Total Bilirubin 2.1 H 0.2-1.0 mg/dL Aspartate Amino Transf (AST/SGOT) 54 H 10-37 U/L Alanine Aminotransferase (ALT/SGPT) 103 H 12-78 U/L Alkaline Phosphatase 250 H 50-136 U/L Total Protein 5.5 L 6.0-8.3 g/dL Albumin 2.4 L 3.5-5.0 g/dL Procalcitonin 64.76 H 0.05-0.5 ng/mL Reticulocyte Count (auto) 1.28612 0.42-2.23 % Immature Reticulocyte Fraction 16.10 H 0.18-0.48 % Magnesium Level 2.30 1.80-2.40 mg/dL Iron Level 16 L 50-170 mcg/dL Total Iron Binding Capacity 217 L 250-450 mcg/dL Percent Iron Saturation 7.3 L 22-44 % Ferritin 180 H 15-150 ng/mL Vitamin B12 Level 345 193-986 pg/mL DIAGNOSTICS / RADIOLOGY: PATIENT: SHILPI SNELL ACCT: [id number] LOC: [facility] U: [id number] AGE/SX: 70/F ROOM: [facility] RE06/13/[address]: JUA NCARLOS GONZALEZ MD : 1955 BED: 1 DIS: STATUS: ADM IN TLOC: SPEC: [id number] SHAHLA: 06/13/25-015 STATUS: COMP REQ: [id number] RECD: 06/13/25-[address]: TEOFILO SHANKS MD SOURCE: [facility] ENTR: 06/13/25-[address]: MELLY CARTWRIGHT MD SPDESC: CLEAN CAT SELF,REFERRAL ORDERED: AERO ID & SENS ------- ----- Procedure Result [place] Date-Time AEROBIC ID & SENSITIVITIES Final 06/15/25-0559 MRL COLONY DESCRIPTION: DAY 1: COLONY COUNT: >100,000 CFU/ML GRAM NEGATIVE RODS IDENTIFICATION AND SENSITIVITY TO FOLLOW KLEBSIELLA AEROGENES QIAN ChaseIIsaacCIsaac RX --------- ---- AZTREONAM <=4 S CEFTAZIDIME <=1 S CEFTAZIDIME/AVIBACTAM <=8 S CEFTRIAXONE <=1 S GENTAMICIN >8 R LEVOFLOXACIN <=0.5 S NITROFURANTOIN <=32 S TOBRAMYCIN 4 I MEROPENEM <=1 S PIPERACILLIN/TAZOBACTAM <=8 S TRIMETHOPRIM/SUFLAMETHOXAZOLE <=2/38 S PATIENT: SHILPI SNELL ACCT: [id number] LOC: 2D U: [id number] AGE/SX: 70/F ROOM: 226 RE06/13/[address]: JUAN CARLOS GONZALEZ MD : 1955 BED: 1 DIS: STATUS: ADM IN TLOC: SPEC: [id number] SHAHLA: 06/12/25 STATUS: COMP REQ: [id number] RECD: 06/13/25 [facility] DR: JUAN CARLOS GONZALEZ MD SOURCE: BLOOD ENTR: 06/13/25 [facility] DR: TRINITY LIMA MD [facility] ENRIQUE SMITH MD,MELLY Randle MD SELF,REFERRAL ORDERED: AERO ID & SENS Procedure Result [place] Date-Time AEROBIC ID & SENSITIVITIES Final 06/15/25-0613 [facility] COLONY DESCRIPTION: DAY 1: GRAM NEGATIVE RODS IDENTIFICATION AND SENSITIVITY TO FOLLOW ANAEROBIC BOTTLE KLEBSIELLA AEROGENES QIAN [facility]LEY [facility].I.[facility]. RX --------- ---- AZTREONAM <=4 S CEFTAZIDIME <=1 S CEFTAZIDIME/AVIBACTAM <=8 S GENTAMICIN >8 R LEVOFLOXACIN <=0.5 S TOBRAMYCIN 4 I MEROPENEM <=1 S PIPERACILLIN/TAZOBACTAM <=8 S TRIMETHOPRIM/SUFLAMETHOXAZOLE <=2/38 S ASSESSMENT: Gram-negative bacteremia. Urinary tract infection. Sepsis. Leukocytosis, resolving. Hypokalemia. Dilated common bile duct, status post EGD with EUS.. Elevated liver enzymes. Obesity. Debility. PLAN: Continue doxycycline. Continue Zosyn IV. Continue GI prophylaxis. We will follow up on the final culture results. Continue pain management. Scheduled for an ERCP for tomorrow.. This case was reviewed and discussed with my supervising physician and the above assessment and plan was formulated and agreed upon. ATTESTATION BY PHYSICIAN I have seen and examined the patient. I reviewed the documentation, medical decision making, and treatment plan as noted by the mid-level provider above. I agree with the findings and plan of care. TRINITY LIMA MD, MIRTA L [facility] Jun 15, 2025 21:25
[2025-06-16] VITALS (33 sets, daily range): BP systolic 106–172; BP diastolic 66–104; PULSE 70–89; RESP 17–20; TEMP 97.6–99.2; O2SAT 93–97
[2025-06-16 03:46] LABS: IMMATURE GRANULOCYTE ABSOLUTE 0.10 K/uL (0-1); NUCLEATED RED BLOOD CELLS 0.0 % (0.0-0.19); PLATELET COUNT (AUTO) 115 K/uL (130-400); RED BLOOD CELL COUNT(AUTO) 3.73 MIL/uL (4.00-5.50); RED CELL DISTRIBUTION WIDTH 16.2 % (11.0-15.5); WHITE BLOOD COUNT (AUTO) 8.4 K/uL (4.8-10.8)
[2025-06-16 04:20] LABS: ASPARTATE AMINOTRANSFERASE 33.0 U/L (10-37); CREATININE 0.4 mg/dL (0.5-1.0); GLOMERULAR FILTR. RATE CALC 106.0 mL/min (>90); GLUCOSE,RANDOM 91.0 mg/dL (70-105); SODIUM SERUM 142.0 mmol/L (136-145); TOTAL PROTEIN, SERUM 6.1 g/dL (6.0-8.3); UREA NITROGEN, BLOOD 2.0 mg/dL (7-18)
[2025-06-16 06:55] LABS: INR 1.03 (0.85-1.15)
[2025-06-16] MEDS ORDERED: IOHEXOL-350 50ML VIAL IV ONE (07:44)
[2025-06-16] MEDS: FAMOTIDINE 20MG VIAL IV ONE (07:54)
[2025-06-16] MEDS ORDERED: GLYCOPYRROLATE 0.2 MG/ML 5 ML VIAL ONE (08:08)
[2025-06-16] MEDS ORDERED: NEOSTIGMINE METHYLSULFATE 1MG/ML IV ONE (08:09)
[2025-06-16] MEDS ORDERED: MIDAZOLAM HCL 1 MG/ML 2ML VIAL ONE (08:09)
--- NOTE | 2025-06-16 08:10 | NUR ---
MARY BARRAZA CRNA VERBALLY REQUESTED ALBUTEROL TREATMENT. MARY SIMON MADE AWARE DOSE WAS GIVEN AT 0650. MARY SIMON PROCEEDED TO CONTINUE WITH ANOTHER ALBUTEROL TREATMENT.
--- NOTE | 2025-06-16 08:13 | PN ---
[facility] CARDIOLOG[facility] PROGRESS NOTE Date Patient Seen: Jun 16, 2025 Time of Visit: 08:12 Problem List: Severe sepsis UTI, bacteremia (Klebsiella aerogenes) Elevated troponin, type II MS Interval History: Patient not seen as she is in ERCP No acute issues overnight per RN. Laboratory: [ ] Hematology Labs: Test 06/16/25 03:05 06/15/25 03:47 Range/Units White Blood Count 8.4 4.8-10.8 K/uL Red Blood Count 3.73 L 4.00-5.50 MIL/uL Hemoglobin 10.0 L 12.0-16.0 g/dL Hematocrit 32.8 L 36-48 % Mean Corpuscular Volume 87.9 79-99 fL Mean Corpuscular Hemoglobin 26.8 L 27.0-33.0 pg Mean Corpuscular Hemoglobin Concent 30.5 L 32.0-36.0 g/dL Red Cell Distribution Width 16.2 H 11.0-15.5 % Platelet Count 115 L 130-400 K/uL Mean Platelet Volume 10.6 H 7.5-10.5 fL Immature Granulocyte % (Auto) 1.2 H 0-1 % Neutrophils (%) (Auto) 74.3 40.0-77.0 % Lymphocytes (%) (Auto) 17.0 L 21.0-51.0 % Monocytes (%) (Auto) 5.7 3.0-13.0 % Eosinophils (%) (Auto) 1.4 0.0-8.0 % Basophils (%) (Auto) 0.4 0.0-5.0 % Neutrophils # (Auto) 6.3 1.8-7.7 K/uL Lymphocytes # (Auto) 1.4 1.0-4.8 K/uL Monocytes # (Auto) 0.5 0.1-1.0 K/uL Eosinophils # (Auto) 0.12 0.00-0.70 K/uL Basophils # (Auto) 0.03 0.00-0.20 K/uL Absolute Immature Granulocyte (auto 0.10 0-1 K/uL Nucleated Red Blood Cells 0.0 0.0-0.19 % Red Blood Cell Morphology See comments Chemistry Labs: Test 06/16/25 03:05 06/15/25 03:47 Range/Units Sodium Level 142 136-145 mmol/L Potassium Level 3.5 3.5-5.1 mmol/L Chloride Level 106 101-111 mmol/L Carbon Dioxide Level 28 21-32 mmol/L Blood Urea Nitrogen 2 L 7-18 mg/dL Creatinine 0.4 L 0.5-1.0 mg/dL Glomerular Filtration Rate Calc 106 >90 mL/min Random Glucose 91 70-105 mg/dL Total Calcium 8.5 8.5-10.1 mg/dL Total Bilirubin 2.0 H 0.2-1.0 mg/dL Aspartate Amino Transf (AST/SGOT) 33 10-37 U/L Alanine Aminotransferase (ALT/SGPT) 85 H 12-78 U/L Alkaline Phosphatase 268 H 50-136 U/L Total Protein 6.1 6.0-8.3 g/dL Albumin 2.7 L 3.5-5.0 g/dL Lactic Acid Level 0.8 0.8-2.5 mmol/L Procalcitonin 64.76 H 0.05-0.5 ng/mL Coagulation Labs: Test 06/16/25 06:40 Range/Units Prothrombin Time 10.9 9.6-11.6 SEC Prothromb Time International Ratio 1.03 0.85-1.15 Impression and Plan: Severe sepsis UTI with bacteremia (Klebsiella aerogenes) Hypokalemia likely precipitated by N/V Syncope NSTEMI, Type II MS (Troponin peak 680) CT of the chest on 06/14/2025 with Asc TTA measuring 4.5 cm. 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 Manuel Gambino, on immunosuppressant CellCept Occipital neuralgia, migraines, fibromyalgia, chronic back pain, chronic pain syndrome COPD, pulmonary fibrosis, ARDS on chronic home O2 at 2-3 L via nasal cannula secondary to COVID History of left lower extremity DVT History of skin cancer with resection Use of THC Allergy to Metoprolol Echocardiogram Conclusion LVEF is 55-60%. The left ventricular diastolic function is normal. The right ventricle is mildly dilated. The left atrium is severely dilated. DICTATED BY: INNA WINKLER DO DATE: 06/14/255 Pending ERCP, hold ASA No statin due to elevated transaminases No beta amparo due to history of metoprolol allergy Elevated troponin likely artist's representative of type II MS. Can evaluate with non invasive pharmacologic stress testing in outpatient setting following recovery of acute illness. Recommend repeat CTA chest in 6 months for reassessment of AscAo aneurysm Blood pressure not adequately controlled. Resumed home [place]-i lisinopril Patient stable from cardiac standpoint. No further testing planned as inpatient. Follow up with primary roaster supervisor, Dr Moncada, in 2-3 weeks post discharge. INNA WINKLER DO Jun 16, 2025 08:13
[2025-06-16] MEDS ORDERED: SUCCINYLCHOLINE CHLORIDE 20 MG/ML 10 ML VIAL ONE (08:43)
[2025-06-16] MEDS: ALBUTEROL 0.083% 2.5 MG/3 ML INH IH ONE (08:57)
[2025-06-16] MEDS: INDOMETHACIN 100 MG SUPP.RECT RC ONE (09:09)
[2025-06-16] MEDS ORDERED: PHENOL 177 ML BOTTLE PO PRN (15:30)
--- NOTE | 2025-06-16 16:14 | PN ---
[facility] PROGRESS NOTE Date of Service: Jun 16, 2025 Time of Service: 15:51 SUBJECTIVE: This is a 70-year-old female with past medical history of chronic back pain, mitral valve prolapse, hypertension, Chronic obstructive pulmonary disease ,pulmonary fibrosis , h/o chronic cholecystitis with cholelithiasis, status post ERCP with removal of common bile duct stones (2014) who was brought by EMS to the ED with complaints of generalized body weakness, nausea, vomiting ,diarrhea and fall . The patient was found by her on the restroom floor following a fall, accordingly landing on her buttocks. She initially denied hitting her head or losing consciousness however upon further questioning she acknowledged having fainted but was unsure of exact sequence of events. She recalls regaining awareness while enroute to hospital in the ambulance. she complained of headache which resolved. Of note, she had a recent COVID-19 infection approximately 2 weeks back. Patient also uses supplemental oxygen at home via nasal cannula at 3 liter/minute. Vital signs upon ER arrival temperature 103.5, heart rate 122, blood pressure 164/95, saturation 98% on 3 L nasal cannula.Patient reports she has a small lesion in her head that has been there due to psoriasis she said. At the time of presentation she was alert, coherent , follows commands and moving all extremities. Patient denies chest pain, palpitation, shortness of breaths and dizziness. Latest vital signs temperature a 100.2, heart rate 86, respiration 23, blood pressure 115/54, saturation 95% on 3 L. patient also reports she is taking THC gummies for her chronic back pain. Labs: WBC 15 with negative left shift of neutrophils 93, hemoglobin 11, hematocrit 38, platelet count 161. Potassium 2.1, creatinine 1.1, GFR 54 gl ucose 177, lactic acid 4.8, troponin 442. Urinalysis consistent with urinary tract infection. ECG result revealed sinus tachycardia heart rate 110 with probable left ventricular hypertrophy with secondary repolarization abnormalities. Chest x-ray result revealed mild bibasilar airspace disease, likely atelectasis or infiltrates. Mild Chronic obstructive pulmonary disease. While in the ER patient received IV fluid resuscitation of NS 30 mL/kilogram over 3 hours, Tylenol 1000 mg p.o., potassium replacement, albuterol neb treatment, Rocephin 2 g IV and azithromycin IV. We will admit patient for further medical management. 06/13/2025: Patient is seen and evaluated at the bedside. She has severe sepsis secondary to urinary tract infection. Labs show improving lactic acid, improving WBCs, low magnesium, low platelets, abnormal liver function test, elevated troponin peaked at 680 . Her bilirubin is elevated at 7.3 And she report that she has been experiencing coffee colored watery stools for past2 days. She is also found to have a systolic murmur. ID, gastroenterology, pulmonology, Cardiology consults requested. As per the patient she has hand tremors now and complaints of back pain. We resumed her home [place] and Ambien. She is started on IV Zosyn and IV doxycycline. We will also request stool culture, C diff, echo, CT abdomen and pelvis. She is in no acute distress. 06/14/2025: Patient is seen and evaluated at the bedside. She has severe sepsis secondary to urinary tract infection. Labs show improving lactic acid, WBC, abnormal liver functions, low platelets, low potassium, normal magnesium, iron - 16, TIBC- 217, %sat-7.3, ferritin-180. So we replaced potassium and started iron sucrose. She also has a history of autoimmune disease for which she is My cophenolate Mofetil. ID saw the patient and they recommended to continue zosyn, pain management, antiemetic, monitor electrolytes and correct as needed, Continue DVT prophylaxis. Surgery saw the patient and they recommend MRI abdomen and MRCP recommended w/wo contrast, EGD with EUS in am. MRCP not feasible for this patient because of pain pump and prothesis. Urine culture showed gram negative rods. She is in no acute distress. As there is a history of fall, we ordered a CT scan of head. CT Abdomen and pelvis showed status post cholecystectomy, Dilated common bile duct measuring 1.2 cm. Mild central and peripheral dilatation of the biliary radicles,Mild hepatosplenomegaly. Simple hepatic cyst,Bosniak classification 1 right renal cyst,Small hiatus hernia, Small umbilical hernia containing a loop of small bowel. As there is history of MVP we ordered a echocardiogram and it showed LVEF is 55-60%, The left ventricular diastolic function is normal,The right ventricle is mildly dilated, The left atrium is severely dilated. 06/15/2025: Patient is seen and evaluated at the bedside. She has severe sepsis secondary to urinary tract infection. Labs show improving lactic acid, WBC, liver functions, potassium, low platelets, procalcitonin is 64.76, RBC is 3.4, Hb is 9, HCT is 29.2, plt is 106. Her neutrophil count is going down. EGD with EUS is done and there are stones in the common bile duct. ERCP is recommended and it will be done tomorrow. 06/16/2025: Patient is seen and evaluated at the bedside. She has severe sepsis secondary to urinary tract infection. Labs show improving labs. Today patient had ERCP and it showed choledocholithiasis, complete removal of stones is achieved by balloon extraction, and common bile duct was successfully dilated. After the procedure her symptoms resolved and she is feeling better. Cardiology saw this patient and they recommended to hold ASA, no statins due to elevated transaminases, no beta blockers, elevated troponin likely mechanical service representative of type II DE and can evaluate with non invasive pharmacologic stress testing in outpatient setting following recovery of acute illness,recommend repeat CTA chest in 6 months for reassessment of AscAo aneurysm, blood pressure not adequately controlled, resumed home [place]-i lisinopril, to follow up with primary flap lining binder in 2-3 weeks post discharge. Patient is in NAD. REVIEW OF SYSTEMS CONSTITUTIONAL: No fever. Denies night sweats. No unintentional weight loss reported. NEUROLOGICAL: Denies headache, amaurosis fugax, sensory deficit, vertigo/spinning sensation, gait abnormalities, or tremors. ENT: No hearing loss, otalgia, otorrhea, rhinitis, rhinorrhea, hoarseness, or sore throat. CARDIOVASCULAR: Denies any exertional angina, dyspnea on exertion, orthopnea, paroxysmal nocturnal dyspnea, palpitations, life-threatening arrhythmias, claudication. PULMONARY: Denies any shortness of breath, cough, phlegm/sputum, hemoptysis, pleuritic chest pain. SLEEP: Denies morning headaches, daytime somnolence or napping. Denies difficulty falling asleep, staying asleep, waking from sleep. Denies knowledge of snoring. GASTROINTESTINAL: No nausea, vomiting, abdominal pain. Denies any type of dysphagia to either liquids or solids. Denies pyrosis, early satiety, abdominal pain, constipation, or changes in stool consistency or caliber. Denies coffee-ground emesis, hematemesis, hematochezia, or melanotic stools. GENITOURINARY: Denies frequency, urgency, nocturia, hematuria or incontinence (Storage/Irritative symptoms.) Low urinary stream, straining to void, urinary intermittency or hesitancy, splitting of the voiding stream, terminal dribbling. ENDOCRINOLOGIC: Denies polyuria, polydipsia, polyphagia or heat/cold intolerances. Back pain + PHYSICAL EXAM GENERAL APPEARANCE: Morbidly obese female The patient is awake, alert, and oriented, mild distress NEUROLOGICAL: Cranial nerves II-XII grossly intact. Motor is 5/5 in bilateral upper and lower extremities proximal to distal. No sensory deficits. HEENT: Face is symmetric. Pupils are equal and reactive. Extraocular movements are intact. NECK: Supple. No JVD. No thyromegaly. No submental, submandibular, pre-/postau ricular, occipital or supraclavicular lymphadenopathy. CHEST: Normal chest expansion. No Telemetry. LUNGS: Absence of any rales, rhonchi or any wheezing. CARDIOVASCULAR: Regular. S1 and S2 normal. Systolic murmur appreciable ABDOMEN: Soft, nontender, and nondistended. There is no rebound, voluntary guarding, or rigidity. : Deferred. No [place]. EXTREMITIES: Non-edematous and not cyanotic. No clubbing. Good capillary refill. SKIN: Ecchymotic patches seen Vital Signs (last 8hr) Date Time Temp Pulse Resp B/P (MAP) Pulse Ox O2 Delivery O2 Flow Rate FiO2 06/16/25 14:42 99.1 78 19 152/85 92 Nasal Cannula 2.0 06/16/25 13:42 99.1 79 19 147/85 94 Nasal Cannula 2.0 06/16/25 12:42 99.1 79 19 151/85 92 Nasal Cannula 2.0 06/16/25 12:12 99.1 79 19 157/86 95 Nasal Cannula 2.0 06/16/25 11:42 99.1 73 19 160/82 89 Nasal Cannula 2.0 06/16/25 11:27 99.1 83 19 106/66 91 Nasal Cannula 2.0 06/16/25 11:12 99.1 75 19 142/69 91 Nasal Cannula 2.0 06/16/25 10:57 99.1 80 19 140/104 93 Nasal Cannula 2.0 06/16/25 10:42 99.1 81 19 144/79 94 Nasal Cannula 2.0 06/16/25 10:40 98.2 81 18 160/82 94 Nasal Cannula 2.0 06/16/25 10:35 77 17 164/79 94 Nasal Cannula 2.0 06/16/25 10:30 80 17 165/88 94 Nasal Cannula 2.0 24 06/16/25 10:25 77 17 161/81 95 Nasal Cannula 2.0 24 06/16/25 10:20 78 17 158/72 97 Nasal Cannula 2.0 24 06/16/25 10:15 76 20 164/77 100 Nonrebreathing Mask 10.0 100 06/16/25 10:10 79 19 162/79 100 Nonrebreathing Mask 10.0 100 06/16/25 10:05 75 20 169/88 100 Nonrebreathing Mask 10.0 100 06/16/25 10:00 81 20 172/82 100 Nonrebreathing Mask 10.0 100 06/16/25 09:55 98.2 82 18 170/83 100 Nonrebreathing Mask 10.0 100 06/16/25 09:34 95 Nasal Cannula* 3 32 06/16/25 08:50 7.0 06/16/25 08:50 7.0 06/16/25 08:30 79 18 06/16/25 08:04 18 N/Cannula Low lpm 3.0 32 LABS: Laboratory: Test 06/16/25 06:40 06/16/25 03:05 06/15/25 03:47 Range/Units Prothrombin Time 10.9 9.6-11.6 SEC Prothromb Time International Ratio 1.03 0.85-1.15 White Blood Count 8.4 4.8-10.8 K/uL Red Blood Count 3.73 L 4.00-5.50 MIL/uL Hemoglobin 10.0 L 12.0-16.0 g/dL Hematocrit 32.8 L 36-48 % Mean Corpuscular Volume 87.9 79-99 fL Mean Corpuscular Hemoglobin 26.8 L 27.0-33.0 pg Mean Corpuscular Hemoglobin Concent 30.5 L 32.0-36.0 g/dL Red Cell Distribution Width 16.2 H 11.0-15.5 % Platelet Count 115 L 130-400 K/uL Mean Platelet Volume 10.6 H 7.5-10.5 fL Immature Granulocyte % (Auto) 1.2 H 0-1 % Neutrophils (%) (Auto) 74.3 40.0-77.0 % Lymphocytes (%) (Auto) 17.0 L 21.0-51.0 % Monocytes (%) (Auto) 5.7 3.0-13.0 % Eosinophils (%) (Auto) 1.4 0.0-8.0 % Basophils (%) (Auto) 0.4 0.0-5.0 % Neutrophils # (Auto) 6.3 1.8-7.7 K/uL Lymphocytes # (Auto) 1.4 1.0-4.8 K/uL Monocytes # (Auto) 0.5 0.1-1.0 K/uL Eosinophils # (Auto) 0.12 0.00-0.70 K/uL Basophils # (Auto) 0.03 0.00-0.20 K/uL Absolute Immature Granulocyte (auto 0.10 0-1 K/uL Nucleated Red Blood Cells 0.0 0.0-0.19 % Sodium Level 142 136-145 mmol/L Potassium Level 3.5 3.5-5.1 mmol/L Chloride Level 106 101-111 mmol/L Carbon Dioxide Level 28 21-32 mmol/L Blood Urea Nitrogen 2 L 7-18 mg/dL Creatinine 0.4 L 0.5-1.0 mg/dL Glomerular Filtration Rate Calc 106 >90 mL/min Random Glucose 91 70-105 mg/dL Total Calcium 8.5 8.5-10.1 mg/dL Total Bilirubin 2.0 H 0.2-1.0 mg/dL Aspartate Amino Transf (AST/SGOT) 33 10-37 U/L Alanine Aminotransferase (ALT/SGPT) 85 H 12-78 U/L Alkaline Phosphatase 268 H 50-136 U/L Total Protein 6.1 6.0-8.3 g/dL Albumin 2.7 L 3.5-5.0 g/dL Red Blood Cell Morphology See comments Lactic Acid Level 0.8 0.8-2.5 mmol/L Procalcitonin 64.76 H 0.05-0.5 ng/mL Current Medications Medications (Trade) Dose Ordered Sig/Abby Route PRN Reason Start Time Stop Time Status Last Admin Dose Admin Acetaminophen (TYLenol 325MG TAB) 650 mg Q4H PRN PO MILD PAIN (1-3) 06/13/25 03:00 07/13/25 02:59 Acetaminophen (TYLenol 325MG TAB) 650 mg Q6H PRN PO TEMPERATURE GREATER THAN 101.5 06/13/25 03:00 07/13/25 02:59 06/13/25 11:37 650 MG Acetaminophen/ Hydrocodone Bitart (NORco 10) 1 tab Q4H PRN PO MODERATE PAIN (4-6) 06/13/25 14:30 06/13/25 14:24 DC Acetaminophen/ Hydrocodone Bitart (NORco 10) 1 tab Q6H PRN PO MODERATE PAIN (4-6) 06/13/25 14:30 06/20/25 14:29 06/16/25 14:51 1 TAB Albuterol (DUOneb) 1 udvial [id number] IH 06/13/25 06:00 06/16/25 06:33 DC 06/16/25 01:48 1 UDVIAL Albuterol (DUOneb) 1 udvial [id number] IH 06/16/25 06:30 07/13/25 05:59 06/16/25 06:45 1 UDVIAL Amlodipine Besylate (NorvASC 5MG TAB) 5 mg DAILY PO 06/13/25 14:30 07/13/25 14:29 06/16/25 13:08 5 MG Azithromycin 250 ml @ 250 mls/hr Q24H IVPB 06/13/25 01:00 06/13/25 08:41 DC 06/13/25 02:06 250 MLS/HR Ceftriaxone Sodium (ROCEphine 1G INJ) 1 gm Q12H IV 06/14/25 01:00 06/13/25 08:41 DC Doxycycline Hyclate 250 ml @ 125 mls/hr Q12H IV 06/13/25 14:30 06/13/25 17:49 DC Doxycycline Hyclate 250 ml @ 125 mls/hr Q12H IV 06/13/25 20:00 06/23/25 19:59 06/16/25 13:07 125 MLS/HR Home Med (Home Medication) 10 each DAILY14 PO 06/14/25 14:00 06/14/25 10:33 DC Home Med (Home Medication) Thc 30MG Gummy: DOSE= 15 MG DAILY PO 06/15/25 09:00 07/15/25 08:59 Home Med (Home Medication) Thc Gummy 10MG DAILY14 PO 06/14/25 14:00 07/14/25 13:59 06/14/25 13:40 1 EACH Lisinopril (Prinivil 5mg) 5 mg BID PO 06/15/25 21:00 07/15/25 20:59 06/16/25 13:09 5 MG Magnesium Sulfate 50 ml @ 0 mls/hr PROTOCOL PRN IV OTHER [SEE ORDER COMMENTS] 06/13/25 03:00 07/13/25 02:59 06/13/25 10:08 25 MLS/HR Magnesium Sulfate 50 ml @ 0 mls/hr PROTOCOL PRN IV hypomagnesemia 06/13/25 09:00 06/13/25 08:45 DC Metronidazole/ Sodium Chloride 100 ml @ 100 mls/hr Q8H IV 06/13/25 03:00 06/13/25 08:41 DC 06/13/25 04:01 100 MLS/HR Nitroglycerin (Nitrostat) 0.4 mg PROTOCOL PRN SL CHEST PAIN 06/13/25 03:00 07/13/25 02:59 Nystatin (NystOP 15 GM POWDER) apply to abdominal fold ... TID TP 06/14/25 21:00 07/14/25 20:59 06/16/25 14:06 1 APPL Ondansetron HCl (zoFRAN 4MG INJ) 4 mg Q6H PRN IV NAUSEA/VOMITING 06/13/25 03:00 07/13/25 02:59 Pantoprazole Sodium (PROTonix 40MG INJ) 40 mg DAILY IVP 06/13/25 09:00 07/13/25 08:59 06/16/25 13:08 40 MG Phenol (Sore Throat [place]) 1 spry TID PRN PO SORE THROAT 06/16/25 15:30 07/16/25 15:29 Piperacillin Sod/ Tazobactam Sod (Zosyn 3.375gm+NS 50ml) 3.375 gm Q8H IV 06/13/25 09:00 06/23/25 08:59 06/16/25 00:20 3.375 GM Potassium Chloride 10 meq/ Sodium Chloride 50 ml @ 50 mls/hr PROTOCOL IV 06/13/25 00:30 06/13/25 00:32 DC Potassium Chloride 100 ml @ 100 mls/hr AD PRN IV POTASSIUM PROTOCOL 06/13/25 03:00 07/13/25 02:59 06/16/25 04:07 100 MLS/HR Potassium Chloride (K-Dur/Klor-Con 20meq) 20 meq AD PRN PO POTASSIUM PROTOCOL 06/13/25 03:00 07/13/25 02:59 06/16/25 13:08 20 MEQ Potassium Chloride (KCl 10% Elixir 20meq/15ml) 20 meq AD PRN PO POTASSIUM PROTOCOL 06/13/25 03:00 07/13/25 02:59 06/14/25 05:23 20 MEQ Sodium Chloride 1,000 ml @ 100 mls/hr Q10H IV 06/13/25 03:00 06/14/25 23:42 DC 06/14/25 13:41 100 MLS/HR Sodium Chloride 1,000 ml @ 100 mls/hr Q10H IV 06/15/25 00:00 07/15/25 00:00 06/16/25 04:07 100 MLS/HR Zolpidem Tartrate (AmbIEN) 10 mg HS PRN PO INSOMNIA 06/13/25 14:30 07/13/25 14:29 06/15/25 22:13 10 MG DIAGNOSTICS / RADIOLOGY: [ ] ASSESSMENT: Severe sepsis POA Acute urinary tract infection POA Acute gastroenteritis POA Syncope POA ? in the setting of severe sepsis Status post fall at home POA Thrombocytopenia ,lactic acidosis - sepsis related liver dysfunction Choledocholithiasis causing Biliary duct obstruction, POA Hypokalemia POA Acute kidney injury POA Elevated troponin, type 2 DE in the setting of sepsis POA Euthyroid sick syndrome in the setting of sepsis Pulmonary fibrosis POA Acute on chronic hypoxemic respiratory failure on home O2 POA Iron deficiency anemia Thoracic Ascending Aortic aneurysm,POA Chronic back pain POA Chronic anemia POA Headache POA Hypertension POA Hyperglycemia POA Chronic obstructive pulmonary disease POA Recent COVID infection POA PLAN: patient admitted in [facility] Severe sepsis POA: source : Acute urinary tract infection POA Syncope POA ? in the setting of severe sepsis Status post fall at home POA lactic acidosis , - sepsis related liver dysfunction Blood culture growing gram negative rods and the final report is negative. started on IV Zosyn day 4 and IV Doxycycline day 4. Procalcitonin elevated at 162.3 Waiting for ID recommendations regarding IV antibiotics. Choledocholithiasis causing Biliary obstruction, POA Gastroenterology saw the patient and advised EGD and it showed stones in the common bile duct. ERCP is recommended and its done today. It showed choledocholithiasis and they are removed. Acute gastroenteritis POA Pending stool culture, c diff, stool occult blood test GI saw the patient and they recommended MRCP but she is not NPO for MRCP they put it on hold. Also GI recommended EGD with EUS in am. EGD with EUS was done and it showed stones in the common bile duct. ERCP is done today. It showed choledocholithiasis and they are removed. Hypokalemia POA Today her potassium is 3.5. Euthyroid sick syndrome in the setting of sepsis TSH 0.33, T3 1.34, T4 1.15 repeat thyroid levels in a month as outpatient Pulmonary fibrosis POA Acute on chronic hypoxemic respiratory failure on home O2 POA Patient on NC oxygen supplementation Iron deficiency anemia Gave IV iron sucrose because her iron is 16, transferrin saturation is 7.3. repeat anemia pannel in a month as outpatient Hypertension POA Continue lisinopril and amlodipine. Thoracic Ascending Aortic aneurysm,POA Cardiology saw the patient and they recommended repeat CTA in 6 months and follow up with primary flap lining binder Dr. Moncada in 2 to 3 weeks. Continue clear liquid diet. We will start on Protonix 40 mg IV daily for GI prophylaxis We will replace electrolytes as needed per protocol We will add prn medication for fever,pain,cough , nausea and vomiting We will check fecal occult blood x1, stool GI panel ova and parasite We will request case management service Neuro check q.4 hours per nursing Fall precautions DVT prophylaxis with SCD. ATTESTATION BY PHYSICIAN I have seen and examined the patient. I reviewed the documentation, medical decision making, and treatment plan as noted by the resident provider above. I agree with the findings and plan of care. Arslan Bah MD, AKSHAY MD Jun 16, 2025 16:14
--- NOTE | 2025-06-16 22:11 | PN ---
INFECTIOUS DISEASE PROGRESS NOTE Date of Service: Jun 16, 2025 SUBJECTIVE: This is a 70-year-old female patient who was seen at bedside in room 226. Patient is status post ERCP today with findings of choledocholithiasis with successful extraction. No fever, temperature is 98.2. Continues on Zosyn and doxycycline. We will have case management evaluate for SNF placement for rehab. PHYSICAL EXAM EYES: Anicteric. Pupils equal and reactive. HENT: No oral thrush seen, moist Oral mucosa. NECK: Supple, no JVD or thyromegaly. LUNGS: Good air entry. No rales, no rhonchi. CARDIOVASCULAR: S1, S2 regular. No murmur heard. ABDOMEN: Soft, non tender, bowel sounds present, no organomegaly. CENTRAL NERVOUS SYSTEM: Awake, alert, oriented x 3. SKIN: No rashes, no swelling. LYMPHATICS: No peripheral lymphadenopathy. MUSCULOSKELETAL: No joint swelling, erythema or tenderness. EXTREMITIES: No cyanosis or clubbing. BACK: No deformity, no pressure ulcer. GENITOURINARY: No dysuria or hematuria. Vital Sign (Last 12 Hours) 06/16/25 06/16/25 06/16/25 06/16/25 10:05 10:10 10:15 10:20 Pulse 75 79 76 78 Resp 20 19 20 17 B/P (MAP) 169/88 162/79 164/77 158/72 Pulse Ox 100 100 100 97 O2 Delivery Nonrebreathing Mask Nonrebreathing Mask Nonrebreathing Mask Nasal Cannula O2 Flow Rate 10.0 10.0 10.0 2.0 FiO2 100 100 100 24 06/16/25 06/16/25 06/16/25 06/16/25 10:25 10:30 10:35 10:40 Temp 98.2 Pulse 77 80 77 81 Resp 17 17 17 18 B/P (MAP) 161/81 165/88 164/79 160/82 Pulse Ox 95 94 94 94 O2 Delivery Nasal Cannula Nasal Cannula Nasal Cannula Nasal Cannula O2 Flow Rate 2.0 2.0 2.0 2.0 FiO2 24 24 24 24 06/16/25 06/16/25 06/16/25 06/16/25 10:42 10:57 11:12 11:27 Temp 99.1 99.1 99.1 99.1 Pulse 81 80 75 83 Resp 19 19 19 19 B/P (MAP) 144/79 140/104 142/69 106/66 Pulse Ox 94 93 91 91 O2 Delivery Nasal Cannula Nasal Cannula Nasal Cannula Nasal Cannula O2 Flow Rate 2.0 2.0 2.0 2.0 06/16/25 06/16/25 06/16/25 06/16/25 11:42 12:12 12:42 13:42 Temp 99.1 99.1 99.1 99.1 Pulse 73 79 79 79 Resp 19 19 19 19 B/P (MAP) 160/82 157/86 151/85 147/85 Pulse Ox 89 95 92 94 O2 Delivery Nasal Cannula Nasal Cannula Nasal Cannula Nasal Cannula O2 Flow Rate 2.0 2.0 2.0 2.0 06/16/25 06/16/25 06/16/25 06/16/25 14:42 15:30 19:10 19:10 Temp 99.1 97.5 Pulse 78 80 83 83 Resp 19 19 18 18 B/P (MAP) 152/85 156/88 Pulse Ox 92 92 O2 Delivery Nasal Cannula Nasal Cannula N/Cannula Low lpm O2 Flow Rate 2.0 2.0 3.0 FiO2 32 06/16/25 20:00 Temp 98.1 Pulse 89 Resp 18 B/P (MAP) 157/88 Pulse Ox 95 O2 Delivery Nasal Cannula Intake & Output (last 24hrs) 06/15/25 06/15/25 06/16/25 15:00 23:00 07:00 Intake Total 250.0 ml Output Total 1800 ml 2100 ml 3100 ml Balance -1800 ml -1850.0 ml -3100 ml LABS: Laboratory: Test 06/16/25 06:40 06/16/25 03:05 06/15/25 03:47 Range/Units Prothrombin Time 10.9 9.6-11.6 SEC Prothromb Time International Ratio 1.03 0.85-1.15 White Blood Count 8.4 4.8-10.8 K/uL Red Blood Count 3.73 L 4.00-5.50 MIL/uL Hemoglobin 10.0 L 12.0-16.0 g/dL Hematocrit 32.8 L 36-48 % Mean Corpuscular Volume 87.9 79-99 fL Mean Corpuscular Hemoglobin 26.8 L 27.0-33.0 pg Mean Corpuscular Hemoglobin Concent 30.5 L 32.0-36.0 g/dL Red Cell Distribution Width 16.2 H 11.0-15.5 % Platelet Count 115 L 130-400 K/uL Mean Platelet Volume 10.6 H 7.5-10.5 fL Immature Granulocyte % (Auto) 1.2 H 0-1 % Neutrophils (%) (Auto) 74.3 40.0-77.0 % Lymphocytes (%) (Auto) 17.0 L 21.0-51.0 % Monocytes (%) (Auto) 5.7 3.0-13.0 % Eosinophils (%) (Auto) 1.4 0.0-8.0 % Basophils (%) (Auto) 0.4 0.0-5.0 % Neutrophils # (Auto) 6.3 1.8-7.7 K/uL Lymphocytes # (Auto) 1.4 1.0-4.8 K/uL Monocytes # (Auto) 0.5 0.1-1.0 K/uL Eosinophils # (Auto) 0.12 0.00-0.70 K/uL Basophils # (Auto) 0.03 0.00-0.20 K/uL Absolute Immature Granulocyte (auto 0.10 0-1 K/uL Nucleated Red Blood Cells 0.0 0.0-0.19 % Sodium Level 142 136-145 mmol/L Potassium Level 3.5 3.5-5.1 mmol/L Chloride Level 106 101-111 mmol/L Carbon Dioxide Level 28 21-32 mmol/L Blood Urea Nitrogen 2 L 7-18 mg/dL Creatinine 0.4 L 0.5-1.0 mg/dL Glomerular Filtration Rate Calc 106 >90 mL/min Random Glucose 91 70-105 mg/dL Total Calcium 8.5 8.5-10.1 mg/dL Total Bilirubin 2.0 H 0.2-1.0 mg/dL Aspartate Amino Transf (AST/SGOT) 33 10-37 U/L Alanine Aminotransferase (ALT/SGPT) 85 H 12-78 U/L Alkaline Phosphatase 268 H 50-136 U/L Total Protein 6.1 6.0-8.3 g/dL Albumin 2.7 L 3.5-5.0 g/dL Red Blood Cell Morphology See comments Lactic Acid Level 0.8 0.8-2.5 mmol/L Procalcitonin 64.76 H 0.05-0.5 ng/mL ASSESSMENT: Klebsiella aerogenes bacteremia. Urinary tract infection with Klebsiella aerogenes. Sepsis. Leukocytosis, resolving. Hypokalemia. Dilated common bile duct, status post ERCP with findings of choledocholithiasis with successful extraction. Elevated liver enzymes. Obesity. Debility. PLAN: Continue doxycycline. Continue Zosyn IV. Continue GI prophylaxis. We will follow up on the final culture results. Continue pain management. Case management to evaluate for referral to [facility] for rehab. This case was reviewed and discussed with my supervising physician and the above assessment and plan was formulated and agreed upon. ATTESTATION BY PHYSICIAN I have seen and examined the patient. I reviewed the documentation, medical decision making, and treatment plan as noted by the mid-level provider above. I agree with the findings and plan of care. TRINITY LIMA MD, MIRTA L [facility] Jun 16, 2025 22:11
[2025-06-17] VITALS (14 sets, daily range): BP systolic 137–159; BP diastolic 60–81; PULSE 72–95; RESP 18–22; TEMP 97.8–98.7; O2SAT 94–98
[2025-06-17 04:03] LABS: IMMATURE GRANULOCYTE ABSOLUTE 0.30 K/uL (0-1); NUCLEATED RED BLOOD CELLS 0.0 % (0.0-0.19); PLATELET COUNT (AUTO) 144 K/uL (130-400); RED BLOOD CELL COUNT(AUTO) 4.30 MIL/uL (4.00-5.50); RED CELL DISTRIBUTION WIDTH 15.5 % (11.0-15.5); WHITE BLOOD COUNT (AUTO) 7.6 K/uL (4.8-10.8)
[2025-06-17 04:25] LABS: ASPARTATE AMINOTRANSFERASE 31.0 U/L (10-37); CREATININE 0.5 mg/dL (0.5-1.0); GLOMERULAR FILTR. RATE CALC 100.0 mL/min (>90); GLUCOSE,RANDOM 134.0 mg/dL (70-105); SODIUM SERUM 138.0 mmol/L (136-145); TOTAL PROTEIN, SERUM 6.6 g/dL (6.0-8.3); UREA NITROGEN, BLOOD 7.0 mg/dL (7-18)
[2025-06-17] MEDS ORDERED: MAGNESIUM CITRATE 296 ML SOLUTION PO ONE (15:00)
--- NOTE | 2025-06-17 15:35 | PN ---
GASTROENTEROLOGY PROGRESS NOTE Date of Visit: Jun 17, 2025 Time of Visit: 15:35 Events / Notes: [ ] Review of Systems: CONSTITUTIONAL: No malaise or change in sensation of wellbeing. ENMT: No rhinorrhea, otorrhea, sinus pain, ear ache. CARDIOVASCULAR: No angina, palpitations, orthopnea or paroxysmal dyspnea. RESPIRATORY: No SOB. GASTROINTESTINAL: No abdominal pain, nausea, vomiting, diarrhea, hematemesis, melena or change in the patient's habitual bowel movements consistency/number. GENITOURINARY: No dysuria, hematuria or change in bladder continence. MUSCULOSKELETAL: No new muscle pain or decrease in muscular strength. No new joint swelling, redness or tenderness. SKIN: No new rash. Physical Exam: GEN: Awake, alert, oriented in person, time and place, and in no acute distress. HEENT: No sinus tenderness. Tympanic membranes were not examined. No rhinorrhea. Oral pharyngeal mucosa is pink, moist and within normal limits. Neck is supple with no cervical lymphadenopathy, thyromegaly or JVD. CHEST: Inspection, palpation and percussion of the chest were unremarkable. Lung auscultation revealed normal breath sounds bilaterally. CARDIAC: PMI is within normal limits. Heart sounds are regular. Normal S1, S2. No gallop or murmur. ABD: Soft, non-tender and not distended. No peritoneal signs on palpation. No organomegaly. Normal bowel sounds. EXT: No cyanosis or clubbing. No edema. SKIN: Intact. No rashes. JOINTS: No evidence of synovitis or acute arthritis. NEURO: Alert and oriented to name, place and person. Cranial nerve examination is unremarkable. No focal motor deficits. Normal speech. Gait is normal. Strength is normal. Vital Signs (last 8hr) Date Time Temp Pulse Resp B/P (MAP) Pulse Ox O2 Delivery O2 Flow Rate FiO2 06/17/25 12:06 97.9 72 18 142/73 97 Room Air 06/17/25 11:23 81 18 06/17/25 11:22 81 18 N/Cannula Low lpm 3.0 32 06/17/25 08:23 97.9 95 18 137/73 95 Nasal Cannula 2.0 06/17/25 08:00 95 Nasal Cannula* 3 32 Laboratory: [ ] Laboratory: Test 06/17/25 03:41 7/16/25 06:40 Range/Units White Blood Count 7.6 4.8-10.8 K/uL Red Blood Count 4.30 4.00-5.50 MIL/uL Hemoglobin 11.2 L 12.0-16.0 g/dL Hematocrit 36.9 36-48 % Mean Corpuscular Volume 85.8 79-99 fL Mean Corpuscular Hemoglobin 26.0 L 27.0-33.0 pg Mean Corpuscular Hemoglobin Concent 30.4 L 32.0-36.0 g/dL Red Cell Distribution Width 15.5 11.0-15.5 % Platelet Count 144 # 130-400 K/uL Mean Platelet Volume 10.2 7.5-10.5 fL Immature Granulocyte % (Auto) 4.0 H 0-1 % Neutrophils (%) (Auto) 77.7 H 40.0-77.0 % Lymphocytes (%) (Auto) 13.5 L 21.0-51.0 % Monocytes (%) (Auto) 4.5 3.0-13.0 % Eosinophils (%) (Auto) 0.0 0.0-8.0 % Basophils (%) (Auto) 0.3 0.0-5.0 % Neutrophils # (Auto) 5.9 1.8-7.7 K/uL Lymphocytes # (Auto) 1.0 1.0-4.8 K/uL Monocytes # (Auto) 0.3 0.1-1.0 K/uL Eosinophils # (Auto) 0.00 0.00-0.70 K/uL Basophils # (Auto) 0.02 0.00-0.20 K/uL Absolute Immature Granulocyte (auto 0.30 0-1 K/uL Nucleated Red Blood Cells 0.0 0.0-0.19 % Sodium Level 138 136-145 mmol/L Potassium Level 4.4 3.5-5.1 mmol/L Chloride Level 102 101-111 mmol/L Carbon Dioxide Level 25 21-32 mmol/L Blood Urea Nitrogen 7 7-18 mg/dL Creatinine 0.5 0.5-1.0 mg/dL Glomerular Filtration Rate Calc 100 >90 mL/min Random Glucose 134 H 70-105 mg/dL Total Calcium 8.9 8.5-10.1 mg/dL Total Bilirubin 1.6 H 0.2-1.0 mg/dL Aspartate Amino Transf (AST/SGOT) 31 10-37 U/L Alanine Aminotransferase (ALT/SGPT) 70 12-78 U/L Alkaline Phosphatase 269 H 50-136 U/L Total Protein 6.6 6.0-8.3 g/dL Albumin 2.7 L 3.5-5.0 g/dL Procalcitonin 16.14 H 0.05-0.5 ng/mL Prothrombin Time 10.9 9.6-11.6 SEC Prothromb Time International Ratio 1.03 0.85-1.15 Current Medications Medications (Trade) Dose Ordered Sig/Abby Route PRN Reason Start Time Stop Time Status Last Admin Dose Admin Acetaminophen (TYLenol 325MG TAB) 650 mg Q4H PRN PO MILD PAIN (1-3) 06/13/25 03:00 07/13/25 02:59 Acetaminophen (TYLenol 325MG TAB) 650 mg Q6H PRN PO TEMPERATURE GREATER THAN 101.5 06/13/25 03:00 07/13/25 02:59 06/13/25 11:37 650 MG Acetaminophen/ Hydrocodone Bitart (NORco 10) 1 tab Q4H PRN PO MODERATE PAIN (4-6) 06/13/25 14:30 06/13/25 14:24 DC Acetaminophen/ Hydrocodone Bitart (NORco 10) 1 tab Q6H PRN PO MODERATE PAIN (4-6) 06/13/25 14:30 06/20/25 14:29 06/17/25 13:05 1 TAB Albuterol (DUOneb) 1 udvial [id number] 06/13/25 06:00 06/16/25 06:33 DC 06/16/25 01:48 1 UDVIAL Albuterol (DUOneb) 1 udvial [id number] 06/16/25 06:30 07/13/25 05:59 06/17/25 11:22 1 UDVIAL Amlodipine Besylate (NorvASC 5MG TAB) 5 mg DAILY PO 06/13/25 14:30 07/13/25 14:29 06/17/25 09:43 5 MG Azithromycin 250 ml @ 250 mls/hr Q24H IVPB 06/13/25 01:00 06/13/25 08:41 DC 06/13/25 02:06 250 MLS/HR Ceftriaxone Sodium (ROCEphine 1G INJ) 1 gm Q12H IV 06/14/25 01:00 06/13/25 08:41 DC Doxycycline Hyclate 250 ml @ 125 mls/hr Q12H IV 06/13/25 14:30 06/13/25 17:49 DC Doxycycline Hyclate 250 ml @ 125 mls/hr Q12H IV 06/13/25 20:00 06/23/25 19:59 06/17/25 09:42 125 MLS/HR Home Med (Home Medication) 10 each DAILY14 PO 06/14/25 14:00 06/14/25 10:33 DC Home Med (Home Medication) Thc 30MG Gummy: DOSE= 15 MG DAILY PO 06/15/25 09:00 07/15/25 08:59 06/17/25 06:09 1 EACH Home Med (Home Medication) Thc Gummy 10MG DAILY14 PO 06/14/25 14:00 07/14/25 13:59 06/17/25 13:05 1 EACH Lisinopril (Prinivil 5mg) 5 mg BID PO 06/15/25 21:00 07/15/25 20:59 06/17/25 09:43 5 MG Magnesium Sulfate 50 ml @ 0 mls/hr PROTOCOL PRN IV OTHER [SEE ORDER COMMENTS] 06/13/25 03:00 07/13/25 02:59 06/13/25 10:08 25 MLS/HR Magnesium Sulfate 50 ml @ 0 mls/hr PROTOCOL PRN IV hypomagnesemia 06/13/25 09:00 06/13/25 08:45 DC Metronidazole/ Sodium Chloride 100 ml @ 100 mls/hr Q8H IV 06/13/25 03:00 06/13/25 08:41 DC 06/13/25 04:01 100 MLS/HR Nitroglycerin (Nitrostat) 0.4 mg PROTOCOL PRN SL CHEST PAIN 06/13/25 03:00 07/13/25 02:59 Nystatin (NystOP 15 GM POWDER) apply to abdominal fold ... TID TP 06/14/25 21:00 07/14/25 20:59 06/17/25 13:05 1 APPL Ondansetron HCl (zoFRAN 4MG INJ) 4 mg Q6H PRN IV NAUSEA/VOMITING 06/13/25 03:00 07/13/25 02:59 Pantoprazole Sodium (PROTonix 40MG INJ) 40 mg DAILY IVP 06/13/25 09:00 07/13/25 08:59 06/17/25 09:43 40 MG Phenol (Sore Throat Edson) 1 spry TID PRN PO SORE THROAT 06/16/25 15:30 07/16/25 15:29 Piperacillin Sod/ Tazobactam Sod (Zosyn 3.375gm+NS 50ml) 3.375 gm Q8H IV 06/13/25 09:00 06/23/25 08:59 06/17/25 09:42 3.375 GM Potassium Chloride 10 meq/ Sodium Chloride 50 ml @ 50 mls/hr PROTOCOL IV 06/13/25 00:30 06/13/25 00:32 DC Potassium Chloride 100 ml @ 100 mls/hr AD PRN IV POTASSIUM PROTOCOL 06/13/25 03:00 07/13/25 02:59 06/16/25 04:07 100 MLS/HR Potassium Chloride (K-Dur/Klor-Con 20meq) 20 meq AD PRN PO POTASSIUM PROTOCOL 06/13/25 03:00 07/13/25 02:59 06/16/25 13:08 20 MEQ Potassium Chloride (KCl 10% Elixir 20meq/15ml) 20 meq AD PRN PO POTASSIUM PROTOCOL 06/13/25 03:00 07/13/25 02:59 06/14/25 05:23 20 MEQ Sodium Chloride 1,000 ml @ 100 mls/hr Q10H IV 06/13/25 03:00 06/14/25 23:42 DC 06/14/25 13:41 100 MLS/HR Sodium Chloride 1,000 ml @ 100 mls/hr Q10H IV 06/15/25 00:00 07/15/25 00:00 06/17/25 09:47 100 MLS/HR Zolpidem Tartrate (AmbIEN) 10 mg HS PRN PO INSOMNIA 06/13/25 14:30 07/13/25 14:29 06/16/25 21:57 10 MG Diagnostics / Radiology: [COPY/PASTE HERE IF NO REPORTS PLEASE DELETE SECTION] Assessment: [Hyperbilirubinema Anemia Melena Elevated Transaminase CBD dilation Hypertension COPD ] Plan: ANGELA CASTELAN [employer] SETTER Jun 17, 2025 15:35
--- NOTE | 2025-06-17 16:04 | PN ---
INFECTIOUS DISEASE PROGRESS NOTE Date of Service: Jun 17, 2025 SUBJECTIVE: This is a 70-year-old female patient who was seen at bedside in room 226. Patient is awake, alert and oriented x3. Patient is pending physical therapy evaluation today. Case management working on placement to SNF for rehab. Remains afebrile, temperature is 97.9. We will continue on Zosyn and doxycycline. PHYSICAL EXAM EYES: Anicteric. Pupils equal and reactive. HENT: No oral thrush seen, moist Oral mucosa. NECK: Supple, no JVD or thyromegaly. LUNGS: No rales, no rhonchi. Oxygen via nasal cannula. CARDIOVASCULAR: S1, S2 regular. No murmur heard. ABDOMEN: Soft, non tender, bowel sounds present, no organomegaly. CENTRAL NERVOUS SYSTEM: Awake, alert, oriented x 3. SKIN: No rashes, no swelling. LYMPHATICS: No peripheral lymphadenopathy. MUSCULOSKELETAL: No joint swelling, erythema or tenderness. EXTREMITIES: No cyanosis or clubbing. BACK: No deformity, no pressure ulcer. GENITOURINARY: No dysuria or hematuria. Vital Sign (Last 12 Hours) 06/17/25 06/17/25 06/17/25 06/17/25 04:16 06:35 06:35 08:00 Temp 98.1 Pulse 78 78 78 Resp 18 18 18 B/P (MAP) 147/81 Pulse Ox 97 95 O2 Delivery Nasal Cannula N/Cannula Low lpm Nasal Cannula* O2 Flow Rate 3.0 3 FiO2 32 32 06/17/25 06/17/25 06/17/25 06/17/25 08:23 11:22 11:23 12:06 Temp 97.9 97.9 Pulse 95 81 81 72 Resp 18 18 18 18 B/P (MAP) 137/73 142/73 Pulse Ox 95 97 O2 Delivery Nasal Cannula N/Cannula Low lpm Room Air O2 Flow Rate 2.0 3.0 FiO2 32 Intake & Output (last 24hrs) 06/16/25 06/16/25 06/17/25 15:00 23:00 07:00 Intake Total 265.0 ml 750.0 ml 1250.0 ml Output Total 1450 ml 1100 ml 700 ml Balance -1185.0 ml -350.0 ml 550.0 ml LABS: Laboratory: Test 06/17/25 03:41 06/16/25 06:40 Range/Units White Blood Count 7.6 4.8-10.8 K/uL Red Blood Count 4.30 4.00-5.50 MIL/uL Hemoglobin 11.2 L 12.0-16.0 g/dL Hematocrit 36.9 36-48 % Mean Corpuscular Volume 85.8 79-99 fL Mean Corpuscular Hemoglobin 26.0 L 27.0-33.0 pg Mean Corpuscular Hemoglobin Concent 30.4 L 32.0-36.0 g/dL Red Cell Distribution Width 15.5 11.0-15.5 % Platelet Count 144 # 130-400 K/uL Mean Platelet Volume 10.2 7.5-10.5 fL Immature Granulocyte % (Auto) 4.0 H 0-1 % Neutrophils (%) (Auto) 77.7 H 40.0-77.0 % Lymphocytes (%) (Auto) 13.5 L 21.0-51.0 % Monocytes (%) (Auto) 4.5 3.0-13.0 % Eosinophils (%) (Auto) 0.0 0.0-8.0 % Basophils (%) (Auto) 0.3 0.0-5.0 % Neutrophils # (Auto) 5.9 1.8-7.7 K/uL Lymphocytes # (Auto) 1.0 1.0-4.8 K/uL Monocytes # (Auto) 0.3 0.1-1.0 K/uL Eosinophils # (Auto) 0.00 0.00-0.70 K/uL Basophils # (Auto) 0.02 0.00-0.20 K/uL Absolute Immature Granulocyte (auto 0.30 0-1 K/uL Nucleated Red Blood Cells 0.0 0.0-0.19 % Sodium Level 138 136-145 mmol/L Potassium Level 4.4 3.5-5.1 mmol/L Chloride Level 102 101-111 mmol/L Carbon Dioxide Level 25 21-32 mmol/L Blood Urea Nitrogen 7 7-18 mg/dL Creatinine 0.5 0.5-1.0 mg/dL Glomerular Filtration Rate Calc 100 >90 mL/min Random Glucose 134 H 70-105 mg/dL Total Calcium 8.9 8.5-10.1 mg/dL Total Bilirubin 1.6 H 0.2-1.0 mg/dL Aspartate Amino Transf (AST/SGOT) 31 10-37 U/L Alanine Aminotransferase (ALT/SGPT) 70 12-78 U/L Alkaline Phosphatase 269 H 50-136 U/L Total Protein 6.6 6.0-8.3 g/dL Albumin 2.7 L 3.5-5.0 g/dL Procalcitonin 16.14 H 0.05-0.5 ng/mL Prothrombin Time 10.9 9.6-11.6 SEC Prothromb Time International Ratio 1.03 0.85-1.15 ASSESSMENT: Klebsiella aerogenes bacteremia. Urinary tract infection with Klebsiella aerogenes. Sepsis. Leukocytosis, resolving. Hypokalemia. Dilated common bile duct, status post ERCP with findings of choledocholithiasis with successful extraction. Elevated liver enzymes. Obesity. Debility. PLAN: Continue doxycycline. Continue Zosyn IV. Continue GI prophylaxis. We will follow up on the final culture results. Continue pain management. Case management [facility]. This case was reviewed and discussed with my supervising physician and the above assessment and plan was formulated and agreed upon. ATTESTATION BY PHYSICIAN I have seen and examined the patient. I reviewed the documentation, medical decision making, and treatment plan as noted by the mid-level provider above. I agree with the findings and plan of care. TRINITY LIMA MD, [facility] Jun 17, 2025 16:03
--- NOTE | 2025-06-17 17:00 | NUR ---
MAG [employer]: REFUSED AT THIS TIME, STATED " I'VE ONLY HAD CLEAR LIQUIDS MEALS AND I KNOW MY BODY. LET ME HAVE REGULAR DINNER MEAL AND I'LL LET YOU KNOW IF I NEED IT."
--- NOTE | 2025-06-17 17:18 | PN ---
[facility] PROGRESS NOTE Date of Service: Jun 17, 2025 Time of Service: 17:06 SUBJECTIVE: This is a 70-year-old female with past medical history of chronic back pain, mitral valve prolapse, hypertension, Chronic obstructive pulmonary disease ,pulmonary fibrosis , h/o chronic cholecystitis with cholelithiasis, status post ERCP with removal of common bile duct stones (2014) who was brought by EMS to the ED with complaints of generalized body weakness, nausea, vomiting ,diarrhea and fall . The patient was found by her on the restroom floor following a fall, accordingly landing on her buttocks. She initially denied hitting her head or losing consciousness however upon further questioning she acknowledged having fainted but was unsure of exact sequence of events. She recalls regaining awareness while enroute to hospital in the ambulance. she complained of headache which resolved. Of note, she had a recent COVID-19 infection approximately 2 weeks back. Patient also uses supplemental oxygen at home via nasal cannula at 3 liter/minute. Vital signs upon ER arrival temperature 103.5, heart rate 122, blood pressure 164/95, saturation 98% on 3 L nasal cannula.Patient reports she has a small lesion in her head that has been there due to psoriasis she said. At the time of presentation she was alert, coherent , follows commands and moving all extremities. Patient denies chest pain, palpitation, shortness of breaths and dizziness. Latest vital signs temperature a 100.2, heart rate 86, respiration 23, blood pressure 115/54, saturation 95% on 3 L. patient also reports she is taking THC gummies for her chronic back pain. Labs: WBC 15 with negative left shift of neutrophils 93, hemoglobin 11, hematocrit 38, platelet count 161. Potassium 2.1, creatinine 1.1, GFR 54 gl ucose 177, lactic acid 4.8, troponin 442. Urinalysis consistent with urinary tract infection. ECG result revealed sinus tachycardia heart rate 110 with probable left ventricular hypertrophy with secondary repolarization abnormalities. Chest x-ray result revealed mild bibasilar airspace disease, likely atelectasis or infiltrates. Mild Chronic obstructive pulmonary disease. While in the ER patient received IV fluid resuscitation of NS 30 mL/kilogram over 3 hours, Tylenol 1000 mg p.o., potassium replacement, albuterol neb treatment, Rocephin 2 g IV and azithromycin IV. We will admit patient for further medical management. 06/13/2025: Patient is seen and evaluated at the bedside. She has severe sepsis secondary to urinary tract infection. Labs show improving lactic acid, improving WBCs, low magnesium, low platelets, abnormal liver function test, elevated troponin peaked at 680 . Her bilirubin is elevated at 7.3 And she report that she has been experiencing coffee colored watery stools for past2 days. She is also found to have a systolic murmur. ID, gastroenterology, pulmonology, Cardiology consults requested. As per the patient she has hand tremors now and complaints of back pain. We resumed her home [place] and Ambien. She is started on IV Zosyn and IV doxycycline. We will also request stool culture, C diff, echo, CT abdomen and pelvis. She is in no acute distress. 06/14/2025: Patient is seen and evaluated at the bedside. She has severe sepsis secondary to urinary tract infection. Labs show improving lactic acid, WBC, abnormal liver functions, low platelets, low potassium, normal magnesium, iron - 16, TIBC- 217, %sat-7.3, ferritin-180. So we replaced potassium and started iron sucrose. She also has a history of autoimmune disease for which she is My cophenolate Mofetil. ID saw the patient and they recommended to continue zosyn, pain management, antiemetic, monitor electrolytes and correct as needed, Continue DVT prophylaxis. Surgery saw the patient and they recommend MRI abdomen and MRCP recommended w/wo contrast, EGD with EUS in am. MRCP not feasible for this patient because of pain pump and prothesis. Urine culture showed gram negative rods. She is in no acute distress. As there is a history of fall, we ordered a CT scan of head. CT Abdomen and pelvis showed status post cholecystectomy, Dilated common bile duct measuring 1.2 cm. Mild central and peripheral dilatation of the biliary radicles,Mild hepatosplenomegaly. Simple hepatic cyst,Bosniak classification 1 right renal cyst,Small hiatus hernia, Small umbilical hernia containing a loop of small bowel. As there is history of MVP we ordered a echocardiogram and it showed LVEF is 55-60%, The left ventricular diastolic function is normal,The right ventricle is mildly dilated, The left atrium is severely dilated. 06/15/2025: Patient is seen and evaluated at the bedside. She has severe sepsis secondary to urinary tract infection. Labs show improving lactic acid, WBC, liver functions, potassium, low platelets, procalcitonin is 64.76, RBC is 3.4, Hb is 9, HCT is 29.2, plt is 106. Her neutrophil count is going down. EGD with EUS is done and there are stones in the common bile duct. ERCP is recommended and it will be done tomorrow. 06/16/2025: Patient is seen and evaluated at the bedside. She has severe sepsis secondary to urinary tract infection. Labs show improving labs. Today patient had ERCP and it showed choledocholithiasis, complete removal of stones is achieved by balloon extraction, and common bile duct was successfully dilated. After the procedure her symptoms resolved and she is feeling better. Cardiology saw this patient and they recommended to hold ASA, no statins due to elevated transaminases, no beta blockers, elevated troponin likely labor representative of type II ME and can evaluate with non invasive pharmacologic stress testing in outpatient setting following recovery of acute illness,recommend repeat CTA chest in 6 months for reassessment of AscAo aneurysm, blood pressure not adequately controlled, resumed home [place]-i lisinopril, to follow up with primary network operations manager in 2-3 weeks post discharge. Patient is in NAD. 06/17/2025: Patient is seen and evaluated at the bedside. She has no symptoms. She has severe sepsis secondary to urinary tract infection. Labs are improving. ID saw the patient and they recommended to continue Zosyn, doxycycline and SNF placement. She is okay for discharge but we are waiting for SNF placement. REVIEW OF SYSTEMS CONSTITUTIONAL: No fever. Denies night sweats. No unintentional weight loss reported. NEUROLOGICAL: Denies headache, amaurosis fugax, sensory deficit, vertigo/spinning sensation, gait abnormalities, or tremors. ENT: No hearing loss, otalgia, otorrhea, rhinitis, rhinorrhea, hoarseness, or sore throat. CARDIOVASCULAR: Denies any exertional angina, dyspnea on exertion, orthopnea, paroxysmal nocturnal dyspnea, palpitations, life-threatening arrhythmias, claudication. PULMONARY: Denies any shortness of breath, cough, phlegm/sputum, hemoptysis, pleuritic chest pain. SLEEP: Denies morning headaches, daytime somnolence or napping. Denies difficulty falling asleep, staying asleep, waking from sleep. Denies knowledge of snoring. GASTROINTESTINAL: No nausea, vomiting, abdominal pain. Denies any type of dysphagia to either liquids or solids. Denies pyrosis, early satiety, abdominal pain, constipation, or changes in stool consistency or caliber. Denies coffee-ground emesis, hematemesis, hematochezia, or melanotic stools. GENITOURINARY: Denies frequency, urgency, nocturia, hematuria or incontinence (Storage/Irritative symptoms.) Low urinary stream, straining to void, urinary intermittency or hesitancy, splitting of the voiding stream, terminal dribbling. ENDOCRINOLOGIC: Denies polyuria, polydipsia, polyphagia or heat/cold intolerances. Back pain + PHYSICAL EXAM GENERAL APPEARANCE: Morbidly obese female The patient is awake, alert, and oriented, mild distress NEUROLOGICAL: Cranial nerves II-XII grossly intact. Motor is 5/5 in bilateral upper and lower extremities proximal to distal. No sensory deficits. HEENT: Face is symmetric. Pupils are equal and reactive. Extraocular movements are intact. NECK: Supple. No JVD. No thyromegaly. No submental, submandibular, pre- /postauricular, occipital or supraclavicular lymphadenopathy. CHEST: Normal chest expansion. No Telemetry. LUNGS: Absence of any rales, rhonchi or any wheezing. CARDIOVASCULAR: Regular. S1 and S2 normal. Systolic murmur appreciable ABDOMEN: Soft, nontender, and nondistended. There is no rebound, voluntary guarding, or rigidity. : Deferred. No [place]. EXTREMITIES: Non-edematous and not cyanotic. No clubbing. Good capillary refill. SKIN: Ecchymotic patches seen Vital Signs (last 8hr) Date Time Temp Pulse Resp B/P (MAP) Pulse Ox O2 Delivery O2 Flow Rate FiO2 06/17/25 16:32 97.9 84 18 159/78 99 Nasal Cannula 2.0 06/17/25 12:06 97.9 72 18 142/73 97 Room Air 06/17/25 11:23 81 18 06/17/25 11:22 81 18 N/Cannula Low lpm 3.0 32 LABS: Laboratory: Test 06/17/25 03:41 06/16/25 06:40 Range/Units White Blood Count 7.6 4.8-10.8 K/uL Red Blood Count 4.30 4.00-5.50 MIL/uL Hemoglobin 11.2 L 12.0-16.0 g/dL Hematocrit 36.9 36-48 % Mean Corpuscular Volume 85.8 79-99 fL Mean Corpuscular Hemoglobin 26.0 L 27.0-33.0 pg Mean Corpuscular Hemoglobin Concent 30.4 L 32.0-36.0 g/dL Red Cell Distribution Width 15.5 11.0-15.5 % Platelet Count 144 # 130-400 K/uL Mean Platelet Volume 10.2 7.5-10.5 fL Immature Granulocyte % (Auto) 4.0 H 0-1 % Neutrophils (%) (Auto) 77.7 H 40.0-77.0 % Lymphocytes (%) (Auto) 13.5 L 21.0-51.0 % Monocytes (%) (Auto) 4.5 3.0-13.0 % Eosinophils (%) (Auto) 0.0 0.0-8.0 % Basophils (%) (Auto) 0.3 0.0-5.0 % Neutrophils # (Auto) 5.9 1.8-7.7 K/uL Lymphocytes # (Auto) 1.0 1.0-4.8 K/uL Monocytes # (Auto) 0.3 0.1-1.0 K/uL Eosinophils # (Auto) 0.00 0.00-0.70 K/uL Basophils # (Auto) 0.02 0.00-0.20 K/uL Absolute Immature Granulocyte (auto 0.30 0-1 K/uL Nucleated Red Blood Cells 0.0 0.0-0.19 % Sodium Level 138 136-145 mmol/L Potassium Level 4.4 3.5-5.1 mmol/L Chloride Level 102 101-111 mmol/L Carbon Dioxide Level 25 21-32 mmol/L Blood Urea Nitrogen 7 7-18 mg/dL Creatinine 0.5 0.5-1.0 mg/dL Glomerular Filtration Rate Calc 100 >90 mL/min Random Glucose 134 H 70-105 mg/dL Total Calcium 8.9 8.5-10.1 mg/dL Total Bilirubin 1.6 H 0.2-1.0 mg/dL Aspartate Amino Transf (AST/SGOT) 31 10-37 U/L Alanine Aminotransferase (ALT/SGPT) 70 12-78 U/L Alkaline Phosphatase 269 H 50-136 U/L Total Protein 6.6 6.0-8.3 g/dL Albumin 2.7 L 3.5-5.0 g/dL Procalcitonin 16.14 H 0.05-0.5 ng/mL Prothrombin Time 10.9 9.6-11.6 SEC Prothromb Time International Ratio 1.03 0.85-1.15 Current Medications Medications (Trade) Dose Ordered Sig/Abby Route PRN Reason Start Time Stop Time Status Last Admin Dose Admin Acetaminophen (TYLenol 325MG TAB) 650 mg Q4H PRN PO MILD PAIN (1-3) 06/13/25 03:00 07/13/25 02:59 Acetaminophen (TYLenol 325MG TAB) 650 mg Q6H PRN PO TEMPERATURE GREATER THAN 101.5 06/13/25 03:00 07/13/25 02:59 06/13/25 11:37 650 MG Acetaminophen/ Hydrocodone Bitart (NORco 10) 1 tab Q4H PRN PO MODERATE PAIN (4-6) 06/13/25 14:30 06/13/25 14:24 DC Acetaminophen/ Hydrocodone Bitart (NORco 10) 1 tab Q6H PRN PO MODERATE PAIN (4-6) 06/13/25 14:30 06/20/25 14:29 06/17/25 13:05 1 TAB Albuterol (DUOneb) 1 udvial [id number] 06/13/25 06:00 06/16/25 06:33 DC 06/16/25 01:48 1 UDVIAL Albuterol (DUOneb) 1 udvial [id number] IH 06/16/25 06:30 07/13/25 05:59 06/17/25 11:22 1 UDVIAL Amlodipine Besylate (NorvASC 5MG TAB) 5 mg DAILY PO 06/13/25 14:30 07/13/25 14:29 06/17/25 09:43 5 MG Azithromycin 250 ml @ 250 mls/hr Q24H IVPB 06/13/25 01:00 06/13/25 08:41 DC 06/13/25 02:06 250 MLS/HR Ceftriaxone Sodium (ROCEphine 1G INJ) 1 gm Q12H IV 06/14/25 01:00 06/13/25 08:41 DC Doxycycline Hyclate 250 ml @ 125 mls/hr Q12H IV 06/13/25 14:30 06/13/25 17:49 DC Doxycycline Hyclate 250 ml @ 125 mls/hr Q12H IV 06/13/25 20:00 06/23/25 19:59 06/17/25 09:42 125 MLS/HR Home Med (Home Medication) 10 each DAILY14 PO 06/14/25 14:00 06/14/25 10:33 DC Home Med (Home Medication) Thc 30MG Gummy: DOSE= 15 MG DAILY PO 06/15/25 09:00 07/15/25 08:59 06/17/25 06:09 1 EACH Home Med (Home Medication) Thc Gummy 10MG DAILY14 PO 06/14/25 14:00 07/14/25 13:59 06/17/25 13:05 1 EACH Lisinopril (Prinivil 5mg) 5 mg BID PO 06/15/25 21:00 07/15/25 20:59 06/17/25 09:43 5 MG Magnesium Sulfate 50 ml @ 0 mls/hr PROTOCOL PRN IV OTHER [SEE ORDER COMMENTS] 06/13/25 03:00 07/13/25 02:59 06/13/25 10:08 25 MLS/HR Magnesium Sulfate 50 ml @ 0 mls/hr PROTOCOL PRN IV hypomagnesemia 06/13/25 09:00 06/13/25 08:45 DC Metronidazole/ Sodium Chloride 100 ml @ 100 mls/hr Q8H IV 06/13/25 03:00 06/13/25 08:41 DC 06/13/25 04:01 100 MLS/HR Nitroglycerin (Nitrostat) 0.4 mg PROTOCOL PRN SL CHEST PAIN 06/13/25 03:00 07/13/25 02:59 Nystatin (NystOP 15 GM POWDER) apply to abdominal fold ... TID TP 06/14/25 21:00 07/14/25 20:59 06/17/25 13:05 1 APPL Ondansetron HCl (zoFRAN 4MG INJ) 4 mg Q6H PRN IV NAUSEA/VOMITING 06/13/25 03:00 07/13/25 02:59 Pantoprazole Sodium (PROTonix 40MG INJ) 40 mg DAILY IVP 06/13/25 09:00 07/13/25 08:59 06/17/25 09:43 40 MG Phenol (Sore Throat Reagan) 1 spry TID PRN PO SORE THROAT 06/16/25 15:30 07/16/25 15:29 Piperacillin Sod/ Tazobactam Sod (Zosyn 3.375gm+NS 50ml) 3.375 gm Q8H IV 06/13/25 09:00 06/23/25 08:59 06/17/25 17:01 3.375 GM Potassium Chloride 10 meq/ Sodium Chloride 50 ml @ 50 mls/hr PROTOCOL IV 06/13/25 00:30 06/13/25 00:32 DC Potassium Chloride 100 ml @ 100 mls/hr AD PRN IV POTASSIUM PROTOCOL 06/13/25 03:00 07/13/25 02:59 06/16/25 04:07 100 MLS/HR Potassium Chloride (K-Dur/Klor-Con 20meq) 20 meq AD PRN PO POTASSIUM PROTOCOL 06/13/25 03:00 07/13/25 02:59 06/16/25 13:08 20 MEQ Potassium Chloride (KCl 10% Elixir 20meq/15ml) 20 meq AD PRN PO POTASSIUM PROTOCOL 06/13/25 03:00 07/13/25 02:59 06/14/25 05:23 20 MEQ Sodium Chloride 1,000 ml @ 100 mls/hr Q10H IV 06/13/25 03:00 06/14/25 23:42 DC 06/14/25 13:41 100 MLS/HR Sodium Chloride 1,000 ml @ 100 mls/hr Q10H IV 06/15/25 00:00 07/15/25 00:00 06/17/25 09:47 100 MLS/HR Zolpidem Tartrate (AmbIEN) 10 mg HS PRN PO INSOMNIA 06/13/25 14:30 07/13/25 14:29 06/16/25 21:57 10 MG DIAGNOSTICS / RADIOLOGY: [ ] ASSESSMENT: Severe sepsis POA Acute urinary tract infection POA Acute gastroenteritis POA Syncope POA ? 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 in the setting of severe sepsis Status post fall at home POA lactic acidosis , - sepsis related liver dysfunction Blood culture growing gram negative rods and the final report is negative. started on IV Zosyn day 4 and IV Doxycycline day 4. Procalcitonin elevated at 162.3 ID saw the patient and they recommended to continue Zosyn, doxycycline and SNF placement. She is okay for discharge but we are waiting for SNF placement. Choledocholithiasis causing Biliary obstruction, POA Gastroenterology saw the patient and advised EGD and it showed stones in the common bile duct. ERCP is recommended and its done today. It showed choledocholithiasis and they are removed. Acute gastroenteritis POA Pending stool culture, c diff, stool occult blood test GI saw the patient and they recommended MRCP but she is not NPO for MRCP they put it on hold. Also GI recommended EGD with EUS in am. EGD with EUS was done and it showed stones in the common bile duct. ERCP is done today. It showed choledocholithiasis and they are removed. Hypokalemia POA Today her potassium is 3.5. Euthyroid sick syndrome in the setting of sepsis TSH 0.33, T3 1.34, T4 1.15 repeat thyroid levels in a month as outpatient Pulmonary fibrosis POA Acute on chronic hypoxemic respiratory failure on home O2 POA Patient on NC oxygen supplementation Iron deficiency anemia Gave IV iron sucrose because her iron is 16, transferrin saturation is 7.3. repeat anemia pannel in a month as outpatient Hypertension POA Continue lisinopril and amlodipine. Thoracic Ascending Aortic aneurysm,POA Cardiology saw the patient and they recommended repeat CTA in 6 months and follow up with primary network operations manager Dr. Moncada in 2 to 3 weeks. GI soft/[place] diet is started. Started on Protonix 40 mg IV daily for GI prophylaxis Replace electrolytes as needed per protocol. prn medication for fever,pain,cough , nausea and vomiting Neuro check q.4 hours per nursing Fall precautions DVT prophylaxis with SCD. ATTESTATION BY PHYSICIAN I have seen and examined the patient. I reviewed the documentation, medical decision making, and treatment plan as noted by the resident provider above. I agree with the findings and plan of care. Arslan Bah MD, AKSHAY MD Jun 17, 2025 17:17
[2025-06-18] VITALS (8 sets, daily range): BP systolic 144–167; BP diastolic 64–78; PULSE 71–78; RESP 18–20; TEMP 97.8–98.1; O2SAT 95–96
[2025-06-18 03:55] LABS: IMMATURE GRANULOCYTE ABSOLUTE 0.53 K/uL (0-1); NUCLEATED RED BLOOD CELLS 0.0 % (0.0-0.19); PLATELET COUNT (AUTO) 181 K/uL (130-400); RED BLOOD CELL COUNT(AUTO) 3.88 MIL/uL (4.00-5.50); RED CELL DISTRIBUTION WIDTH 15.9 % (11.0-15.5); WHITE BLOOD COUNT (AUTO) 9.4 K/uL (4.8-10.8)
[2025-06-18 04:15] LABS: ASPARTATE AMINOTRANSFERASE 35.0 U/L (10-37); CREATININE 0.6 mg/dL (0.5-1.0); GLOMERULAR FILTR. RATE CALC 96.0 mL/min (>90); GLUCOSE,RANDOM 112.0 mg/dL (70-105); SODIUM SERUM 141.0 mmol/L (136-145); TOTAL PROTEIN, SERUM 6.0 g/dL (6.0-8.3); UREA NITROGEN, BLOOD 13.0 mg/dL (7-18)
--- NOTE | 2025-06-18 08:07 | PN ---
GASTROENTEROLOGY PROGRESS NOTE Date of Visit: Jun 18, 2025 Time of Visit: 08:07 Events / Notes: [ ] Review of Systems: CONSTITUTIONAL: No malaise or change in sensation of wellbeing. ENMT: No rhinorrhea, otorrhea, sinus pain, ear ache. CARDIOVASCULAR: No angina, palpitations, orthopnea or paroxysmal dyspnea. RESPIRATORY: No SOB. GASTROINTESTINAL: No abdominal pain, nausea, vomiting, diarrhea, hematemesis, melena or change in the patient's habitual bowel movements consistency/number. GENITOURINARY: No dysuria, hematuria or change in bladder continence. MUSCULOSKELETAL: No new muscle pain or decrease in muscular strength. No new joint swelling, redness or tenderness. SKIN: No new rash. Physical Exam: GEN: Awake, alert, oriented in person, time and place, and in no acute distress. HEENT: No sinus tenderness. Tympanic membranes were not examined. No rhinorrhea. Oral pharyngeal mucosa is pink, moist and within normal limits. Neck is supple with no cervical lymphadenopathy, thyromegaly or JVD. CHEST: Inspection, palpation and percussion of the chest were unremarkable. Lung auscultation revealed normal breath sounds bilaterally. CARDIAC: PMI is within normal limits. Heart sounds are regular. Normal S1, S2. No gallop or murmur. ABD: Soft, non-tender and not distended. No peritoneal signs on palpation. No organomegaly. Normal bowel sounds. EXT: No cyanosis or clubbing. No edema. SKIN: Intact. No rashes. JOINTS: No evidence of synovitis or acute arthritis. NEURO: Alert and oriented to name, place and person. Cranial nerve examination is unremarkable. No focal motor deficits. Normal speech. Gait is normal. Strength is normal. Vital Signs (last 8hr) Date Time Temp Pulse Resp B/P (MAP) Pulse Ox O2 Delivery O2 Flow Rate FiO2 06/18/25 07:52 98.1 71 19 144/64 95 Nasal Cannula 2.0 06/18/25 06:30 74 18 N/Cannula Low lpm 3.0 32 06/18/25 06:27 74 18 06/18/25 04:00 97.9 75 20 155/78 97 Nasal Cannula 3.0 Laboratory: [ ] Laboratory: Test 06/18/25 03:33 06/17/25 03:41 Range/Units White Blood Count 9.4 4.8-10.8 K/uL Red Blood Count 3.88 L 4.00-5.50 MIL/uL Hemoglobin 10.1 L 12.0-16.0 g/dL Hematocrit 33.0 L 36-48 % Mean Corpuscular Volume 85.1 79-99 fL Mean Corpuscular Hemoglobin 26.0 L 27.0-33.0 pg Mean Corpuscular Hemoglobin Concent 30.6 L 32.0-36.0 g/dL Red Cell Distribution Width 15.9 H 11.0-15.5 % Platelet Count 181 # 130-400 K/uL Mean Platelet Volume 10.0 7.5-10.5 fL Immature Granulocyte % (Auto) 5.7 H 0-1 % Neutrophils (%) (Auto) 61.9 40.0-77.0 % Lymphocytes (%) (Auto) 23.1 21.0-51.0 % Monocytes (%) (Auto) 8.3 3.0-13.0 % Eosinophils (%) (Auto) 0.4 0.0-8.0 % Basophils (%) (Auto) 0.6 0.0-5.0 % Neutrophils # (Auto) 5.8 1.8-7.7 K/uL Lymphocytes # (Auto) 2.2 1.0-4.8 K/uL Monocytes # (Auto) 0.8 0.1-1.0 K/uL Eosinophils # (Auto) 0.04 0.00-0.70 K/uL Basophils # (Auto) 0.06 0.00-0.20 K/uL Absolute Immature Granulocyte (auto 0.53 0-1 K/uL Nucleated Red Blood Cells 0.0 0.0-0.19 % Sodium Level 141 136-145 mmol/L Potassium Level 3.4 L 3.5-5.1 mmol/L Chloride Level 105 101-111 mmol/L Carbon Dioxide Level 29 21-32 mmol/L Blood Urea Nitrogen 13 7-18 mg/dL Creatinine 0.6 0.5-1.0 mg/dL Glomerular Filtration Rate Calc 96 >90 mL/min Random Glucose 112 H 70-105 mg/dL Total Calcium 9.1 8.5-10.1 mg/dL Total Bilirubin 1.1 #H 0.2-1.0 mg/dL Aspartate Amino Transf (AST/SGOT) 35 10-37 U/L Alanine Aminotransferase (ALT/SGPT) 64 12-78 U/L Alkaline Phosphatase 203 H 50-136 U/L Total Protein 6.0 6.0-8.3 g/dL Albumin 2.7 L 3.5-5.0 g/dL Procalcitonin 16.14 H 0.05-0.5 ng/mL Current Medications Medications (Trade) Dose Ordered Sig/Abby Route PRN Reason Start Time Stop Time Status Last Admin Dose Admin Acetaminophen (TYLenol 325MG TAB) 650 mg Q4H PRN PO MILD PAIN (1-3) 06/13/25 03:00 07/13/25 02:59 Acetaminophen (TYLenol 325MG TAB) 650 mg Q6H PRN PO TEMPERATURE GREATER THAN 101.5 06/13/25 03:00 07/13/25 02:59 06/13/25 11:37 650 MG Acetaminophen/ Hydrocodone Bitart (NORco 10) 1 tab Q4H PRN PO MODERATE PAIN (4-6) 06/13/25 14:30 06/13/25 14:24 DC Acetaminophen/ Hydrocodone Bitart (NORco 10) 1 tab Q6H PRN PO MODERATE PAIN (4-6) 06/13/25 14:30 06/20/25 14:29 06/18/25 06:10 1 TAB Albuterol (DUOneb) 1 udvial [id number] IH 06/13/25 06:00 06/16/25 06:33 DC 06/16/25 01:48 1 UDVIAL Albuterol (DUOneb) 1 udvial [id number] IH 06/16/25 06:30 07/13/25 05:59 06/18/25 06:27 1 UDVIAL Amlodipine Besylate (NorvASC 5MG TAB) 5 mg DAILY PO 06/13/25 14:30 07/13/25 14:29 06/17/25 09:43 5 MG Azithromycin 250 ml @ 250 mls/hr Q24H IVPB 06/13/25 01:00 06/13/25 08:41 DC 06/13/25 02:06 250 MLS/HR Ceftriaxone Sodium (ROCEphine 1G INJ) 1 gm Q12H IV 06/14/25 01:00 06/13/25 08:41 DC Doxycycline Hyclate 250 ml @ 125 mls/hr Q12H IV 06/13/25 14:30 06/13/25 17:49 DC Doxycycline Hyclate 250 ml @ 125 mls/hr Q12H IV 06/13/25 20:00 06/23/25 19:59 06/17/25 19:36 125 MLS/HR Home Med (Home Medication) 10 each DAILY14 PO 06/14/25 14:00 06/14/25 10:33 DC Home Med (Home Medication) Thc 30MG Gummy: DOSE= 15 MG DAILY PO 06/15/25 09:00 07/15/25 08:59 06/18/25 06:10 1 EACH Home Med (Home Medication) Thc Gummy 10MG DAILY14 PO 06/14/25 14:00 07/14/25 13:59 06/17/25 13:05 1 EACH Lisinopril (Prinivil 5mg) 5 mg BID PO 06/15/25 21:00 07/15/25 20:59 06/17/25 21:48 5 MG Magnesium Sulfate 50 ml @ 0 mls/hr PROTOCOL PRN IV OTHER [SEE ORDER COMMENTS] 06/13/25 03:00 07/13/25 02:59 06/13/25 10:08 25 MLS/HR Magnesium Sulfate 50 ml @ 0 mls/hr PROTOCOL PRN IV hypomagnesemia 06/13/25 09:00 06/13/25 08:45 DC Metronidazole/ Sodium Chloride 100 ml @ 100 mls/hr Q8H IV 06/13/25 03:00 06/13/25 08:41 DC 06/13/25 04:01 100 MLS/HR Nitroglycerin (Nitrostat) 0.4 mg PROTOCOL PRN SL CHEST PAIN 06/13/25 03:00 07/13/25 02:59 Nystatin (NystOP 15 GM POWDER) apply to abdominal fold ... TID TP 06/14/25 21:00 07/14/25 20:59 06/17/25 21:48 1 APPL Ondansetron HCl (zoFRAN 4MG INJ) 4 mg Q6H PRN IV NAUSEA/VOMITING 06/13/25 03:00 07/13/25 02:59 Pantoprazole Sodium (PROTonix 40MG INJ) 40 mg DAILY IVP 06/13/25 09:00 07/13/25 08:59 06/17/25 09:43 40 MG Phenol (Sore Throat Stanley) 1 spry TID PRN PO SORE THROAT 06/16/25 15:30 07/16/25 15:29 Piperacillin Sod/ Tazobactam Sod (Zosyn 3.375gm+NS 50ml) 3.375 gm Q8H IV 06/13/25 09:00 06/23/25 08:59 06/18/25 02:10 3.375 GM Potassium Chloride 10 meq/ Sodium Chloride 50 ml @ 50 mls/hr PROTOCOL IV 06/13/25 00:30 06/13/25 00:32 DC Potassium Chloride 100 ml @ 100 mls/hr AD PRN IV POTASSIUM PROTOCOL 06/13/25 03:00 07/13/25 02:59 06/16/25 04:07 100 MLS/HR Potassium Chloride (K-Dur/Klor-Con 20meq) 20 meq AD PRN PO POTASSIUM PROTOCOL 06/13/25 03:00 07/13/25 02:59 06/18/25 05:50 20 MEQ Potassium Chloride (KCl 10% Elixir 20meq/15ml) 20 meq AD PRN PO POTASSIUM PROTOCOL 06/13/25 03:00 07/13/25 02:59 06/14/25 05:23 20 MEQ Sodium Chloride 1,000 ml @ 100 mls/hr Q10H IV 06/13/25 03:00 06/14/25 23:42 DC 06/14/25 13:41 100 MLS/HR Sodium Chloride 1,000 ml @ 100 mls/hr Q10H IV 06/15/25 00:00 07/15/25 00:00 06/17/25 21:48 100 MLS/HR Zolpidem Tartrate (AmbIEN) 10 mg HS PRN PO INSOMNIA 06/13/25 14:30 07/13/25 14:29 06/17/25 21:48 10 MG Diagnostics / Radiology: [COPY/PASTE HERE IF NO REPORTS PLEASE DELETE SECTION] Assessment: [Hyperbilirubinema Anemia Melena Elevated Transaminase CBD dilation Hypertension COPD ] Plan: ANGELA CASTELAN PERSONAL COUNSELOR Jun 18, 2025 08:07
--- NOTE | 2025-06-18 14:00 | NUR ---
OFFERED MAG CITRATE ONCE AGAIN BY DR. ROSE...PATIENT CONTINUES TO REFUSE .
--- NOTE | 2025-06-18 15:15 | NUR ---
REPORT CALLED TO SHONA SHORE AT [facility] AT [phone].
--- NOTE | 2025-06-18 16:00 | NUR ---
GIVEN DISMISSAL INSTRUCTIONS, VERBALIZED UNDERSTANDING. REMOVED TELE PACK. RIGHT UPPER ARM MIDLINE FLUSHED EACH PORT WITH 10 CC'S NS.
--- NOTE | 2025-06-18 16:20 | DS ---
Discharge Summary Hospital Course Summary: This is a 70-year-old female with past medical history of chronic back pain, mitral valve prolapse, hypertension, Chronic obstructive pulmonary disease ,pulmonary fibrosis , h/o chronic cholecystitis with cholelithiasis, status post ERCP with removal of common bile duct stones (2014) who was brought by EMS to the ED with complaints of generalized body weakness, nausea, vomiting ,diarrhea and fall . The patient was found by her on the restroom floor following a fall, accordingly landing on her buttocks. She initially denied hitting her head or losing consciousness however upon further questioning she acknowledged having fainted but was unsure of exact sequence of events. She recalls regaining awareness while enroute to hospital in the ambulance. she complained of headache which resolved. Of note, she had a recent COVID-19 infection approximately 2 weeks back. Patient also uses supplemental oxygen at home via nasal cannula at 3 liter/minute. Vital signs upon ER arrival temperature 103.5, heart rate 122, blood pressure 164/95, saturation 98% on 3 L nasal cannula.Patient reports she has a small lesion in her head that has been there due to psoriasis she said. At the time of presentation she was alert, coherent , follows commands and moving all extremities. Patient denies chest pain, palpitation, shortness of breaths and dizziness. Latest vital signs temperature a 100.2, heart rate 86, respiration 23, blood pressure 115/54, saturation 95% on 3 L. patient also reports she is taking THC gummies for her chronic back pain. Labs: WBC 15 with negative left shift of neutrophils 93, hemoglobin 11, hematocrit 38, platelet count 161. Potassium 2.1, creatinine 1.1, GFR 54 glucose 177, lactic acid 4.8, troponin 442. Urinalysis consistent with urinary tract infection. ECG result revealed sinus tachycardia heart rate 110 with probable left ventricular hypertrophy with secondary repolarization abnormalities. Chest x-ray result revealed mild bibasilar airspace disease, likely atelectasis or infiltrates. Mild Chronic obstructive pulmonary disease. While in the ER patient received IV fluid resuscitation of NS 30 mL/kilogram over 3 hours, Tylenol 1000 mg p.o., potassium replacement, albuterol neb treatment, Rocephin 2 g IV and azithromycin IV. We will admit patient for further medical management. 06/13/2025: Patient is seen and evaluated at the bedside. She has severe sepsis secondary to urinary tract infection. Labs show improving lactic acid, improving WBCs, low magnesium, low platelets, abnormal liver function test, elevated troponin peaked at 680 . Her bilirubin is elevated at 7.3 And she report that she has been experiencing coffee colored watery stools for past2 days. She is also found to have a systolic murmur. ID, gastroenterology, pulmonology, Cardiology consults requested. As per the patient she has hand tremors now and complaints of back pain. We resumed her home Council and Ambien. She is started on IV Zosyn and IV doxycycline. We will also request stool culture, C diff, echo, CT abdomen and pelvis. She is in no acute distress. 06/14/2025: Patient is seen and evaluated at the bedside. She has severe sepsis secondary to urinary tract infection. Labs show improving lactic acid, WBC, abnormal liver functions, low platelets, low potassium, normal magnesium, iron - 16, TIBC- 217, %sat-7.3, ferritin-180. So we replaced potassium and started iron sucrose. She also has a history of autoimmune disease for which she is Mycophen olate Mofetil. ID saw the patient and they recommended to continue zosyn, pain management, antiemetic, monitor electrolytes and correct as needed, Continue DVT prophylaxis. Surgery saw the patient and they recommend MRI abdomen and MRCP recommended w/wo contrast, EGD with EUS in am. MRCP not feasible for this patient because of pain pump and prothesis. Urine culture showed gram negative rods. She is in no acute distress. As there is a history of fall, we ordered a CT scan of head. CT Abdomen and pelvis showed status post cholecystectomy, Dilated common bile duct measuring 1.2 cm. Mild central and peripheral dilatation of the biliary radicles,Mild hepatosplenomegaly. Simple hepatic cyst,Bosniak classification 1 right renal cyst,Small hiatus hernia, Small umbilical hernia containing a loop of small bowel. As there is history of MVP we ordered a echocardiogram and it showed LVEF is 55-60%, The left ventricular diastolic function is normal,The right ventricle is mildly dilated, The left atrium is severely dilated. 06/15/2025: Patient is seen and evaluated at the bedside. She has severe sepsis secondary to urinary tract infection. Labs show improving lactic acid, WBC, liver functions, potassium, low platelets, procalcitonin is 64.76, RBC is 3.4, Hb is 9, HCT is 29.2, plt is 106. Her neutrophil count is going down. EGD with EUS is done and there are stones in the common bile duct. ERCP is recommended and it will be done tomorrow. 06/16/2025: Patient is seen and evaluated at the bedside. She has severe sepsis secondary to urinary tract infection. Labs show improving labs. Today patient had ERCP and it showed choledocholithiasis, complete removal of stones is achieved by balloon extraction, and common bile duct was successfully dilated. After the procedure her symptoms resolved and she is feeling better. Cardiology saw this patient and they recommended to hold ASA, no statins due to elevated transaminases, no beta blockers, elevated troponin likely sales representative livestock of type II [place] and can evaluate with non invasive pharmacologic stress testing in outpatient setting following recovery of acute illness,recommend repeat CTA chest in 6 months for reassessment of AscAo aneurysm, blood pressure not adequately controlled, resumed home [place]-i lisinopril, to follow up with primary insurance checker in 2-3 weeks post discharge. Patient is in NAD. 06/17/2025: Patient is seen and evaluated at the bedside. She has no symptoms. She has severe sepsis secondary to urinary tract infection. Labs are improving. ID saw the patient and they recommended to continue Zosyn, doxycycline and SNF placement. She is okay for discharge but we are waiting for SNF placement. 06/18/2025: Patient is seen and evaluated at the bedside. She has no symptoms. She has severe sepsis secondary to urinary tract infection. Labs are improving. SNF accepted the patient. Patient is medically stable. So we are discharging her. Research Coordinator(s): CONSULTATION REPORT Name: SHILPI SNELL Acct: [id number] MR: [id number] : 1955 Admit Date: 06/13/25 TRINITY LIMA MD [place] [address] [address] INFECTIOUS DISEASE CONSULTATION DATE OF SERVICE: 06/13/2025 REQUESTING PHYSICIAN: Felisa Orosco NP REASON FOR CONSULTATION: Gram-negative bacteremia and sepsis. HISTORY OF PRESENT ILLNESS: A 70-year-old female with obesity, hypertension, COPD, presented to the hospital with generalized body weakness and fall. The patient also has some nausea, vomiting and diarrhea. The patient has UTI and was found to have sepsis and subsequently on . T-max was 103.5, the patient's pulse was 122 and WBC of 15,000. Urinalysis positive. Blood culture growing Gram-negative hilda. The patient has been started on Zosyn. PAST MEDICAL HISTORY: * Chronic back pain. * Hypertension. * COPD. * Mitral valve prolapse. * Pulmonary fibrosis. * Obesity. PAST SURGICAL HISTORY: * Multiple back surgeries. * Left hip surgery. * Hysterectomy. ALLERGIES: No known drug allergies. CURRENT MEDICATIONS: Reviewed. SOCIAL HISTORY: No alcohol. No tobacco or illicit drug use. Lives with . FAMILY HISTORY: Noncontributory. REVIEW OF SYSTEMS: CONSTITUTIONAL: Positive for fever and chills. No weight loss or night sweats. EYES: No eye pain. No photophobia or diplopia. HENT: No sore throat. No rhinorrhea or earache. NECK: No neck pain or neck swelling. RESPIRATORY: No cough. No hemoptysis or pleuritic pain. CARDIOVASCULAR: No chest pain. No palpitation or orthopnea. GASTROINTESTINAL: Positive for nausea, vomiting, abdominal pain, diarrhea. GENITOURINARY: No dysuria, urgency, or urinary frequency. CENTRAL NERVOUS SYSTEM: No headache, dizziness, or slurred speech. PSYCHIATRY: No depression, no suicidal ideation. MUSCULOSKELETAL: Denies joint pain or joint swelling. PHYSICAL EXAMINATION: GENERAL: Elderly female, awake. VITAL SIGNS: Temperature 99.0, pulse 82, respiration 18, BP 141/70. EYES: No icterus. Pupils equal and reactive. HENT: No oral thrush seen. Moist oral mucosa. NECK: Supple. No JVD or thyromegaly. LUNGS: Good air entry. No rales, no rhonchi. CARDIOVASCULAR: S1 and S2 regular. No murmur heard. ABDOMEN: Obese, soft, nontender. Bowel sound is present. CENTRAL NERVOUS SYSTEM: Awake, alert, oriented x 3. No focal deficits. SKIN: No rashes, no itchiness. LYMPHATICS: No peripheral lymphadenopathy. BACK: No deformity, no pressure ulcer. LABORATORY DATA: Troponin 474. Sodium 144, potassium 3.7, BUN 7, creatinine 1.0. WBC 15.7, hemoglobin 10.5, platelet 116. Urinalysis, wbc is 15, leukocyte esterase 500. Blood culture growing Gram-negative hilda. Urine culture is pending. ASSESSMENT: A 70-year-old female with positive fever, chills, weakness. Current problems include: * Gram-negative sepsis. * Urinary tract infection. * Hypertension. * Obesity. * Anemia. * Leukocytosis. PLAN: * Continue Zosyn. * Follow up culture. * Continue pain management. * Continue antiemetic. * Monitor electrolytes and correct as needed. * Continue DVT prophylaxis. * . Thank you for allowing me to participate in the care of this patient. TID: [id number] RECEIPT: [id number] Electronically Signed by: Electronically Co-Signed by: CONSULTATION REPORT Name: SHILPI SNELL Acct: [id number] MR: [id number] : 1955 Admit Date: 06/13/25 JEMAL BAIG NP [address] [address] GASTROENTEROLOGY CONSULTATION NOTE Date of Consultation: Jun 14, 2025 Time of Consultation: 07:03 History of Present Illness: [ THIS IS A 70-YEAR-OLD female with past medical history of mitral valve prol apse hypertension, chronic obstructive pulmonary disease, pulmonary fibrosis, and chronic back pain who presented to the ER via EMS with complaints of generalized body weakness, nausea, vomiting, diarrhea, and a fall. Per ER report patient has some recollection of the events but then she reports that she does not remember what happened and remembers waking up when EMS was there on admission patient was found to have temperature of 103.5, WBC 15.1 HGB, 11.9,HCT 38.2, and platelets of 161. LFTs show elevated bilirubin of 7.3 on admission , AST of 216, ALT of 196, with albumin of 2.5. PT and INR are elevated. Abdominal ultrasound reveals a common bile duct of 1.0 cm postcholecystectomy status, hepatomegaly with hepatic steatosis, dilated left intrahepatic biliary radicles. We were consulted for melena, hyperbilirubinemia, and sepsis. ] Review of Systems: CONSTITUTIONAL: No malaise or change in sensation of wellbeing. ENMT: No rhinorrhea, otorrhea, sinus pain, ear ache. CARDIOVASCULAR: No angina, palpitations, orthopnea or paroxysmal dyspnea. RESPIRATORY: No SOB. GASTROINTESTINAL: No abdominal pain, nausea, vomiting, diarrhea, hematemesis, me jamila or change in the patient's habitual bowel movements consistency/number. GENITOURINARY: No dysuria, hematuria or change in bladder continence. MUSCULOSKELETAL: No new muscle pain or decrease in muscular strength. No new joint swelling, redness or tenderness. SKIN: No new rash. Past Medical History: PAST MEDICAL HISTORY: [ chronic back pain, mitral valve prolapse hypertension, Chronic obstructive pulmonary disease and pulmonary fibrosi PAST SURGICAL HISTORY: [Back surgery x8, left hip surgery x4 and hysterectomy ] PAST SOCIAL HISTORY: [ Patient lives . Patient admits taking HC gummy is for chronic back pain Patient denies alcohol tobacco and cocaine use] FAMILY HISTORY: [Asthma, Alzheimer's and cancer ] Coded Allergies: metoprolol (Unverified Allergy, Intermediate, 09/24/15) Coded Allergies: metoprolol (Unverified Allergy, Intermediate, 09/24/15) Physical Exam: GEN: Awake, alert, oriented in person, time and place, and in no acute distress. HEENT: No sinus tenderness. Tympanic membranes were not examined. No rhinorrhea. Oral pharyngeal mucosa is pink, moist and within normal limits. Neck is supple with no cervical lymphadenopathy, thyromegaly or JVD. CHEST: Inspection, palpation and percussion of the chest were unremarkable. Lung auscultation revealed normal breath sounds bilaterally. CARDIAC: PMI is within normal limits. Heart sounds are regular. Normal S1, S2. No gallop or murmur. ABD: Soft, non-tender and not distended. No peritoneal signs on palpation. No organomegaly. Normal bowel sounds. EXT: No cyanosis or clubbing. No edema. SKIN: Intact. No rashes. JOINTS: No evidence of synovitis or acute arthritis. NEURO: Alert and oriented to name, place and person. Cranial nerve examination is unremarkable. No focal motor deficits. Normal speech. Gait is normal. Strength is normal. Vital Sign (Last 24 Hours) 06/13/25 06/14/25 06/14/25 06/14/25 23:17 04:00 04:06 06:48 Temp 98.2 Pulse 73 Resp 18 B/P (MAP) 128/59 Pulse Ox 91 O2 Delivery N/Cannula Low lpm O2 Flow Rate 3.0 FiO2 32 Intake & Output (last 24hrs) 06/13/25 06/13/25 06/14/25 15:00 23:00 07:00 Intake Total 175 ml Output Total 1200 ml Balance -1025 ml Laboratory: [ ] Laboratory: Test 06/14/25 03:15 06/13/25 14:50 06/13/25 12:41 06/13/25 09:12 Range/Units White Blood Count 15.4 H 4.8-10.8 K/uL Red Blood Count 3.55 L 4.00-5.50 MIL/uL Hemoglobin 9.5 L 12.0-16.0 g/dL Hematocrit 30.0 L 36-48 % Mean Corpuscular Volume 84.5 79-99 fL Mean Corpuscular Hemoglobin 26.8 L 27.0-33.0 pg Mean Corpuscular Hemoglobin Concent 31.7 L 32.0-36.0 g/dL Red Cell Distribution Width 15.9 H 11.0-15.5 % Platelet Count 104 L 130-400 K/uL Mean Platelet Volume 10.6 H 7.5-10.5 fL Immature Granulocyte % (Auto) 1.6 H 0-1 % Neutrophils (%) (Auto) 84.2 H 40.0-77.0 % Lymphocytes (%) (Auto) 8.3 L 21.0-51.0 % Monocytes (%) (Auto) 5.4 3.0-13.0 % Eosinophils (%) (Auto) 0.2 0.0-8.0 % Basophils (%) (Auto) 0.3 0.0-5.0 % Neutrophils # (Auto) 13.0 H 1.8-7.7 K/uL Lymphocytes # (Auto) 1.3 1.0-4.8 K/uL Monocytes # (Auto) 0.8 0.1-1.0 K/uL Eosinophils # (Auto) 0.03 0.00-0.70 K/uL Basophils # (Auto) 0.04 0.00-0.20 K/uL Absolute Immature Granulocyte (auto 0.25 0-1 K/uL Nucleated Red Blood Cells 0.0 0.0-0.19 % Reticulocyte Count (auto) 1.89126 0.42-2.23 % Immature Reticulocyte Fraction 16.10 H 0.18-0.48 % Sodium Level 141 136-145 mmol/L Potassium Level 2.8 *L 3.5-5.1 mmol/L Chloride Level 107 101-111 mmol/L Carbon Dioxide Level 29 21-32 mmol/L Blood Urea Nitrogen 9 7-18 mg/dL Creatinine 0.8 0.5-1.0 mg/dL Glomerular Filtration Rate Calc 79 >90 mL/min Random Glucose 84 70-105 mg/dL Lactic Acid Level 1.3 0.8-2.5 mmol/L Total Calcium 7.7 L 8.5-10.1 mg/dL Magnesium Level 2.30 1.80-2.40 mg/dL Iron Level 16 L 50-170 mcg/dL Total Iron Binding Capacity 217 L 250-450 mcg/dL Percent Iron Saturation 7.3 L 22-44 % Ferritin 180 H 15-150 ng/mL Total Bilirubin 4.0 #H 0.2-1.0 mg/dL Aspartate Amino Transf (AST/SGOT) 99 H 10-37 U/L Alanine Aminotransferase (ALT/SGPT) 135 #H 12-78 U/L Alkaline Phosphatase 273 H 50-136 U/L Total Protein 5.3 L 6.0-8.3 g/dL Albumin 2.3 L 3.5-5.0 g/dL Vitamin B12 Level 345 193-986 pg/mL Ammonia < 10 L 11-32 umol/L Troponin I High Sensitivity 320 *H 4-50 ng/L Procalcitonin 162.23 H 0.05-0.5 ng/mL Free Thyroxine (T4) Direct 1.15 0.76-1.46 ng/dL Free Triiodothyronine (T3) pg/mL 1.34 L 2.18-3.98 pg/mL Prothrombin Time 13.2 H 9.6-11.6 SEC Prothromb Time International Ratio 1.28 H 0.85-1.15 Activated Partial Thromboplast Time 32.2 26.3-35.5 SEC Test 06/13/25 06:11 06/13/25 05:12 06/13/25 01:51 06/12/25 23:37 Range/Units SARS-CoV-2 Antigen (Rapid) PRESUMPTIVE NEGATIVE NEGATIVE Hemoglobin A1c 5.5 4.0-6.0 % Estimated Average Glucose (eAG) 111 70-126 mg/dL B-Type Natriuretic Peptide 580 H 0-100 pg/mL Triglycerides Level 82 30-200 mg/dL Cholesterol Level 162 <200 mg/dL LDL Cholesterol 106 H 0-99 mg/dL HDL Cholesterol 50 35-85 mg/dL Thyroid Stimulating Hormone (TSH) 0.33 L 0.36-3.74 uIU/mL Urine Color YELLOW YELLOW Urine Appearance CLOUDY H CLEAR Urine pH 6.0 5.0-8.0 Urine Specific [place] 1.008 1.001-1.031 Urine Protein 30 H NEGATIVE mg/dL Urine Glucose (UA) 30 H NEGATIVE mg/dL Urine Ketones NEGATIVE NEGATIVE mg/dL Urine Occult Blood MODERATE H NEGATIVE Urine Nitrate NEGATIVE NEGATIVE Urine Bilirubin NEGATIVE NEGATIVE mg/dL Urine Urobilinogen 0.2 0.2-1.0 mg/dL Urine Leukocyte Esterase 500 H NEGATIVE Amadou/uL Urine RBC 2-5 H 0-1 /HPF Urine WBC 26-50 H 0-1 /HPF Urine Squamous Epithelial Cells MANY 0-2 /HPF Urine Non-Squamous Epithelial Cells 1 0-2 /HPF Urine Other Crystals (Auto) 8 None Seen /HPF Urine Bacteria MOD None Seen /HPF Urine Opiates Screen POSITIVE H NEGATIVE Urine Barbiturates Screen NEGATIVE NEGATIVE Urine Phencyclidine Screen NEGATIVE NEGATIVE Urine Amphetamines Screen NEGATIVE NEGATIVE Urine Benzodiazepines Screen NEGATIVE NEGATIVE Urine Cocaine Screen NEGATIVE NEGATIVE Urine Marijuana (THC) Screen POSITIVE H NEGATIVE White Cell Morphology Comment See comments Total Creatine Kinase 78 21-232 U/L Current Medications Medications (Trade) Dose Ordered Sig/Abby Route PRN Reason Start Time Stop Time Status Last Admin Dose Admin Acetaminophen (TYLenol 325MG TAB) 650 mg Q4H PRN PO MILD PAIN (1-3) 06/13/25 03:00 07/13/25 02:59 Acetaminophen (TYLenol 325MG TAB) 650 mg Q6H PRN PO TEMPERATURE GREATER THAN 101.5 06/13/25 03:00 07/13/25 02:59 06/13/25 11:37 650 MG Acetaminophen/ Hydrocodone Bitart (NORco 10) 1 tab Q4H PRN PO MODERATE PAIN (4-6) 06/13/25 14:30 06/13/25 14:24 DC Acetaminophen/ Hydrocodone Bitart (NORco 10) 1 tab Q6H PRN PO MODERATE PAIN (4-6) 06/13/25 14:30 06/20/25 14:29 06/14/25 03:46 1 TAB Albuterol (DUOneb) 1 udvial [id number] IH 06/13/25 06:00 07/13/25 05:59 06/14/25 06:44 1 UDVIAL Amlodipine Besylate (NorvASC 5MG TAB) 5 mg DAILY PO 06/13/25 14:30 07/13/25 14:29 06/13/25 17:51 5 MG Azithromycin 250 ml @ 250 mls/hr Q24H IVPB 06/13/25 01:00 06/13/25 08:41 DC 06/13/25 02:06 250 MLS/HR Ceftriaxone Sodium (ROCEphine 1G INJ) 1 gm Q12H IV 06/14/25 01:00 06/13/25 08:41 DC Doxycycline Hyclate 250 ml @ 125 mls/hr Q12H IV 06/13/25 14:30 06/13/25 17:49 DC Doxycycline Hyclate 250 ml @ 125 mls/hr Q12H IV 06/13/25 20:00 06/23/25 19:59 06/13/25 21:26 125 MLS/HR Magnesium Sulfate 50 ml @ 0 mls/hr PROTOCOL PRN IV OTHER [SEE ORDER COMMENTS] 06/13/25 03:00 07/13/25 02:59 06/13/25 10:08 25 MLS/HR Magnesium Sulfate 50 ml @ 0 mls/hr PROTOCOL PRN IV hypomagnesemia 06/13/25 09:00 06/13/25 08:45 DC Metronidazole/ Sodium Chloride 100 ml @ 100 mls/hr Q8H IV 06/13/25 03:00 06/13/25 08:41 DC 06/13/25 04:01 100 MLS/HR Nitroglycerin (Nitrostat) 0.4 mg PROTOCOL PRN SL CHEST PAIN 06/13/25 03:00 07/13/25 02:59 Ondansetron HCl (zoFRAN 4MG INJ) 4 mg Q6H PRN IV NAUSEA/VOMITING 06/13/25 03:00 07/13/25 02:59 Pantoprazole Sodium (PROTonix 40MG INJ) 40 mg DAILY IVP 06/13/25 09:00 07/13/25 08:59 06/13/25 10:05 40 MG Piperacillin Sod/ Tazobactam Sod (Zosyn 3.375gm+NS 50ml) 3.375 gm Q8H IV 06/13/25 09:00 06/23/25 08:59 06/14/25 00:37 3.375 GM Potassium Chloride 10 meq/ Sodium Chloride 50 ml @ 50 mls/hr PROTOCOL IV 06/13/25 00:30 06/13/25 00:32 DC Potassium Chloride 100 ml @ 100 mls/hr AD PRN IV POTASSIUM PROTOCOL 06/13/25 03:00 07/13/25 02:59 Potassium Chloride (K-Dur/Klor-Con 20meq) 20 meq AD PRN PO POTASSIUM PROTOCOL 06/13/25 03:00 07/13/25 02:59 Potassium Chloride (KCl 10% Elixir 20meq/15ml) 20 meq AD PRN PO POTASSIUM PROTOCOL 06/13/25 03:00 07/13/25 02:59 06/14/25 05:23 20 MEQ Sodium Chloride 1,000 ml @ 100 mls/hr Q10H IV 06/13/25 03:00 07/13/25 02:59 06/14/25 00:38 100 MLS/HR Zolpidem Tartrate (AmbIEN) 10 mg HS PRN PO INSOMNIA 06/13/25 14:30 07/13/25 14:29 06/13/25 21:40 10 MG Diagnostics / Radiology: [COPY/PASTE HERE IF NO REPORTS PLEASE DELETE SECTION] Assessment: [Hyperbilirubinema Anemia Melena Elevated Transaminase CBD dilation Hypertension COPD ] Plan: Case Discussed with Dr. Garcia [1. Recommend MRI abdomen and MRCP recommended w/wo contrast. 2. Plan for EGD with EUS in am 3. Keep NPO 4. Trend HGB 5. Trend LFTs 6. Please call with questions, concerns, and change in clinical status Thank you for allowing us to be part of this patient's care.] JEMAL BAIG NP Jun 14, 2025 07:03 Electronically Signed by: JEMAL BAIG NP06/14/252 Electronically Co-Signed by: CONSULTATION REPORT Name: ALISSHILPI Smita Acct: [id number] MR: [id number] : 1955 Admit Date: 06/13/25 DISHAZOLTAN Roz [facility] [address] [place] [address] [facility] CARDIOLOGY CONSULTATION REPORT Cardiology consultation note dictated for Yazmin Winkler MD Date Patient Seen: Jun 14, 2025 Requesting Physician: MAGGY Flores Reason for Consultation: Elevated troponin History of Present Illness: This is a 70-year-old female with a past medical history of hypertension, self- reported mitral valve prolapse, 2D echo on 02/05/2025 with an EF of 65-70%, normal LV segmental wall motion, moderate to severe left atrial lodgement, venous insufficiency with Clarivein procedure of the left leg in 08/2019 and right leg in 10/2019, venous stent to the left common iliac into the left external iliac in 05/2021, 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 Manuel Gambino, on immunosuppressant CellCept, occipital neuralgia, migraines, fibromyalgia, chronic pain syndrome, COPD, pulmonary fibrosis, ARDS on chronic home O2 at 2-3 L via nasal cannula secondary to COVID, history of left lower extremity DVT in 2021 secondary to COVID, chronic back pain, history of skin cancer with resection, and THC gummies who presented to the ED with complaints of fever, generalized body weakness, nausea, vomiting, and diarrhea of 1 day in duration and is status post fall. Temperature on arrival 103.5 F, WBCs elevated at 15.1, and lactic acid in increased at 4.8. Urinalysis was positive with culture pending. Blood cultures drawn on 06/12/2025 demonstrated 2/2 sets with gram-negative rods. Potassium of 2.[address] of the chest on 06/14/2025 demonstrated an ascending thoracic aortic aneurysm measuring 4.5 cm. Abdominal ultrasound on 06/14/2025 demonstrated hepatomegaly with hepatic steatosis and a dilated common bile duct. CT of the abdomen on 06/13/2025 demonstrating no acute process but mild hepatosplenomegaly, simple hepatic cyst, right renal cysts, small hiatal hernia, and small umbilical hernia containing a small loop of small bowel. MRCP is pending. Stool studies are pending. Cardiology has been consulted for elevated troponin. The patient states she be galina to have nausea, vomiting, and diarrhea since Saturday 06/09. The patient recalls having explosive diarrhea on 06/12 and waking up on the floor with EMS standing over her. She states she had loss of consciousness and her thinks she hit her head on the shower door. We will obtain a CT of the head to evaluate for bleeding. Troponin of 442, 680, 474, and 320. The patient currently denies chest pain, chest pressure, palpitations, dizziness, or shortness of breath. She denies a history of angina or IL. EKG demonstrated sinus tachycardia with a heart rate of 110bpm with ST depressions in V2-6. Past Medical History: As per HPI and summarized below Past Surgical History: Cholecystectomy Hip surgery Back surgery x7 Foot surgery Hysterectomy Family History: The patient's daughter in 2019 of the long QT syndrome at 41 years of age. Social History: The patient lives with her . Habits: The patient denies alcohol or tobacco use but does admit to using THC gummies fo r pain control. Home Meds: THC 15mg gummy daily Tylenol No. 3 1-2 tabs every 6 hours p.r.n. pain Acetaminophen with hydrocodone 10-325 mg,1 tab q.i.d. p.r.n. pain Lisinopril 10 mg daily Skelaxin 800 mg t.i.d. p.r.n. Ambien 10 mg q.h.s. CellCept 500 mg tabs Current Meds: Medications Dose Ordered Sig/Abby Start Time Stop Time Status Last Admin Acetaminophen 650 mg Q6H PRN 06/13/25 03:00 07/13/25 02:59 06/13/25 11:37 Acetaminophen 650 mg Q4H PRN 06/13/25 03:00 07/13/25 02:59 Ondansetron HCl 4 mg Q6H PRN 06/13/25 03:00 07/13/25 02:59 Nitroglycerin 0.4 mg PROTOCOL PRN 06/13/25 03:00 07/13/25 02:59 Albuterol 1 udvial [id number] 06/13/25 06:00 07/13/25 05:59 06/14/25 06:44 Sodium Chloride 1,000 ml @ 100 mls/hr Q10H 06/13/25 03:00 07/13/25 02:59 06/14/25 00:38 Pantoprazole Sodium 40 mg DAILY 06/13/25 09:00 07/13/25 08:59 06/14/25 09:43 Magnesium Sulfate 50 ml @ 0 mls/hr PROTOCOL PRN 06/13/25 03:00 07/13/25 02:59 06/13/25 10:08 Potassium Chloride 100 ml @ 100 mls/hr AD PRN 06/13/25 03:00 07/13/25 02:59 Potassium Chloride 20 meq AD PRN 06/13/25 03:00 07/13/25 02:59 06/14/25 05:23 Potassium Chloride 20 meq AD PRN 06/13/25 03:00 07/13/25 02:59 Piperacillin Sod/ Tazobactam Sod 3.375 gm Q8H 06/13/25 09:00 06/23/25 08:59 06/14/25 00:37 Zolpidem Tartrate 10 mg HS PRN 06/13/25 14:30 07/13/25 14:29 06/13/25 21:40 Acetaminophen/ Hydrocodone Bitart 1 tab Q6H PRN 06/13/25 14:30 06/20/25 14:29 06/14/25 03:46 Amlodipine Besylate 5 mg DAILY 06/13/25 14:30 07/13/25 14:29 06/14/25 09:43 Doxycycline Hyclate 250 ml @ 125 mls/hr Q12H 06/13/25 20:00 06/23/25 19:59 06/14/25 09:44 Review of Systems: CONST: No fever, fatigue, or weight changes. EYES: No recent vision problems. ENT: No congestion, ear pain, or sore throat. C/V: No chest pain, palpitations, or edema. RESP: No cough, congestion, wheezing or shortness of breath. GI: No abdominal pain, nausea, vomiting, constipation, or diarrhea. : No incontinence or dysuria. SKIN: No rash. NEURO: No headache, focal numbness or weakness, dizziness, or seizures. PSYCH: No depression or anxiety. HEME: No abnormal bruising or bleeding. LYMPH: No swollen glands. Physical Examination: GENERAL: No acute distress. HEAD: Normal with no signs of head trauma. EYES: PERRLA, EOMI, conjunctiva and sclera normal. ENT: Hearing grossly intact, normal oropharynx. NECK: Supple without JVD. There is no tenderness, lymphadenopathy, or masses. No thyromegaly. Normal carotid upstrokes without bruits. LUNGS: Clear breath sounds bilaterally. No wheezes, or rhonchi. HEART: Normal rate and rhythm. Normal S1 and S2 without murmurs, gallop or rub. VASC: Peripheral pulses +2 bilaterally. ABD: Bowel sounds normal, soft, nontender, no masses, no organomegaly. No audible bruits. : Not examined LYMPH: No lymphadenopathy noted. EXT: No clubbing, cyanosis or edema. SKIN: No rashes or lesions noted. NEURO: Awake, alert, and oriented x3. No focal sensory or strength deficits noted. Vital Signs (last 8hr) Date Time Temp Pulse Resp B/P (MAP) Pulse Ox O2 Delivery O2 Flow Rate FiO2 06/14/25 08:33 97.9 75 18 106/51 93 Room Air 06/14/25 06:48 73 18 N/Cannula Low lpm 3.0 06/14/25 06:47 73 18 06/14/25 04:06 86 18 128/59 91 Nasal Cannula 2.0 06/14/25 04:03 80 18 104/59 92 Nasal Cannula 2.0 06/14/25 04:00 98.2 76 18 107/55 93 Room Air Laboratory: Hematology Labs: Test 06/14/25 03:15 06/12/25 23:37 Range/Units White Blood Count 15.4 H 4.8-10.8 K/uL Red Blood Count 3.55 L 4.00-5.50 MIL/uL Hemoglobin 9.5 L 12.0-16.0 g/dL Hematocrit 30.0 L 36-48 % Mean Corpuscular Volume 84.5 79-99 fL Mean Corpuscular Hemoglobin 26.8 L 27.0-33.0 pg Mean Corpuscular Hemoglobin Concent 31.7 L 32.0-36.0 g/dL Red Cell Distribution Width 15.9 H 11.0-15.5 % Platelet Count 104 L 130-400 K/uL Mean Platelet Volume 10.6 H 7.5-10.5 fL Immature Granulocyte % (Auto) 1.6 H 0-1 % Neutrophils (%) (Auto) 84.2 H 40.0-77.0 % Lymphocytes (%) (Auto) 8.3 L 21.0-51.0 % Monocytes (%) (Auto) 5.4 3.0-13.0 % Eosinophils (%) (Auto) 0.2 0.0-8.0 % Basophils (%) (Auto) 0.3 0.0-5.0 % Neutrophils # (Auto) 13.0 H 1.8-7.7 K/uL Lymphocytes # (Auto) 1.3 1.0-4.8 K/uL Monocytes # (Auto) 0.8 0.1-1.0 K/uL Eosinophils # (Auto) 0.03 0.00-0.70 K/uL Basophils # (Auto) 0.04 0.00-0.20 K/uL Absolute Immature Granulocyte (auto 0.25 0-1 K/uL Nucleated Red Blood Cells 0.0 0.0-0.19 % Reticulocyte Count (auto) 1.77465 0.42-2.23 % Immature Reticulocyte Fraction 16.10 H 0.18-0.48 % White Cell Morphology Comment See comments Chemistry Labs: Test 06/14/25 03:15 06/13/25 14:50 06/13/25 12:41 06/13/25 05:12 Range/Units Sodium Level 141 136-145 mmol/L Potassium Level 2.8 *L 3.5-5.1 mmol/L Chloride Level 107 101-111 mmol/L Carbon Dioxide Level 29 21-32 mmol/L Blood Urea Nitrogen 9 7-18 mg/dL Creatinine 0.8 0.5-1.0 mg/dL Glomerular Filtration Rate Calc 79 >90 mL/min Random Glucose 84 70-105 mg/dL Lactic Acid Level 1.3 0.8-2.5 mmol/L Total Calcium 7.7 L 8.5-10.1 mg/dL Magnesium Level 2.30 1.80-2.40 mg/dL Iron Level 16 L 50-170 mcg/dL Total Iron Binding Capacity 217 L 250-450 mcg/dL Percent Iron Saturation 7.3 L 22-44 % Ferritin 180 H 15-150 ng/mL Total Bilirubin 4.0 #H 0.2-1.0 mg/dL Aspartate Amino Transf (AST/SGOT) 99 H 10-37 U/L Alanine Aminotransferase (ALT/SGPT) 135 #H 12-78 U/L Alkaline Phosphatase 273 H 50-136 U/L Total Protein 5.3 L 6.0-8.3 g/dL Albumin 2.3 L 3.5-5.0 g/dL Vitamin B12 Level 345 193-986 pg/mL Ammonia < 10 L 11-32 umol/L Troponin I High Sensitivity 320 *H 4-50 ng/L Procalcitonin 162.23 H 0.05-0.5 ng/mL Free Thyroxine (T4) Direct 1.15 0.76-1.46 ng/dL Free Triiodothyronine (T3) pg/mL 1.34 L 2.18-3.98 pg/mL Hemoglobin A1c 5.5 4.0-6.0 % Estimated Average Glucose (eAG) 111 70-126 mg/dL B-Type Natriuretic Peptide 580 H 0-100 pg/mL Triglycerides Level 82 30-200 mg/dL Cholesterol Level 162 <200 mg/dL LDL Cholesterol 106 H 0-99 mg/dL HDL Cholesterol 50 35-85 mg/dL Thyroid Stimulating Hormone (TSH) 0.33 L 0.36-3.74 uIU/mL Test 06/12/25 23:37 Range/Units Total Creatine Kinase 78 21-232 U/L Coagulation Labs: Test 06/13/25 09:12 Range/Units Prothrombin Time 13.2 H 9.6-11.6 SEC Prothromb Time International Ratio 1.28 H 0.85-1.15 Activated Partial Thromboplast Time 32.2 26.3-35.5 SEC Diagnostics / Radiology: Impression and Plan: N/V/D/Fever Hypokalemia Blood cultures drawn on 06/12/2025 demonstrated 2/2 sets with gram-negative rods UTI Syncope NSTEMI, Type II [place] CT of the chest on 06/14/2025 demonstrated an ascending thoracic aortic aneurysm measuring 4.5 cm. 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 Manuel Gambino, on immunosuppressant CellCept Occipital neuralgia, migraines, fibromyalgia, chronic back pain, chronic pain syndrome COPD, pulmonary fibrosis, ARDS on chronic home O2 at 2-3 L via nasal cannula secondary to COVID History of left lower extremity DVT in 2021 secondary to COVID History of skin cancer with resection Use of THC gummies Allergy to Metoprolol NSTEMI, Type II IL Troponin of 442, 680, 474, and 320 EKG demonstrated sinus tachycardia with a heart rate of 110bpm with ST depressions in V2-6. -Start Aspirin 81mg daily. -Hold off on Statin due to elevated LFTs -Plan for Lexiscan stress test in 72 hours -Further recommendations pending echocardiogram results Syncope -Obtained to CT of the head to evaluate for bleed Ascending thoracic aortic aneurysm CT of the chest on 06/14/2025 demonstrated an ascending thoracic aortic aneurysm measuring 4.5 cm. -Recommend strict blood pressure control to <140/80mmHg. -Allergy to Metoprolol (rash) therefore hold on beta blockers -Repeat CTA chest in 6 months ZOLTAN GAUTHIER [facility] Jun 14, 2025 10:16 YAZMIN WINKLER DO Jun 14, 2025 15:57 Electronically Signed by: ZOLTAN GAUTHIER [facility]06/14/25 1500 Electronically Co-Signed by: YAZMIN WINKLER 06/14/25 4727 CONSULTATION REPORT Name: SHILPI SNELL Acct: [id number] MR: [id number] : 1955 Admit Date: 06/13/25 CARMEN LEWIS [address] [address] [facility] CONSULTATION NOTE Date Patient Seen: Jun 14, 2025 Time of Visit: 12:36 Supervising Physician: [Dr Jean-Paul Paula ] Reason for Consultation: [ Pulmonary consultation ] Primary Care Physician: [ ] Outpatient Specialists: [ ] Inpatient Consults: [ ] ASSESSMENT: Severe sepsis POA Acute urinary tract infection POA Acute gastroenteritis POA Status post fall at home POA Syncope POA Hypokalemia POA Acute kidney injury POA Elevated troponin in the setting of sepsis POA Chronic back pain POA Chronic anemia POA Headache POA Hypertension POA Hyperglycemia POA Mild Chronic obstructive pulmonary disease POA Recent COVID infection POA Pulmonary fibrosis POA Acute on chronic hypoxemic respiratory failure on home O2 POA HPI: 70-year-old female with past medical history of chronic back pain, mitral valve prolapse hypertension, Chronic obstructive pulmonary disease and pulmonary fibrosis who was brought by EMS to the ED for complaints of generalized body weakness, nausea, vomiting ,diarrhea and fall .As per ER report patient was found by her at the restroom ,following a fall and she landed on her buttocks and patient denies hitting her head nor passing out and called the ambulance.As per patient 's report she fainted and did not know what happened when she woke up the ambulance was already taking her out of the house she said.Patient reports she passed out and when she woke up she recognized her butdid not remember what happened .Patient initially complained of headache as per primary nurse. Patient states she had covid 2 weeks ago and she uses oxygen at home 3L/NC. Vital signs upon ER arrival temperature 103.5, heart rate 122, blood pressure 164/95, saturation 98% on 3 L nasal cannula. patient also reports she is taking THC gummies for her chronic back pain. Labs: WBC 15 Potassium 2.1, lactic acid 4.8, troponin 442. Urinalysis consistent with urinary tract infection. ECG result revealed sinus tachycardia heart rate 110. Chest x-ray result revealed mild bibasilar airspace disease, likely atelectasis or infiltrates. Mild Chronic obstructive pulmonary disease. PLAN: CT head pending Cards consult - pending ECHO Tele Abx, follow cultures, Doxy, Zosyn FOllow GI recs, MRCP held due to pain stimulator for back Follow Hgb, no bleeding and Hgb stable Electrolyte replacement PAST MEDICAL HX: see above PAST SURGICAL HX: noncontributory SOCIAL HISTORY: No tobacco, ETOH, or illicit drug use Coded Allergies: metoprolol (Unverified Allergy, Intermediate, 09/24/15) REVIEW OF SYSTEMS: 12 point ROS reviewed with patient. Pertinent positives mentioned above. Otherwise negative. PHYSICAL EXAM: GENERAL: alert, weak, awake oriented x 3 HEENT: EOMI, Sclera non icteric, moist mucosa NECK: Supple, no JVD, trachea midline LUNGS: Clear breath sounds bilaterally. No wheezes HEART: Regular rate and rhythm. Normal S1 and S2, without murmurs ABD: Abdomen soft, nontender. Bowel sounds present EXT: No clubbing cyanosis or edema NEURO: Alert and oriented to person, follows commands Vital Signs (last 8hr) Date Time Temp Pulse Resp B/P (MAP) Pulse Ox O2 Delivery O2 Flow Rate FiO2 06/14/25 12:27 98.2 75 18 135/73 93 Room Air 06/14/25 11:01 79 18 06/14/25 08:33 97.9 75 18 106/51 93 Room Air 06/14/25 06:48 73 18 N/Cannula Low lpm 3.0 06/14/25 06:47 73 18 LABS: Hematology Labs: Test 06/14/25 03:15 06/12/25 23:37 Range/Units White Blood Count 15.4 H 4.8-10.8 K/uL Red Blood Count 3.55 L 4.00-5.50 MIL/uL Hemoglobin 9.5 L 12.0-16.0 g/dL Hematocrit 30.0 L 36-48 % Mean Corpuscular Volume 84.5 79-99 fL Mean Corpuscular Hemoglobin 26.8 L 27.0-33.0 pg Mean Corpuscular Hemoglobin Concent 31.7 L 32.0-36.0 g/dL Red Cell Distribution Width 15.9 H 11.0-15.5 % Platelet Count 104 L 130-400 K/uL Mean Platelet Volume 10.6 H 7.5-10.5 fL Immature Granulocyte % (Auto) 1.6 H 0-1 % Neutrophils (%) (Auto) 84.2 H 40.0-77.0 % Lymphocytes (%) (Auto) 8.3 L 21.0-51.0 % Monocytes (%) (Auto) 5.4 3.0-13.0 % Eosinophils (%) (Auto) 0.2 0.0-8.0 % Basophils (%) (Auto) 0.3 0.0-5.0 % Neutrophils # (Auto) 13.0 H 1.8-7.7 K/uL Lymphocytes # (Auto) 1.3 1.0-4.8 K/uL Monocytes # (Auto) 0.8 0.1-1.0 K/uL Eosinophils # (Auto) 0.03 0.00-0.70 K/uL Basophils # (Auto) 0.04 0.00-0.20 K/uL Absolute Immature Granulocyte (auto 0.25 0-1 K/uL Nucleated Red Blood Cells 0.0 0.0-0.19 % Reticulocyte Count (auto) 1.48771 0.42-2.23 % Immature Reticulocyte Fraction 16.10 H 0.18-0.48 % White Cell Morphology Comment See comments Chemistry Labs: Test 06/14/25 03:15 06/13/25 14:50 06/13/25 12:41 06/13/25 05:12 Range/Units Sodium Level 141 136-145 mmol/L Potassium Level 2.8 *L 3.5-5.1 mmol/L Chloride Level 107 101-111 mmol/L Carbon Dioxide Level 29 21-32 mmol/L Blood Urea Nitrogen 9 7-18 mg/dL Creatinine 0.8 0.5-1.0 mg/dL Glomerular Filtration Rate Calc 79 >90 mL/min Random Glucose 84 70-105 mg/dL Lactic Acid Level 1.3 0.8-2.5 mmol/L Total Calcium 7.7 L 8.5-10.1 mg/dL Magnesium Level 2.30 1.80-2.40 mg/dL Iron Level 16 L 50-170 mcg/dL Total Iron Binding Capacity 217 L 250-450 mcg/dL Percent Iron Saturation 7.3 L 22-44 % Ferritin 180 H 15-150 ng/mL Total Bilirubin 4.0 #H 0.2-1.0 mg/dL Aspartate Amino Transf (AST/SGOT) 99 H 10-37 U/L Alanine Aminotransferase (ALT/SGPT) 135 #H 12-78 U/L Alkaline Phosphatase 273 H 50-136 U/L Total Protein 5.3 L 6.0-8.3 g/dL Albumin 2.3 L 3.5-5.0 g/dL Vitamin B12 Level 345 193-986 pg/mL Ammonia < 10 L 11-32 umol/L Troponin I High Sensitivity 320 *H 4-50 ng/L Procalcitonin 162.23 H 0.05-0.5 ng/mL Free Thyroxine (T4) Direct 1.15 0.76-1.46 ng/dL Free Triiodothyronine (T3) pg/mL 1.34 L 2.18-3.98 pg/mL Hemoglobin A1c 5.5 4.0-6.0 % Estimated Average Glucose (eAG) 111 70-126 mg/dL B-Type Natriuretic Peptide 580 H 0-100 pg/mL Triglycerides Level 82 30-200 mg/dL Cholesterol Level 162 <200 mg/dL LDL Cholesterol 106 H 0-99 mg/dL HDL Cholesterol 50 35-85 mg/dL Thyroid Stimulating Hormone (TSH) 0.33 L 0.36-3.74 uIU/mL Test 06/12/25 23:37 Range/Units Total Creatine Kinase 78 21-232 U/L Coagulation Labs: Test 06/13/25 09:12 Range/Units Prothrombin Time 13.2 H 9.6-11.6 SEC Prothromb Time International Ratio 1.28 H 0.85-1.15 Activated Partial Thromboplast Time 32.2 26.3-35.5 SEC DIAGNOSTICS / RADIOLOGY RESULTS: [ ] PLAN NEURO: Minimize central acting medications as possible. Maintain fall precautions, adequate lighting during the day PULMONARY: Supplemental 02 as needed. Maintain aspiration precautions at all times CARDIOVASCULAR: Follow hemodynamics. Vital signs per facility protocol GI & NUTRITION: Continue with nutritional support. Continue stool softeners and laxatives as needed. KIDNEYS & ELECTROLYTES: Strict monitoring of intake, output and overall fluid balance. Avoid nephrotoxic medications to the extent possible. Medications to be dosed according to renal function. Monitor electrolytes and replace as needed ENDOCRINE: Maintain blood glucose between 100-180 at all times. Hypoglycemia protocol in place INFECTIOUS DISEASE: Trend temperature, WBC and procalcitonin level Follow cultures, deescalate antibiotics as soon as possible. Panculture if new onset fever ONCOLOGY/HEMATOLOGY/COAGULATION: Monitor for s/s of bleeding Monitor hemoglobin, coagulation studies as needed SKIN: Pressure ulcer prevention per facility protocol Specialty mattress ORTHO/REHAB: Continue PT/OT Prophylaxis: Continue GI and DVT prophylaxis Code Status: Full Resuscitation Disposition: TBD Other: Total patient care time exceeds 35 minutes excluding all procedures. CARMEN LEWIS Jun 14, 2025 12:42 Electronically Signed by: CARMEN ANTHONY06/14/25 1242 Electronically Co-Signed by: CONSULTATION REPORT Name: SHILPI SNELL Acct: [id number] MR: [id number] : 1955 Admit Date: 06/13/25 [facility] [place] [address] [place] [id number] [facility] CONSULTATION NOTE Date of Consultation: Jun 14, 2025 Time of Consultation: 14:16 History of Present Illness: THIS IS A 70-YEAR-OLD female with past medical history of mitral valve prolapse hypertension, chronic obstructive pulmonary disease, pulmonary fibrosis, and chronic back pain who presented to the ER via EMS with complaints of generalized body weakness, nausea, vomiting, diarrhea, and a fall. Per ER report patient has some recollection of the events but then she reports that she does not remember what happened and remembers waking up when EMS was there on admission patient was found to have temperature of 103.5, WBC 15.1 HGB, 11.9,HCT 38.2, and platelets of 161. LFTs show elevated bilirubin of 7.3 on admission , AST of 216, ALT of 196, with albumin of 2.5. PT and INR are elevated. Abdominal ultrasound reveals a common bile duct of 1.0 cm postcholecystectomy status, hepatomegaly with hepatic steatosis, dilated left intrahepatic biliary radicles. We were consulted for melena, hyperbilirubinemia, and sepsis. Review of Systems: CONSTITUTIONAL: No malaise or change in sensation of wellbeing. ENMT: No rhinorrhea, otorrhea, sinus pain, ear ache. CARDIOVASCULAR: No angina, palpitations, orthopnea or paroxysmal dyspnea. RESPIRATORY: No SOB. GASTROINTESTINAL: No abdominal pain, nausea, vomiting, diarrhea, hematemesis, melena or change in the patient's habitual bowel movements consistency/number. GENITOURINARY: No dysuria, hematuria or change in bladder continence. MUSCULOSKELETAL: No new muscle pain or decrease in muscular strength. No new joint swelling, redness or tenderness. SKIN: No new rash. Past Medical History: [ ] Past Surgical History: [ ] Past Social History: [ ] Family History: [ ] Coded Allergies: metoprolol (Unverified Allergy, Intermediate, 09/24/15) Physical Exam: GEN: Awake, alert, oriented in person, time and place, and in no acute distress. HEENT: No sinus tenderness. Tympanic membranes were not examined. No rhinorrhea. Oral pharyngeal mucosa is pink, moist and within normal limits. Neck is supple with no cervical lymphadenopathy, thyromegaly or JVD. CHEST: Inspection, palpation and percussion of the chest were unremarkable. Lung auscultation revealed normal breath sounds bilaterally. CARDIAC: PMI is within normal limits. Heart sounds are regular. Normal S1, S2. No gallop or murmur. ABD: Soft, non-tender and not distended. No peritoneal signs on palpation. No organomegaly. Normal bowel sounds. EXT: No cyanosis or clubbing. No edema. SKIN: Intact. No rashes. JOINTS: No evidence of synovitis or acute arthritis. NEURO: Alert and oriented to name, place and person. Cranial nerve examination is unremarkable. No focal motor deficits. Normal speech. Gait is normal. Strength is normal. Vital Sign (Last 24 Hours) 06/14/25 06/14/25 08:00 12:27 Temp 98.2 Pulse 75 Resp 18 B/P (MAP) 135/73 Pulse Ox 93 O2 Delivery Room Air O2 Flow Rate 3 FiO2 32 Intake & Output (last 24hrs) 06/13/25 06/13/25 06/14/25 15:00 23:00 07:00 Intake Total 175 ml 1800.0 ml Output Total 1200 ml Balance -1025 ml 1800.0 ml Laboratory: [ ] Laboratory: Test 06/14/25 03:15 06/13/25 14:50 06/13/25 12:41 06/13/25 09:12 Range/Units White Blood Count 15.4 H 4.8-10.8 K/uL Red Blood Count 3.55 L 4.00-5.50 MIL/uL Hemoglobin 9.5 L 12.0-16.0 g/dL Hematocrit 30.0 L 36-48 % Mean Corpuscular Volume 84.5 79-99 fL Mean Corpuscular Hemoglobin 26.8 L 27.0-33.0 pg Mean Corpuscular Hemoglobin Concent 31.7 L 32.0-36.0 g/dL Red Cell Distribution Width 15.9 H 11.0-15.5 % Platelet Count 104 L 130-400 K/uL Mean Platelet Volume 10.6 H 7.5-10.5 fL Immature Granulocyte % (Auto) 1.6 H 0-1 % Neutrophils (%) (Auto) 84.2 H 40.0-77.0 % Lymphocytes (%) (Auto) 8.3 L 21.0-51.0 % Monocytes (%) (Auto) 5.4 3.0-13.0 % Eosinophils (%) (Auto) 0.2 0.0-8.0 % Basophils (%) (Auto) 0.3 0.0-5.0 % Neutrophils # (Auto) 13.0 H 1.8-7.7 K/uL Lymphocytes # (Auto) 1.3 1.0-4.8 K/uL Monocytes # (Auto) 0.8 0.1-1.0 K/uL Eosinophils # (Auto) 0.03 0.00-0.70 K/uL Basophils # (Auto) 0.04 0.00-0.20 K/uL Absolute Immature Granulocyte (auto 0.25 0-1 K/uL Nucleated Red Blood Cells 0.0 0.0-0.19 % Reticulocyte Count (auto) 1.25840 0.42-2.23 % Immature Reticulocyte Fraction 16.10 H 0.18-0.48 % Sodium Level 141 136-145 mmol/L Potassium Level 2.8 *L 3.5-5.1 mmol/L Chloride Level 107 101-111 mmol/L Carbon Dioxide Level 29 21-32 mmol/L Blood Urea Nitrogen 9 7-18 mg/dL Creatinine 0.8 0.5-1.0 mg/dL Glomerular Filtration Rate Calc 79 >90 mL/min Random Glucose 84 70-105 mg/dL Lactic Acid Level 1.3 0.8-2.5 mmol/L Total Calcium 7.7 L 8.5-10.1 mg/dL Magnesium Level 2.30 1.80-2.40 mg/dL Iron Level 16 L 50-170 mcg/dL Total Iron Binding Capacity 217 L 250-450 mcg/dL Percent Iron Saturation 7.3 L 22-44 % Ferritin 180 H 15-150 ng/mL Total Bilirubin 4.0 #H 0.2-1.0 mg/dL Aspartate Amino Transf (AST/SGOT) 99 H 10-37 U/L Alanine Aminotransferase (ALT/SGPT) 135 #H 12-78 U/L Alkaline Phosphatase 273 H 50-136 U/L Total Protein 5.3 L 6.0-8.3 g/dL Albumin 2.3 L 3.5-5.0 g/dL Vitamin B12 Level 345 193-986 pg/mL Ammonia < 10 L 11-32 umol/L Troponin I High Sensitivity 320 *H 4-50 ng/L Procalcitonin 162.23 H 0.05-0.5 ng/mL Free Thyroxine (T4) Direct 1.15 0.76-1.46 ng/dL Free Triiodothyronine (T3) pg/mL 1.34 L 2.18-3.98 pg/mL Prothrombin Time 13.2 H 9.6-11.6 SEC Prothromb Time International Ratio 1.28 H 0.85-1.15 Activated Partial Thromboplast Time 32.2 26.3-35.5 SEC Test 06/13/25 06:11 06/13/25 05:12 06/13/25 01:51 06/12/25 23:37 Range/Units SARS-CoV-2 Antigen (Rapid) PRESUMPTIVE NEGATIVE NEGATIVE Hemoglobin A1c 5.5 4.0-6.0 % Estimated Average Glucose (eAG) 111 70-126 mg/dL B-Type Natriuretic Peptide 580 H 0-100 pg/mL Triglycerides Level 82 30-200 mg/dL Cholesterol Level 162 <200 mg/dL LDL Cholesterol 106 H 0-99 mg/dL HDL Cholesterol 50 35-85 mg/dL Thyroid Stimulating Hormone (TSH) 0.33 L 0.36-3.74 uIU/mL Urine Color YELLOW YELLOW Urine Appearance CLOUDY H CLEAR Urine pH 6.0 5.0-8.0 Urine Specific [place] 1.008 1.001-1.031 Urine Protein 30 H NEGATIVE mg/dL Urine Glucose (UA) 30 H NEGATIVE mg/dL Urine Ketones NEGATIVE NEGATIVE mg/dL Urine Occult Blood MODERATE H NEGATIVE Urine Nitrate NEGATIVE NEGATIVE Urine Bilirubin NEGATIVE NEGATIVE mg/dL Urine Urobilinogen 0.2 0.2-1.0 mg/dL Urine Leukocyte Esterase 500 H NEGATIVE Amadou/uL Urine RBC 2-5 H 0-1 /HPF Urine WBC 26-50 H 0-1 /HPF Urine Squamous Epithelial Cells MANY 0-2 /HPF Urine Non-Squamous Epithelial Cells 1 0-2 /HPF Urine Other Crystals (Auto) 8 None Seen /HPF Urine Bacteria MOD None Seen /HPF Urine Opiates Screen POSITIVE H NEGATIVE Urine Barbiturates Screen NEGATIVE NEGATIVE Urine Phencyclidine Screen NEGATIVE NEGATIVE Urine Amphetamines Screen NEGATIVE NEGATIVE Urine Benzodiazepines Screen NEGATIVE NEGATIVE Urine Cocaine Screen NEGATIVE NEGATIVE Urine Marijuana (THC) Screen POSITIVE H NEGATIVE White Cell Morphology Comment See comments Total Creatine Kinase 78 21-232 U/L Current Medications Medications (Trade) Dose Ordered Sig/Abby Route PRN Reason Start Time Stop Time Status Last Admin Dose Admin Acetaminophen (TYLenol 325MG TAB) 650 mg Q4H PRN PO MILD PAIN (1-3) 06/13/25 03:00 07/13/25 02:59 Acetaminophen (TYLenol 325MG TAB) 650 mg Q6H PRN PO TEMPERATURE GREATER THAN 101.5 06/13/25 03:00 07/13/25 02:59 06/13/25 11:37 650 MG Acetaminophen/ Hydrocodone Bitart (NORco 10) 1 tab Q4H PRN PO MODERATE PAIN (4-6) 06/13/25 14:30 06/13/25 14:24 DC Acetaminophen/ Hydrocodone Bitart (NORco 10) 1 tab Q6H PRN PO MODERATE PAIN (4-6) 06/13/25 14:30 06/20/25 14:29 06/14/25 12:19 1 TAB Albuterol (DUOneb) 1 udvial [id number] IH 06/13/25 06:00 07/13/25 05:59 06/14/25 10:59 1 UDVIAL Amlodipine Besylate (NorvASC 5MG TAB) 5 mg DAILY PO 06/13/25 14:30 07/13/25 14:29 06/14/25 09:43 5 MG Azithromycin 250 ml @ 250 mls/hr Q24H IVPB 06/13/25 01:00 06/13/25 08:41 DC 06/13/25 02:06 250 MLS/HR Ceftriaxone Sodium (ROCEphine 1G INJ) 1 gm Q12H IV 06/14/25 01:00 06/13/25 08:41 DC Doxycycline Hyclate 250 ml @ 125 mls/hr Q12H IV 06/13/25 14:30 06/13/25 17:49 DC Doxycycline Hyclate 250 ml @ 125 mls/hr Q12H IV 06/13/25 20:00 06/23/25 19:59 06/14/25 09:44 125 MLS/HR Home Med (Home Medication) 10 each DAILY14 PO 06/14/25 14:00 06/14/25 10:33 DC Home Med (Home Medication) Thc 30MG Gummy: DOSE= 15 MG DAILY PO 06/15/25 09:00 07/15/25 08:59 Home Med (Home Medication) Thc Gummy 10MG DAILY14 PO 06/14/25 14:00 07/14/25 13:59 06/14/25 13:40 1 EACH Magnesium Sulfate 50 ml @ 0 mls/hr PROTOCOL PRN IV OTHER [SEE ORDER COMMENTS] 06/13/25 03:00 07/13/25 02:59 06/13/25 10:08 25 MLS/HR Magnesium Sulfate 50 ml @ 0 mls/hr PROTOCOL PRN IV hypomagnesemia 06/13/25 09:00 06/13/25 08:45 DC Metronidazole/ Sodium Chloride 100 ml @ 100 mls/hr Q8H IV 06/13/25 03:00 06/13/25 08:41 DC 06/13/25 04:01 100 MLS/HR Nitroglycerin (Nitrostat) 0.4 mg PROTOCOL PRN SL CHEST PAIN 06/13/25 03:00 07/13/25 02:59 Ondansetron HCl (zoFRAN 4MG INJ) 4 mg Q6H PRN IV NAUSEA/VOMITING 06/13/25 03:00 07/13/25 02:59 Pantoprazole Sodium (PROTonix 40MG INJ) 40 mg DAILY IVP 06/13/25 09:00 07/13/25 08:59 06/14/25 09:43 40 MG Piperacillin Sod/ Tazobactam Sod (Zosyn 3.375gm+NS 50ml) 3.375 gm Q8H IV 06/13/25 09:00 06/23/25 08:59 06/14/25 10:43 3.375 GM Potassium Chloride 10 meq/ Sodium Chloride 50 ml @ 50 mls/hr PROTOCOL IV 06/13/25 00:30 06/13/25 00:32 DC Potassium Chloride 100 ml @ 100 mls/hr AD PRN IV POTASSIUM PROTOCOL 06/13/25 03:00 07/13/25 02:59 Potassium Chloride (K-Dur/Klor-Con 20meq) 20 meq AD PRN PO POTASSIUM PROTOCOL 06/13/25 03:00 07/13/25 02:59 Potassium Chloride (KCl 10% Elixir 20meq/15ml) 20 meq AD PRN PO POTASSIUM PROTOCOL 06/13/25 03:00 07/13/25 02:59 06/14/25 05:23 20 MEQ Sodium Chloride 1,000 ml @ 100 mls/hr Q10H IV 06/13/25 03:00 07/13/25 02:59 06/14/25 13:41 100 MLS/HR Zolpidem Tartrate (AmbIEN) 10 mg HS PRN PO INSOMNIA 06/13/25 14:30 07/13/25 14:29 06/13/25 21:40 10 MG Diagnostics / Radiology: [COPY/PASTE HERE IF NO REPORTS PLEASE DELETE SECTION] Assessment: [Hyperbilirubinema Anemia Melena Elevated Transaminase CBD dilation Hypertension COPD ] Plan: Case Discussed with Dr. Garcia EGD/EUS in am ANGELA CASTELAN WEIGHT CALLER Jun 14, 2025 14:17 Electronically Signed by: Electronically Co-Signed by: Procedure(s): [facility] [address] [place] [id number] IMAGING REPORT Signed PATIENT: SHILPI SNELL MR#: [id number] : 1955 SEX: F AGE: 70 LOCATION: [facility] ORDER 20 STATUS: REG ER REPORT#: [id number] SERVICE 16 REASON: sepsis ORDERING PHYSICIAN: TEOFILO SHANKS MD PROCEDURE: CXR1VW - CHEST 1VW EXAM: CR Chest, 1 view CLINICAL HISTORY: Sepsis. COMPARISON: None provided. FINDINGS: Mild bibasilar airspace disease, likely atelectasis or infiltrates. Mild COPD. No large pleural effusion or pneumothorax. The cardiomediastinal silhouette is within normal limits. No acute osseous abnormality. IMPRESSION: Mild bibasilar airspace disease, likely atelectasis or infiltrates. Mild COPD. /[place] DICTATED BY: DAVID BELTRAN Jr., MD DATE: 06/13/25118 ELECTRONICALLY SIGNED BY: DAVID BELTRAN Jr., MD DATE: 06/13/25118 [facility] [address] [place] [address] IMAGING REPORT Signed PATIENT: SHILPI SNELL MR#: [id number] : 1955 SEX: F AGE: 70 LOCATION: 2DH ORDER STATUS: ADM IN REPORT#: [id number] SERVICE REASON: rancho ll infiltrates, sepsis ORDERING PHYSICIAN: MARTHA BAIRD MD PROCEDURE: CHEST WO - CT CHEST W/O CONTRAST EXAM: Non-contrast CT examination of the chest CLINICAL HISTORY: Bilateral lower lobe infiltrates. Sepsis. TECHNIQUE: Thin collimated axial CT images of the chest were obtained with sagittal and coronal reformatted images also submitted. CT scan is done according to ALARA (As Low as Reasonably Achievable). CONTRAST USED: None. COMPARISON: Chest radiograph dated 06/12/2025. FINDINGS: Symmetrical dependent atelectasis in the bilateral posterior basal lungs. No focal consolidation or pneumonia is evident. No pleural effusion or pneumothorax. No pericardial effusion. Mild to moderate cardiomegaly. Calcific atherosclerotic disease in the thoracic aorta and coronary arteries. Aortic root to ascending thoracic aortic aneurysm measures up to 4.5 x 4.3 cm in diameter. The pulmonary artery tract measures up to 3.5 cm in diameter. No mediastinal, axillary, or supraclavicular lymphadenopathy. Questionable diffuse atrophy of the thyroid gland. Mild left diaphragmatic eventration. There is a 3.1 cm cortical cyst at the right renal upper pole. Status postcholecystectomy. Small hiatus hernia. 2.1 cm hypodense cyst in the left hepatic lobe. Mildly enlarged spleen measures up to 12.8 cm in the long axis. No acute or suspicious osseous abnormality. S-shaped scoliosis. Degenerative osseous changes. IMPRESSION: Symmetrical dependent atelectasis in the bilateral posterior basal lungs. No focal consolidation, pneumonia, pleural effusion, pneumothorax. Aortic root to ascending thoracic aortic aneurysm measures up to 4.5 cm in maximum diameter. Incidental upper abdominal findings as described above. No gross changes within the limits of cross-modality comparison. /[place] DICTATED BY: DAVID BELTRAN Jr., MD DATE: 06/14/25816 ELECTRONICALLY SIGNED BY: DAVID BELTRAN Jr., MD DATE: 06/14/25816 [facility] [address] [place] [address] IMAGING REPORT Signed PATIENT: SHILPI SNELL MR#: [id number] : 1955 SEX: F AGE: 70 LOCATION: 2DH ORDER 1234 [facility]US: [facility] REPORT#: [id number] SERVICE 1226 REASON: coffee colored watery stool , ORDERING PHYSICIAN: MARTHA BAIRD MD PROCEDURE: ABDOMEN - US ABDOMINAL COMPLETE EXAMINATION: ULTRASOUND OF THE ABDOMEN (LIMITED) WITH COLOR DOPPLER. CLINICAL HISTORY: Coffee colored watery stools. COMPARISON: CT abdomen and pelvis with contrast from the same day. TECHNIQUE: Real-time grayscale ultrasound images of the abdomen. In addition, color Doppler is medically necessary to perform in order to evaluate vascularity and blood flow. FINDINGS: Liver: Bulky in caliber, the right hepatic lobe measures 19.0 cm in the craniocaudal dimension. There is increased echogenicity of the hepatic parenchyma. There is no focal hepatic abnormality. There is normal spectral Doppler of the main portal vein. The left intrahepatic biliary radicals are dilated and measures 0.5 cm. Gallbladder: Post cholecystectomy status. Common bile duct is dilated measuring 1.0 cm. Spleen is normal in caliber and measures 11.9 x 3.9 x 4.2 cm in craniocaudal, AP and transverse dimensions respectively. No focal lesions. Pancreas: Head and body appear normal in caliber and echotexture. No calcification or dilated pancreatic duct. Tail is obscured by overlying bowel gas. The left kidney is smaller in caliber and the right kidney is normal in caliber, the right kidney measures 9.7 x 4.1 x 3.6 cm and the left kidney measures 8.8 x 3.5 x 2.4 cm in craniocaudal, AP, and transverse dimensions respectively. There is normal renal cortical thickness, and cortical echogenicity. There is no renal calculus or hydronephrosis. The aorta and inferior vena cava is obscured by overlying bowel gas. IMPRESSION: Hepatomegaly with hepatic steatosis. Dilated left intrahepatic biliary radicals. Post cholecystectomy status. Dilated common bile duct. Recommend MRCP. Relatively small left kidney. Bilateral renal cysts in the CT study from the same day are not visualized. /[place] DICTATED BY: JODIE HUGHES MD DATE: 06/14/25728 ELECTRONICALLY SIGNED BY: JODIE HUGHES MD DATE: 06/14/25728 [place] [id number] [place] [id number] IMAGING REPORT Signed PATIENT: SHILPI SNELL MR#: [id number] : 1955 SEX: F AGE: 70 LOCATION: 2DH ORDER 16 STATUS: ADM IN REPORT#: [id number] SERVICE 131 REASON: acute gastroenteritis ORDERING PHYSICIAN: TRINITY LIMA MD PROCEDURE: ABD PEL W - CT ABDOMEN/PELVIS W/CONTRAST EXAM: CT Abdomen and Pelvis with IV contrast CLINICAL HISTORY: Acute gastroenteritis. TECHNIQUE: Thin collimated axial CT images of the abdomen and pelvis were obtained, with sagittal and coronal reformatted images also submitted. A CT scan is done according to ALARA (As Low As Reasonably Achievable). COMPARISON: None. FINDINGS: Unremarkable visualized lung parenchyma. There is no focal abnormality appreciated within the pancreas, spleen, or adrenals. Status post cholecystectomy. Dilated common bile duct measuring 1.2 cm. Mild central and peripheral dilatation of the biliary radicles. Mild hepatosplenomegaly. 2 cm nonenhancing cyst in the left lobe of the liver. There is a 3 cm cortical exophytic cyst in the upper pole of the right kidney. There is no obvious bowel wall thickening. Bowel loops are normal in caliber without evidence of obstruction or ileus. Small hiatus hernia. Small umbilical hernia containing a loop of small bowel. There is no abnormality within the urinary bladder. Status post hysterectomy. No lymphadenopathy. No free fluid. No pneumoperitoneum. There is patchy atherosclerotic calcification of the aorta and its major branches. There is a stent in the left common iliac vein. There is no acute osseous abnormality. Thoracolumbar spondylosis. Total left hip joint replacement. Intact fixation hardware in the lower lumbar spine. IMPRESSIONS: 1. No acute process in the abdomen and pelvis. 2. Status post cholecystectomy. Dilated common bile duct measuring 1.2 cm. Mild central and peripheral dilatation of the biliary radicles. 3. Mild hepatosplenomegaly. Simple hepatic cyst. 4. Bosniak classification 1 right renal cyst. 5. Small hiatus hernia. 6. Small umbilical hernia containing a loop of small bowel. /[place] DICTATED BY: JODIE HUGHES MD DATE: 06/14/25908 ELECTRONICALLY SIGNED BY: JODIE HUGHES MD DATE: 06/14/[address] [address] IMAGING REPORT Signed PATIENT: SHILPI SNELL MR#: [id number] : 1955 SEX: F AGE: 70 LOCATION: 2D ORDER 104 STATUS: ADM IN REPORT#: [id number] SERVICE 1040 REASON: Fall, head trauma ORDERING PHYSICIAN: ZOLTAN GAUTHIER PROCEDURE: HEAD WO - CT HEAD/BRAIN W/O CONTRAST EXAM: CT examination of the Brain without contrast. CLINICAL HISTORY: Trauma. TECHNIQUE: Thin collimated axial CT images of the brain were obtained with sagittal and coronal reformatted images also submitted. CT scan done according to ALARA (As Low as Reasonably Achievable). CONTRAST USED: None. COMPARISON: None provided. FINDINGS: Right temporo-occipital craniectomy. Mild generalized brain atrophy. No acute intracranial abnormality is present. Mild chronic small vessel ischemic disease. No acute cortical infarction, hemorrhage, mass or mass effect. No hydrocephalus or abnormal extra-axial fluid collections. The posterior fossa is unremarkable. The skull base and calvarium are intact. Hyperostosis frontalis interna. Bilateral post FESS status with mild bilateral ethmoid and maxillary sinusitis. Bilateral mastoid air cells are clear. IMPRESSION: 1. Right temporo-occipital craniectomy defect. 2. Mild generalized brain atrophy and mild chronic small vessel ischemic disease. 3. Mild bilateral ethmoid and maxillary sinusitis, post-FESS status. 4. No acute intracranial hemorrhage, mass, mass effect, or hydrocephalus. /[place] DICTATED BY: DAVID BELTRAN Jr., MD DATE: 06/15/25330 ELECTRONICALLY SIGNED BY: DAVID BELTRAN Jr., MD DATE: 06/15/253[address] [place] [address] IMAGING REPORT Signed PATIENT: SHILPI SNELL MR#: [id number] : 1955 SEX: F AGE: 70 LOCATION: [facility] ORDER 1234 STATUS: [facility] REPORT#: [id number] SERVICE 1226 REASON: h/o mvp, murmur+, severe sepsis ORDERING PHYSICIAN: MARTHA BAIRD MD PROCEDURE: ECHO CMP - ECHO 2-D COMPLETE APPROVED REPORT EXAM: Two-dimensional and M-mode echocardiogram with Doppler and color Doppler. INDICATION ICD: h/o mvp, murmur+, severe sepsis 2D Dimensions RVDd 4.6 cm LVEF(%) 60.6 (>50%) LVED Vol(simp.) 156.0 mL IVSd 0.9 (0.7-1.1cm) FS(%) 32 % LVES Vol(simp.) 63.0 mL LVDd 4.6 (3.8-5.6cm) LA (2D) 4.0 (1.6-4.0cm) LVEF(%, simp.) 59 % PWd 1.2 (0.7-1.1cm) Ao Root(2D) 3.2 (2.0-3.7cm) LA ESV INDEX (BP) 66.31 mL/m2 LVDs 3.1 (2.5-4.0cm) LVOT diam 2.2 (1.8-2.4cm) IVC diam 3.1 cm Deformation Strain Apical 4 -22.1 % Apical 2 -20.1 % Apical 3 -20.1 % Global Strain -20.8 % M-Mode Dimensions EPSS 0.8 cm LA (MM) 4.5 (1.6-4.0cm) Ao Root(MM) 3.5 (2.0-3.7cm) Aortic Valve AoV Vmax 2.2 m/s Ao Peak GR 19.1 mmHg LVOT Vmax 1.2 m/s AoV VTI 0.5 m Ao Mean GR 10.1 mmHg LVOT VTI 0.28 m MAGDALENA (VMAX) 2.08 cm2 MAGDALENA (VTI) 2.2 cm2 Mitral Valve MV E Vmax 96.2 cm/s DECEL Time 172 ms MV A Vmax 86.9 cm/s P 1/2 T 64 ms E/A ratio 1.1 MVA (PHT) 3.4 cm2 TDI E/E' Medial 11.5 E/E' Lateral 12.5 Medial E' Peak V 8.36 cm/s Lateral E' Peak V 7.68 cm/s Tricuspid Valve TR Vmax 1.7 m/s RVSP 10.9 mmHg TR Peak GR 11.4 mmHg Left Ventricle The left ventricular size is normal. There is normal left ventricular wall thickness. LVEF is 55-60%. The left ventricular diastolic function is normal. Right Ventricle The right ventricle is mildly dilated. The right ventricular systolic function is normal. Atria The left atrium is severely dilated. The right atrium is severely dilated. Aortic Valve The aortic valve is normal in structure and function. No aortic regurgitation is present. There is no aortic valvular stenosis. Mitral Valve The mitral valve is normal in structure and function. There is no mitral valve regurgitation noted. There is no mitral valve stenosis. Tricuspid Valve The tricuspid valve is normal in structure and function. There is trivial tricuspid valve regurgitation noted. Pulmonic Valve The pulmonary valve is not well visualized. There is no pulmonic valvular regurgitation. Great Vessels The aortic root is normal in size. IVC is dilated and collapses >50% with inspiration. Pericardium No pericardial effusion. Other Information Quality : Good Rhythm : NSR Conclusion LVEF is 55-60%. The left ventricular diastolic function is normal. The right ventricle is mildly dilated. The left atrium is severely dilated. DICTATED BY: YAZMIN WINKLER DO DATE: 06/14/25 7192 ELECTRONICALLY SIGNED BY: PETERSONYAZMIN DATE: 06/14/25 6746 Endoscopic ultrasound:- Findings: Endoscopic findings:- 1)A small hiatal hernia was present. 2)Segmental mild inflammation characterized by congestion (edema) and erythema was found in the gastric body and in the gastric antrum. Biopsies were taken with a cold forceps for histology. 3)The examined duodenum was normal. Endosonographic findings:- 1) There was a dilation in the common bile duct. 2) Once stone was visualized endosonographically in the common bile duct. The stone measured 7 mm in the greatest dimension. The stone was round. It was hyperechoic and characterized by shadowing. 3) There was no sign of significant endosonographic abnormality in the entire pancreas. The pancreatic duct was regular in contour. Impression:- 1)Small hiatal hernia. 2)Mucosal changes suspicious for gastritis. Biopsied 3)Normal examined duodenum. 4)There was dilation in the common bile duct. 5)One stone was visualized endosonographically in the common bile duct. 6)There was no sign of significant pathology in the entire pancreas. Recommendations:- 1)[facility] care. 2)Clear liquid diet today. 3)Perform an ERCP tomorrow. 4)Observe patient's clinical course. ERCP:- Findings:- A textile designs sales representative film of the abdomen was obtained. Surgical clips, consistent with a previous cholecystectomy, were seen in the area of the right upper quadrant of the abdomen. A biliary sphincterotomy had bed performed. The sphincterotomy appeared open, The bile duct was deeply cannulated with Hydratome sphincterotome, and then switched to a balloon catheter. Contrast was injected. I personally interpreted the bile duct images. Ductal flow of contrast was adequate. Opacification of the main duct was incomplete. The maximum diameter of the ducts was 16mm, in proximal duct. Dilation of the common bile duct with an 8-9-10 mm balloon (to a maximum balloon size of 10 mm) dilator was successful. The biliary tree was swept with a 12 mm and a 15mm balloon starting at the bifurcation, multiple times. Many soft stones and sludge were removed, until d uct cleared. No stones remained, final balloon sweeps were clear. There was good drainage at the end. Impression:- 1)Prior biliary sphincterotomy appeared open. 2)Choledocholithiasis was found. Complete removal was accomplished by balloon extraction (See above). 3)Common bile duct was successfully dilated. 4)The biliary tree was swept. Recommendations:- 1)Clear liquid diet 2)Continue prescribed medications. 3)Monitor LFT's. Assessment/Plan: DISCHARGE DIAGNOSIS: Severe sepsis POA, resolved Acute urinary tract infection POA, resolved Acute gastroenteritis POA Syncope POA ? in the setting of severe sepsis Status post fall at home POA Thrombocytopenia ,lactic acidosis - sepsis related liver dysfunction Choledocholithiasis causing common bile duct obstruction, POA s/p ERCP, stone removal and CBD dilation on 06/16/2025 Hypokalemia POA Acute kidney injury POA prerenal etiology Elevated troponin, type 2 [place] in the setting of sepsis POA Euthyroid sick syndrome in the setting of sepsis Pulmonary fibrosis POA Acute on chronic hypoxemic respiratory failure on home O2 POA Iron deficiency anemia Thoracic Ascending Aortic aneurysm 4.5 cm,POA Chronic back pain POA Chronic anemia POA Headache POA Hypertension POA Hyperglycemia POA Chronic obstructive pulmonary disease POA Recent COVID infection POA ASSESSMENT/PLAN: Severe sepsis POA: source : Acute urinary tract infection POA resolved Syncope POA ? in the setting of severe sepsis Status post fall at home POA lactic acidosis , - sepsis related liver dysfunction Blood culture growing Klebsiella aerogens and the final report is negative. Continue on IV Zosyn and IV Doxycycline. Choledocholithiasis causing common bile duct obstruction, POA s/p ERCP, stone removal and CBD dilation on 06/16/2025 Gastroenterology saw the patient and advised EGD and it showed stones in the common bile duct. ERCP is recommended and its done today. It showed choledocholithiasis and they are removed. Acute gastroenteritis POA Pending stool culture, c diff, stool occult blood test GI saw the patient and they recommended MRCP but she is not NPO for MRCP they put it on hold. Also GI recommended EGD with EUS in am. EGD with EUS was done and it showed stones in the common bile duct. ERCP is done today. It showed choledocholithiasis and they are removed. Hypokalemia POA Today her potassium is 3.4. Euthyroid sick syndrome in the setting of sepsis TSH 0.33, T3 1.34, T4 1.15 repeat thyroid levels in a month. Pulmonary fibrosis POA Acute on chronic hypoxemic respiratory failure on home O2 POA Patient on NC oxygen supplementation Iron deficiency anemia Gave IV iron sucrose because her iron is 16, transferrin saturation is 7.3. repeat anemia panel in a month. Hypertension POA Continue lisinopril. Thoracic Ascending Aortic aneurysm 4.5 cm,POA Cardiology saw the patient and they recommended repeat CTA in 6 months and follow up with primary insurance checker Dr. Moncada in 2 to 3 weeks. Soft diet was advised. Activity as tolerated. Discharge Instructions: DATE OF ADMISSION: 06/13/2025 DATE OF DISCHARGE: 06/18/2025 DISPOSITION: senior living facility CONDITION: medically stable CONSULTANTS: TRINITY LIMA MD (INFECTIOUS DISEASE) JEMAL BAIG NP (GASTROENTEROLOGY) PETERSON KEITH MD (CARDIOLOGY) PARVEEN PAULA (PULMONOLOGY) ANGELA CASTELAN (GASTROENTEROLOGY) DISCHARGE INSTRUCTIONS: CTA chest in 6 months for ascending aortic aneurysm No statin due to elevated transaminases No beta amparo due to history of metoprolol allergy Elevated troponin likely sales representative livestock of type II [place]. Can evaluate with non invasive pharmacologic stress testing in outpatient setting following recovery of acute illness. FOLLOW-UP: 1)Follow up with primary care physician in 2-3 days. 2)Follow up with insurance checker in 2 to 3 weeks. 3)Follow up with animal physiology teacher in 2 to 3 weeks. 4)Follow up with Toll Patrolman in 2 to 3 weeks. PROCEDURES: IMAGING: report attached to summary MICROBIOLOGY: report attached to summary HOME MEDICATIONS: report attached to summary NEW MEDICATIONS: report attached to summary EMERGENCY INSTRUCTIONS: The patient was instructed to present to the nearest emergency department or call 911 once their symptoms will return or worsen. Home Medications: Reported Medications Mycophenolate Mofetil (Cellcept) 500 Mg Tablet, 2 TAB PO BID for 30 Days, #120 TAB 0 Refills 06/14/25 [Thc 10MG Gummy] No Conflict Check, 10 MG PO Q2PM 06/14/25 [Thc 30MG Gummy] No Conflict Check, 15 MG PO DAILY 06/14/25 Metaxalone (Skelaxin) 800 Mg Tablet, 800 MG PO TID PRN for MUSCLE SPASMS, TAB 09/25/15 Hydrocodone/Acetaminophen (Hydrocodon-Acetaminophn 10-325) 1 Each Tablet, 1 TAB PO QID PRN for PAIN, TAB 09/25/15 Zolpidem Tartrate (Ambien) 10 Mg Tablet, 10 MG PO HS PRN for INSOMNIA, TAB 09/25/15 Lisinopril (Lisinopril) 10 Mg Tablet, 10 MG PO DAILY, TAB 09/25/15 Discontinued Scripts Acetaminophen with Codeine (Tylenol with Codeine #3 Tablet) 1 Each Tablet, 1-2 TAB PO Q6H PRN for PAIN, #20 TAB Prov:GIOVANNI CARBAJAL MD 09/28/15 Time spent arranging discharge: 1-30 minutes ATTESTATION BY PHYSICIAN I have seen and examined the patient. I reviewed the documentation, medical decision making, and treatment plan as noted by the resident provider above. I agree with the findings and plan of care. Arslan Bah MD, AKSHAY MD Jun 18, 2025 16:20
--- NOTE | 2025-06-18 23:54 | PN ---
INFECTIOUS DISEASE PROGRESS NOTE Date of Service: Jun 18, 2025 SUBJECTIVE: This is a 70-year-old female patient who was seen at bedside in room 226. Patient is awake, alert and oriented x3. Patient has been evaluated by physical therapy and per report patient ambulated 60 ft this morning. Patient has been referred to [facility] and pending insurance approval. We will continue on Zosyn and doxycycline. PHYSICAL EXAM EYES: Anicteric. Pupils equal and reactive. HENT: No oral thrush seen, moist Oral mucosa. NECK: Supple, no JVD or thyromegaly. LUNGS: No rales, no rhonchi. Oxygen via nasal cannula. CARDIOVASCULAR: S1, S2 regular. No murmur heard. ABDOMEN: Soft, non tender, bowel sounds present, no organomegaly. CENTRAL NERVOUS SYSTEM: Awake, alert, oriented x 3. SKIN: No rashes, no swelling. LYMPHATICS: No peripheral lymphadenopathy. MUSCULOSKELETAL: No joint swelling, erythema or tenderness. EXTREMITIES: No cyanosis or clubbing. BACK: No deformity, no pressure ulcer. GENITOURINARY: No dysuria or hematuria. Intake & Output (last 24hrs) 06/17/25 06/17/25 06/18/25 15:00 23:00 07:00 Intake Total 780.0 ml 540.0 ml 50.0 ml Output Total 350 ml 650 ml 1000 ml Balance 430.0 ml -110.0 ml -950.0 ml LABS: Laboratory: Test 06/18/25 03:33 06/17/25 03:41 Range/Units White Blood Count 9.4 4.8-10.8 K/uL Red Blood Count 3.88 L 4.00-5.50 MIL/uL Hemoglobin 10.1 L 12.0-16.0 g/dL Hematocrit 33.0 L 36-48 % Mean Corpuscular Volume 85.1 79-99 fL Mean Corpuscular Hemoglobin 26.0 L 27.0-33.0 pg Mean Corpuscular Hemoglobin Concent 30.6 L 32.0-36.0 g/dL Red Cell Distribution Width 15.9 H 11.0-15.5 % Platelet Count 181 # 130-400 K/uL Mean Platelet Volume 10.0 7.5-10.5 fL Immature Granulocyte % (Auto) 5.7 H 0-1 % Neutrophils (%) (Auto) 61.9 40.0-77.0 % Lymphocytes (%) (Auto) 23.1 21.0-51.0 % Monocytes (%) (Auto) 8.3 3.0-13.0 % Eosinophils (%) (Auto) 0.4 0.0-8.0 % Basophils (%) (Auto) 0.6 0.0-5.0 % Neutrophils # (Auto) 5.8 1.8-7.7 K/uL Lymphocytes # (Auto) 2.2 1.0-4.8 K/uL Monocytes # (Auto) 0.8 0.1-1.0 K/uL Eosinophils # (Auto) 0.04 0.00-0.70 K/uL Basophils # (Auto) 0.06 0.00-0.20 K/uL Absolute Immature Granulocyte (auto 0.53 0-1 K/uL Nucleated Red Blood Cells 0.0 0.0-0.19 % Sodium Level 141 136-145 mmol/L Potassium Level 3.4 L 3.5-5.1 mmol/L Chloride Level 105 101-111 mmol/L Carbon Dioxide Level 29 21-32 mmol/L Blood Urea Nitrogen 13 7-18 mg/dL Creatinine 0.6 0.5-1.0 mg/dL Glomerular Filtration Rate Calc 96 >90 mL/min Random Glucose 112 H 70-105 mg/dL Total Calcium 9.1 8.5-10.1 mg/dL Total Bilirubin 1.1 #H 0.2-1.0 mg/dL Aspartate Amino Transf (AST/SGOT) 35 10-37 U/L Alanine Aminotransferase (ALT/SGPT) 64 12-78 U/L Alkaline Phosphatase 203 H 50-136 U/L Total Protein 6.0 6.0-8.3 g/dL Albumin 2.7 L 3.5-5.0 g/dL Procalcitonin 16.14 H 0.05-0.5 ng/mL ASSESSMENT: Klebsiella aerogenes bacteremia. Urinary tract infection with Klebsiella aerogenes. Sepsis. Leukocytosis, resolving. Hypokalemia. Dilated common bile duct, status post ERCP with findings of choledocholithiasis with successful extraction. Elevated liver enzymes. Obesity. Debility. PLAN: Continue doxycycline. Continue Zosyn IV. Continue GI prophylaxis. We will follow up on the final culture results. Continue pain management. Patient has been referred to [facility] for rehab and pending insurance approval. This case was reviewed and discussed with my supervising physician and the above assessment and plan was formulated and agreed upon. ATTESTATION BY PHYSICIAN I have seen and examined the patient. I reviewed the documentation, medical decision making, and treatment plan as noted by the mid-level provider above. I agree with the findings and plan of care. TRINITY LIMA MD, [facility] Jun 18, 2025 23:54
== END 2025-06-18 16:46 | DRG 871 ==
LOC: EDH 23:05 → EDHIP 06-13 02:36 → 2DH 06-13 10:45
PROVIDERS: ADMIT Hospitalist; ATTEND Hospitalist
PROC: 0DB68ZX Excision of Stomach, Via Natural or Artificial Opening Endoscopic, Diagnostic (ICD-10-PCS; 2025-06-15)
PROC: 0DB78ZX Excision of Stomach, Pylorus, Via Natural or Artificial Opening Endoscopic, Diagnostic (ICD-10-PCS; 2025-06-15)
PROC: 0F798ZZ Dilation of Common Bile Duct, Via Natural or Artificial Opening Endoscopic (ICD-10-PCS; principal; 2025-06-16)
PROC: 0FC98ZZ Extirpation of Matter from Common Bile Duct, Via Natural or Artificial Opening Endoscopic (ICD-10-PCS; 2025-06-16)
PROC: 05HY33Z Insertion of Infusion Device into Upper Vein, Percutaneous Approach (ICD-10-PCS; 2025-06-16)
DX: A41.50 Gram-negative sepsis, unspecified (principal); I21.A1 Myocardial infarction type 2; J96.21 Acute and chronic respiratory failure with hypoxia; N39.0 Urinary tract infection, site not specified; N17.9 Acute kidney failure, unspecified; E87.20 Acidosis, unspecified; Z68.41 Body mass index [BMI] 40.0-44.9, adult; R65.20 Severe sepsis without septic shock; K52.9 Noninfective gastroenteritis and colitis, unspecified; E87.6 Hypokalemia; I10 Essential (primary) hypertension; J44.9 Chronic obstructive pulmonary disease, unspecified; J84.10 Pulmonary fibrosis, unspecified; D69.6 Thrombocytopenia, unspecified; G89.29 Other chronic pain; B96.1 Klebsiella pneumoniae [K. pneumoniae] as the cause of diseases classified elsewhere; D50.9 Iron deficiency anemia, unspecified; E07.81 Sick-euthyroid syndrome; E66.9 Obesity, unspecified; G43.909 Migraine, unspecified, not intractable, without status migrainosus; I34.1 Nonrheumatic mitral (valve) prolapse; K80.50 Calculus of bile duct without cholangitis or cholecystitis without obstruction; K76.89 Other specified diseases of liver; K76.0 Fatty (change of) liver, not elsewhere classified; K44.9 Diaphragmatic hernia without obstruction or gangrene; K42.9 Umbilical hernia without obstruction or gangrene; I71.21 Aneurysm of the ascending aorta, without rupture; Z82.0 Family history of epilepsy and other diseases of the nervous system; Z82.5 Family history of asthma and other chronic lower respiratory diseases; Z85.828 Personal history of other malignant neoplasm of skin; Z86.16 Personal history of COVID-19; Z82.49 Family history of ischemic heart disease and other diseases of the circulatory system; Z86.718 Personal history of other venous thrombosis and embolism; Z90.710 Acquired absence of both cervix and uterus; Z99.81 Dependence on supplemental oxygen; Z79.899 Other long term (current) drug therapy
CPT/HCPCS: 36415; 36556; 43237; 43239; 43264; 43277; 70450; 71045; 71250; 74177; 74328; 76700; 80048; 80053; 80061; 80305; 81001; 82140; 82550; 82607; 82728; 83036; 83605; 83735; 83880; 84145; 84439; 84443; 84481; 84484; 85025; 85610; 85730; 87040; 87086; 87186; 87426; 92610; 93005; 93306; 93356; 94640; 94664; 99285; A4606; C1769; C1773; C1894; G0378; J0330; J0456; J0696; J1100; J1756; J2003; J2250; J2270; J2371; J2405; J2470; J2543; J2704; J2710; J3010; J3475; J3480; J3490; J7030; Q9967; A4215; A4222; A4223; A4620; A4657; A7002; C1751; C1877